=== PATIENT | male | born 1945 | race Caucasian/White ===

== ENCOUNTER → 2017-02-17 | Outpatient (CLI) | payer OTHER ==
[~2017-02-17] MED LIST: AMR2 PO; ASPEC81 PO; GLC500 PO; LISI-725 PO; OXYC-57 PO; SIMV80TA2 PO
[2017-02-17 14:31] LABS: ALT/SGPT 27 U/L (12-78); AST/SGOT 23 U/L (15-37); BLOOD UREA NITROGEN 20 mg/dl (7-18); BUN/CREATININE RATIO 11.6 (10-20); CALCIUM 8.2 mg/dl (8.5-10.1); CARBON DIOXIDE 21 mmol/L (21-32); CHLORIDE 107 mmol/L (98-107); CREATININE 1.72 mg/dl (0.60-1.40); GLUCOSE 96 mg/dl (70-99); HDL CHOLESTEROL 30 mg/dl; POTASSIUM 3.6 mmol/L (3.5-5.1); SODIUM 137 mmol/L (136-145); URIC ACID 6.7 mg/dl (2.6-7.2)
[2017-02-17 14:42] LABS: ALB/GLOB RATIO 0.9 (0.9-2); ALKALINE PHOSPHATASE 109 U/L (45-117); CHOLESTEROL 104 mg/dl (0-200); CHOLESTEROL/HDL RATIO 3.5; LDL CHOLESTEROL CALCULATED 46 mg/dl; TRIGLYCERIDES 141 mg/dl (0-150); VERY LOW DENSITY LIPOPROT CALC 28 mg/dl
[2017-02-18 07:46] LABS: ESTIMATED AVERAGE GLUCOSE 177 mg/dl; HA1C FLAG Normal (Normal)
== END | disposition home or self-care (01) ==
LOC: C.LAB 12:02
PROVIDERS: ATTEND Internal Medicine Pulmonary Disease
DX: M10.00 Idiopathic gout, unspecified site (principal)

== ENCOUNTER → 2017-04-19 | Outpatient (CLI) | payer OTHER ==
--- NOTE | 2017-04-19 11:41 | DIAGNOSTIC IMAGING REPORT ---
(RENAL)RETROPERITON COMP HISTORY: Renal insufficiency N18.3 Chronic kidney disease, stage III (moderate)[id number] COMPARISON: CT dated 2010 FINDINGS: Right kidney: Moderate cortical scarring. Maximum dimension 10.5 cm. Several small cyst measuring 2.1 cm. No evidence for hydronephrosis. Left kidney: Maximum dimension 13.3 cm. 5.1 cm complex partially cystic lesion upper pole left kidney. This appears to be somewhat increased in size compared to a prior cystic and or low density process on the CT study. See noted. Moderate cortical scarring. Bladder: No bladder wall thickening. The bilateral ureteral jets were identified. IMPRESSION: 1. Potential complex 5 cm partially cystic lesion upper pole left kidney. 2. Given the patient's renal function, MRI of the kidneys suggested as follow-up to exclude neoplastic process. 3. Mild cortical scarring of both kidneys with several small cysts. 4. No evidence for hydronephrosis. The above report was generated using voice recognition software. It may contain grammatical, syntax or spelling errors. Electronically signed by: Saleem Mayo M.D. 04/19/2017 11:40 AM Dictated Date/Time: 04/19/2017 11:32 AM
== END | disposition home or self-care (01) ==
LOC: C.ULTRBC 10:50
PROVIDERS: ATTEND Internal Medicine Nephrology
DX: N18.3 Chronic kidney disease, stage 3 (moderate) (principal)

== ENCOUNTER → 2017-05-02 | Outpatient (CLI) | payer OTHER ==
[2017-05-02 18:44] LABS: BASO % 0.7 %; BASO ABS # 0.06 K/uL (0-0.2); EOS % 3.4 %; EOS ABS # 0.29 K/uL (0-0.5); HEMATOCRIT 45.9 % (42-52); HEMOGLOBIN 15.5 g/dL (14.0-18.0); IG# 0.01 K/uL (0.00-0.02); LYMPH % 29.6 %; LYMPH ABS # 2.49 K/uL (1.2-3.4); MEAN CELL VOLUME 92.2 fL (80-100); MEAN CORPUSCULAR HEMOGLOBIN 31.1 pg (25-34); MEAN CORPUSCULAR HGB CONC 33.8 g/dl (32-36); MEAN PLATELET VOLUME 9.7 fL (7.4-10.4); MONO % 5.9 %; NEUT % 60.3 %; NEUT ABS # 5.07 K/uL (1.4-6.5); PLATELET COUNT 206 K/uL (130-400); RED CELL DISTRIBUTION WIDTH CV 13.4 % (11.5-14.5); RED CELL DISTRIBUTION WIDTH SD 44.7 fL (36.4-46.3); WHITE BLOOD COUNT 8.42 K/uL (4.8-10.8)
[2017-05-02 19:05] LABS: ALBUMIN 3.2 gm/dl (3.4-5.0); BLOOD UREA NITROGEN 19 mg/dl (7-18); CALCIUM 9.1 mg/dl (8.5-10.1); CARBON DIOXIDE 26 mmol/L (21-32); CREATININE 1.56 mg/dl (0.60-1.40); GLUCOSE 136 mg/dl (70-99); POTASSIUM 4.2 mmol/L (3.5-5.1); SODIUM 139 mmol/L (136-145)
[2017-05-02 19:06] LABS: PHOSPHORUS 2.2 mg/dl (2.5-4.9)
== END | disposition home or self-care (01) ==
LOC: C.LAB 17:39
PROVIDERS: ATTEND Internal Medicine Nephrology
DX: N18.3 Chronic kidney disease, stage 3 (moderate) (principal); E11.22 Type 2 diabetes mellitus with diabetic chronic kidney disease

== ENCOUNTER → 2017-05-09 | Outpatient (CLI) | payer OTHER ==
[~2017-05-09] MED LIST changes: +GADAVIST IV PRN
--- NOTE | 2017-05-09 16:04 | DIAGNOSTIC IMAGING REPORT ---
ABDOMEN COMBO CLINICAL HISTORY: 71 years-old Male presenting with RENAL CYST, complex left upper pole renal cyst, history of appendectomy. TECHNIQUE: Multisequence, multiplanar MR imaging of the abdomen was performed before and after the administration of intravenous contrast. IV contrast: 11.5 mL of Gadavist. COMPARISON: Renal ultrasound from 04/19/[address] from 10/27/2010. FINDINGS: Localizer images: Unremarkable. Lung bases: Lungs and pleural spaces clear. Normal heart size. No pericardial or pleural effusion. Liver: Normal morphology. Normal hepatic fat fraction (less than 5%). No focal lesion. Patent hepatic vasculature. Biliary: No intrahepatic or extrahepatic biliary ductal dilatation. Normal gallbladder. Pancreas: Moderate parenchymal atrophy. Spleen: Normal. Adrenal glands: Normal. Kidneys and ureters: Complex multilocular 4.4 x 3.9 x 3.6 cm cystic lesion at the upper pole of the left kidney. This is multilobular with numerous septations measuring up to 3 mm in thickness. Septations demonstrate enhancement. Central solid nodularity also noted at the superior aspect. No invasion of the perinephric fat. The mass extends to the renal sinus fat at the upper pole. No vascular invasion. Few subcentimeter well-defined nonenhancing T2 hyperintense simple cysts also noted in both kidneys. No hydronephrosis. Single right renal artery. 2 left renal arteries. Single conventional renal veins. Bowel: Normal. No bowel obstruction. Peritoneal cavity: No free fluid or intraperitoneal gas. Lymph nodes: No enlarged lymph nodes in the abdomen. Vasculature: Aorta and IVC patent and normal in caliber. Abdominal wall: Normal. Musculoskeletal: Normal. IMPRESSION: 1. Complex indeterminate cystic mass measuring 4.4 cm and the left kidney (Bosniak 3). Urologic surgical consultation recommended recommended given the concern for neoplasm. No lymphadenopathy or regional invasion. The report will be called/faxed according to standard departmental protocol. Electronically signed by: Dylan Conklin M.D. 05/09/2017 4:03 PM Dictated Date/Time: 05/09/2017 3:51 PM
== END | disposition home or self-care (01) ==
LOC: C.MRI 14:25
PROVIDERS: ATTEND Internal Medicine Nephrology
DX: N28.1 Cyst of kidney, acquired (principal)

== ENCOUNTER → 2017-05-10 | Outpatient (CLI) | payer OTHER ==
[~2017-05-10] MED LIST changes: -GADAVIST IV PRN
[2017-05-10 12:48] LABS: BLOOD UREA NITROGEN 21 mg/dl (7-18); CREATININE 1.55 mg/dl (0.60-1.40)
== END | disposition home or self-care (01) ==
LOC: C.LAB1850 11:24
PROVIDERS: ATTEND Internal Medicine Nephrology
DX: N18.3 Chronic kidney disease, stage 3 (moderate) (principal)

== ENCOUNTER → 2017-07-18 | Outpatient (CLI) | payer OTHER ==
[2017-07-18 14:38] LABS: BASO % 0.5 %; BASO ABS # 0.04 K/uL (0-0.2); EOS ABS # 0.25 K/uL (0-0.5); HEMATOCRIT 49.5 % (42-52); HEMOGLOBIN 16.5 g/dL (14.0-18.0); IG# 0.02 K/uL (0.00-0.02); LYMPH % 28.4 %; LYMPH ABS # 2.36 K/uL (1.2-3.4); MEAN CELL VOLUME 93.6 fL (80-100); MEAN CORPUSCULAR HEMOGLOBIN 31.2 pg (25-34); MEAN CORPUSCULAR HGB CONC 33.3 g/dl (32-36); MEAN PLATELET VOLUME 9.8 fL (7.4-10.4); MONO % 5.9 %; MONO ABS # 0.49 K/uL (0.11-0.59); NEUT ABS # 5.15 K/uL (1.4-6.5); PLATELET COUNT 184 K/uL (130-400); RED CELL DISTRIBUTION WIDTH CV 13.5 % (11.5-14.5); RED CELL DISTRIBUTION WIDTH SD 45.9 fL (36.4-46.3); WHITE BLOOD COUNT 8.31 K/uL (4.8-10.8)
[2017-07-18 15:34] LABS: ALBUMIN 3.5 gm/dl (3.4-5.0); ALKALINE PHOSPHATASE 105 U/L (45-117); ALT/SGPT 25 U/L (12-78); AST/SGOT 19 U/L (15-37); BLOOD UREA NITROGEN 26 mg/dl (7-18); CALCIUM 9.4 mg/dl (8.5-10.1); CARBON DIOXIDE 27 mmol/L (21-32); CREATININE 1.67 mg/dl (0.60-1.40); GLUCOSE 83 mg/dl (70-99); POTASSIUM 4.5 mmol/L (3.5-5.1); SODIUM 141 mmol/L (136-145); TOTAL PROTEIN 7.4 gm/dl (6.4-8.2)
[2017-07-18 15:36] LABS: CHOLESTEROL 135 mg/dl (0-200); LDL CHOLESTEROL CALCULATED 70 mg/dl
[2017-07-19 06:33] LABS: HEMOGLOBIN A1C 7.1 % (4.5-5.6)
== END | disposition home or self-care (01) ==
LOC: C.LAB1850 13:48
PROVIDERS: ATTEND Internal Medicine Pulmonary Disease
DX: K11.20 Sialoadenitis, unspecified (principal); N18.3 Chronic kidney disease, stage 3 (moderate)

== ENCOUNTER → 2017-08-04 | Outpatient (CLI) | payer OTHER ==
[2017-08-04 14:40] LABS: BASO % 0.6 %; BASO ABS # 0.04 K/uL (0-0.2); EOS % 3.9 %; EOS ABS # 0.28 K/uL (0-0.5); IG# 0.02 K/uL (0.00-0.02); LYMPH % 30.1 %; LYMPH ABS # 2.17 K/uL (1.2-3.4); MEAN CELL VOLUME 91.8 fL (80-100); MEAN CORPUSCULAR HEMOGLOBIN 31.3 pg (25-34); MONO ABS # 0.43 K/uL (0.11-0.59); NEUT % 59.1 %; NEUT ABS # 4.28 K/uL (1.4-6.5); PLATELET COUNT 192 K/uL (130-400); RED CELL DISTRIBUTION WIDTH CV 13.5 % (11.5-14.5); RED CELL DISTRIBUTION WIDTH SD 45.3 fL (36.4-46.3); WHITE BLOOD COUNT 7.22 K/uL (4.8-10.8)
[2017-08-04 15:05] LABS: ALBUMIN 3.4 gm/dl (3.4-5.0); BLOOD UREA NITROGEN 24 mg/dl (7-18); CALCIUM 8.8 mg/dl (8.5-10.1); CARBON DIOXIDE 24 mmol/L (21-32); CREATININE 1.59 mg/dl (0.60-1.40); GLUCOSE 97 mg/dl (70-99); POTASSIUM 4.3 mmol/L (3.5-5.1); SODIUM 140 mmol/L (136-145)
== END | disposition home or self-care (01) ==
LOC: C.LAB1850 13:43
PROVIDERS: ATTEND Internal Medicine Nephrology
DX: N18.3 Chronic kidney disease, stage 3 (moderate) (principal)

== ENCOUNTER → 2017-11-06 | Outpatient (CLI) | payer OTHER ==
[~2017-11-06] MED LIST changes: -AMR2 PO; -ASPEC81 PO; +ATOR-24 PO; +CHOL1000 PO; +CLC100 PO; -GLC500 PO; +GLIM4TAB2 PO; +LEVO100T7 PO; -LISI-725 PO; +METF-384 PO; -OXYC-57 PO; +OXYC7.5T62 PO; -SIMV80TA2 PO
[2017-11-06 13:15] LABS: BASO % 0.5 %; BASO ABS # 0.04 K/uL (0-0.2); EOS ABS # 0.31 K/uL (0-0.5); HEMATOCRIT 44.8 % (42-52); IG# 0.03 K/uL (0.00-0.02); LYMPH % 26.2 %; LYMPH ABS # 2.03 K/uL (1.2-3.4); MEAN CELL VOLUME 92.4 fL (80-100); MEAN CORPUSCULAR HEMOGLOBIN 30.9 pg (25-34); MEAN CORPUSCULAR HGB CONC 33.5 g/dl (32-36); MEAN PLATELET VOLUME 10.2 fL (7.4-10.4); MONO % 6.3 %; MONO ABS # 0.49 K/uL (0.11-0.59); NEUT % 62.6 %; NEUT ABS # 4.86 K/uL (1.4-6.5); PLATELET COUNT 237 K/uL (130-400); RED CELL DISTRIBUTION WIDTH CV 12.9 % (11.5-14.5); RED CELL DISTRIBUTION WIDTH SD 43.6 fL (36.4-46.3); WHITE BLOOD COUNT 7.76 K/uL (4.8-10.8)
[2017-11-06 13:44] LABS: HEMOGLOBIN A1C 6.7 % (4.5-5.6)
[2017-11-06 13:48] LABS: ALBUMIN 3.2 gm/dl (3.4-5.0); BLOOD UREA NITROGEN 26 mg/dl (7-18); CALCIUM 8.8 mg/dl (8.5-10.1); CARBON DIOXIDE 24 mmol/L (21-32); GLUCOSE 100 mg/dl (70-99); PHOSPHORUS 2.7 mg/dl (2.5-4.9); POTASSIUM 4.2 mmol/L (3.5-5.1); SODIUM 139 mmol/L (136-145)
== END | disposition home or self-care (01) ==
LOC: C.LAB1850 12:14
PROVIDERS: ATTEND Internal Medicine Nephrology
DX: N18.3 Chronic kidney disease, stage 3 (moderate) (principal)

== ENCOUNTER 2020-12-06 03:16 | Inpatient (IN) ==
[2020-12-06] MEDS ORDERED: SODIUM CHLORIDE 0.9% 1000ML 1,000 ML IV ONE (04:05)
--- NOTE | 2020-12-06 04:09 | Emergency Department Note ---
Impression & Plan COVID-19, Acute dehydration, Hypoxia, BETTE (acute kidney injury) ED Provider Note Name: GARRY BANUELOS Age: 75 Sex: M Arrives Via: Walk-In Informant: Patient ED Provider: Samson Coronado MD Chief Complaint: Covid Impression: As Above Medical Decision Makin yr old male arrives with acute worsening weakness and cough noting his O2 sats have been in the 80s at home. Exposed 7 days ago and symptoms 4 days ago for COVID which he tested positive for. Afebrile but very dehydrated and mildly dyspneic. CXR with covid findings. Sats gradually trending in to the 80s and thus started IV steroids and placed in NC O2. Given IV fluids and feeling much improvement. No leg swelling nor calf pain and no history dvt/pe. He has mildly elevated Dimer which is within his age range and is consistent with covid. I do not feel this represents PE at this time and given BETTE would not risk contrast bolus. BETTE new compared to previous labs and consistent with dehydration by exam. Initially ekg with lateral ST depressions likely respiratory related as trop is currently normal. Hospitalist will evaluate further. Triage/Nursing Notes reviewed by Me Additional history obtained from chart Differentials:Reactive airway disease, pneumonia, pneumothorax, COPD, CHF, infections, cardiac ischemia, pulmonary embolism, musculoskeletal, gastrointestinal, as well as other pathologies. Vital Signs: reviewed and remarkable for hypoxia, tachypnea Interventions: saline lock, nss bolus, decadron 10mg IV Labs:Reviewed and remarkable for elevated cr Imaging:X ray results are stated below per my interpretation: Chest: 1 view: Viral pattern EKG:Per My Interpretation: Indication Shortness of breath: NSR 89 bpm, qtc 396. New lateral ST depressions. No Ectopy. No Ischemia. Compared to EKG 09/06/17 HR has increased and new lateral ST depressions. Cardiac/Tele Monitoring: Cardiac Monitoring: An Order was placed for continuous cardiac monitoring. The monitor shows a rate of 80 with a normal sinus rhythm. Consults:Dr Lay Hospitalist Plan: Disposition:Hospitalization. Condition: Good History of Present Illness:75 yr old male arrives for evaluation of shortness of breath. Patient with covid exposure 1 week ago then developed sore throat 4 days ago. Worsening cough and had covid test done which was positive. NOtes the last few days very tired, fatigued, with cough and lack of appetite. He has lost 6 lbs in the last few days due to not eating. The last 12 hours feeling short of breath and oxygen was in the 80s at home thus he came to ED. Notes feeling better currently. No current chest pain, syncope, nausea, vomiting, diarrhea, abdominal pain, back pain, leg swelling, calf pain, rashes, fevers, nor other symptoms. He was fully vaccinated vs covid several months ago. No falls, trauma injury. Exertion makes worse, rest makes better. No medications prior to arrival. ROS: See above HPI for pertinent positives & negatives. A total of 10 systems reviewed and were otherwise negative. Past Medical History:See Below Past Surgical History:See Below Family History:See Below Social History:See Below Home Medications:See Below Allergies:NKDA Vitals:Blood Pressure: 112/66, Pulse 95, RR 22, T 36.8C, O2 95% on RA Physical Exam: GENERAL: Patient is tired and dehydrated appearing and in minimal distress. EYES: No scleral icterus, unremarkable pupils. ENT: Mucous membranes dry, no nasal congestion. NECK: No masses appreciated, nomeningismus, trachea is midline. RESPIRATORY: Crackles all lung garcia without dyspnea. Clear to auscultation and equal bilaterally. No wheeze. CARDIOVASCULAR: Regular rate and rhythm.Mild tachypnea, No murmurs, rubs, gallops appreciated. GASTROINTESTINAL: Abdomen soft, non-tender, no peritonitis.Bowel sounds positive.No masses appreciated. BACK: No midline tenderness, no CVA tenderness EXTREMITIES: Normal motion all extremities, no cyanosis, no edema. NEUROLOGIC: Alert and oriented, no acute motor or sensory deficits, no focal weakness, cranial nerves grossly intact. SKIN: No rash, no jaundice, no diaphoresis. PSYCH: Appropriate GCS: 15 ED Course: Times/Reassessments: much improved with NC and NSS bolus Samson Coronado MD Past Med/Surg History Medical History (Updated 12/06/20 @ 06:43 by Elissa Lay DO) BETTE (acute kidney injury) Calcium oxalate stones Complex renal cyst Left renal mass Pneumonia Uric acid nephrolithiasis Surgical History H/O colonoscopy H/O partial nephrectomy S/P appendectomy S/P tonsillectomy and adenoidectomy Family History Father Lung cancer Family/Other Arthritis Social History Smoking Status: Never smoker Hx Alcohol Use: Yes Preferred Language: Greek marital status: Current Living Situation: Spouse current occupational status: employed Feels Safe at Home: Yes Allergies Allergies Allergy/AdvReac Type Severity Reaction Status Date / Time No Known Drug Allergies Allergy Verified 09/15/20 13:58 Home Meds Previous Rx's Medication Instructions Recorded aspirin 81 mg tablet,delayed 81 mg PO DAILY #30 tab 10/31/18 release (Aspir-) levothyroxine 100 mcg capsule 100 mcg PO DAILY #90 cap 02/26/20 tadalafil 20 mg tablet 20 mg PO DAILY PRN #10 tab 03/10/20 lisinopril 10 mg tablet 10 mg PO DAILY #90 tab 03/17/20 atorvastatin 40 mg tablet 40 mg PO DAILY #90 tab 05/11/20 glimepiride 4 mg tablet 2 mg PO QAM #90 tab 05/11/20 metformin 500 mg tablet 500 mg PO DAILY #90 tab 05/11/20 allopurinol 300 mg tablet 300 mg PO DAILY #90 tab 10/26/20 azithromycin 250 mg tablet See Rx Instructions PO .COMPLEX #6 12/03/20 tab Results & Data (ED) Vital Signs Vital Signs - 24 hr 12/06/20 03:22 12/06/20 04:04 12/06/20 05:19 Temperature 36.8 C Temperature Source Temporal Artery Scan Pulse Rate 95 H 81 Pulse Rate [Brachial] 87 Pulse Rate from SpO2 Sensor 80 Respiratory Rate 22 20 Respiratory Effort / Characteristics Non-Labored Spontaneous SOB on Exertion Non-Labored Respiratory Depth Normal Normal Respiratory Pattern Regular Blood Pressure 112/66 113/74 Blood Pressure [Right Arm] 113/74 Blood Pressure Mean 81 87 Blood Pressure Mean [Right Arm] 87 Blood Pressure Position [Right Arm] Lying Pulse Oximetry 95 91 88 L Oxygen Delivery Method Room Air Room Air Room Air Oxygen Flow Rate Sepsis Recent Fever Within 48 Hours No Sepsis New/Unexplained Change in Mental Status No Sepsis Action Taken by Nursing No Action Required 12/06/20 05:20 12/06/20 05:30 12/06/20 06:00 Temperature Temperature Source Pulse Rate 78 79 Pulse Rate [Brachial] Pulse Rate from SpO2 Sensor 76 79 88 Respiratory Rate 38 H 40 H Respiratory Effort / Characteristics Respiratory Depth Respiratory Pattern Blood Pressure 125/63 113/37 L 144/87 H Blood Pressure [Right Arm] Blood Pressure Mean 83 62 106 Blood Pressure Mean [Right Arm] Blood Pressure Position [Right Arm] Pulse Oximetry 94 94 95 Oxygen Delivery Method Nasal Cannula Nasal Cannula Oxygen Flow Rate 2 2 Sepsis Recent Fever Within 48 Hours Sepsis New/Unexplained Change in Mental Status Sepsis Action Taken by Nursing 12/06/20 06:30 Temperature Temperature Source Pulse Rate 79 Pulse Rate [Brachial] Pulse Rate from SpO2 Sensor 79 Respiratory Rate 28 H Respiratory Effort / Characteristics Respiratory Depth Respiratory Pattern Blood Pressure 130/64 Blood Pressure [Right Arm] Blood Pressure Mean 86 Blood Pressure Mean [Right Arm] Blood Pressure Position [Right Arm] Pulse Oximetry 95 Oxygen Delivery Method Nasal Cannula Oxygen Flow Rate 2 Sepsis Recent Fever Within 48 Hours Sepsis New/Unexplained Change in Mental Status Sepsis Action Taken by Nursing Laboratory Data Result diagrams: 12/06/20 04:43 12/06/20 04:43 Lab Results 12/06/20 12/06/20 12/06/20 Range/Units 04:05 04:05 04:43 WBC 13.75 H (4.8-10.8) K/uL RBC 5.02 (4.7-6.1) M/uL Hgb 16.3 (14.0-18.0) g/dL Hct 49.5 (42-52) % MCV 98.6 (80-100) fL MCH 32.5 (25-34) pg MCHC 32.9 (32-36) g/dL RDW Std Deviation 47.5 H (36.4-46.3) fL RDW Coeff of Donna 13.2 (11.5-14.5) % Plt Count 221 (130-400) K/uL MPV 9.9 (7.4-10.4) fL Immature Gran % (Auto) 0.1 % Neut % (Auto) 82.5 % Lymph % (Auto) 8.1 % Winn % (Auto) 6.5 % Eos % (Auto) 2.7 % Baso % (Auto) 0.1 % Neut # (Auto) 11.33 H (1.4-6.5) K/uL Lymph # (Auto) 1.12 L (1.2-3.4) K/uL Winn # (Auto) 0.89 H (0.11-0.59) K/uL Eos # (Auto) 0.37 (0-0.5) K/uL Baso # (Auto) 0.02 (0-0.2) K/uL Immature Gran # (Auto) 0.02 (0.00-0.02) K/uL D-Dimer (0-500) ug/L FEU Sodium (136-145) mmol/L Potassium (3.5-5.1) mmol/L Chloride (98-107) mmol/L Carbon Dioxide (21-32) mmol/L Anion Gap (3-11) BUN (7-18) mg/dl Creatinine (0.6-1.4) mg/dl Est Cr Clr Drug Dosing ml/min Est GFR ( Amer) ml/min Est GFR (Non-Af Amer) ml/min BUN/Creatinine Ratio (10-20) Glucose (70-99) mg/dl Calcium (8.5-10.1) mg/dl Magnesium (1.8-2.4) mg/dl Total Bilirubin (0.2-1) mg/dl Direct Bilirubin (0-0.2) mg/dl AST (15-37) U/L ALT (12-78) U/L Alkaline Phosphatase (45-117) U/L Troponin I (0-0.045) ng/ml Total Protein (6.4-8.2) gm/dl Albumin (3.4-5.0) gm/dl Procalcitonin (0-0.5) ng/ml Urine Color Urine Appearance (Clear) Urine pH (4.5-7.5) Ur Specific [place] (1.000-1.030) Urine Protein (Negative) Urine Glucose (UA) (Negative) Urine Ketones (Negative) Urine Blood (Negative) Urine Nitrite (Negative) Urine Bilirubin (Negative) Urine Urobilinogen (Negative) Ur Leukocyte Esterase (Negative) Urine WBC (Auto) (0-5) /hpf Urine RBC (Auto) (0-4) /hpf U Hyaline Cast (Auto) (0-5) /lpf U Epithel Cells (Auto) (0-5) /lpf Urine Bacteria (Auto) (Negative) Ur Renal Epithelial Cell Granular Casts (0) /lpf Urine Yeast COVID-19 Eval Order Covid19 at [facility] SARS-CoV-2 (PCR) POSITIVE A* (Negative) 12/06/20 12/06/20 12/06/20 Range/Units 04:43 04:43 04:43 WBC (4.8-10.8) K/uL RBC (4.7-6.1) M/uL Hgb (14.0-18.0) g/dL Hct (42-52) % MCV (80-100) fL MCH (25-34) pg MCHC (32-36) g/dL RDW Std Deviation (36.4-46.3) fL RDW Coeff of Donna (11.5-14.5) % Plt Count (130-400) K/uL MPV (7.4-10.4) fL Immature Gran % (Auto) % Neut % (Auto) % Lymph % (Auto) % Winn % (Auto) % Eos % (Auto) % Baso % (Auto) % Neut # (Auto) (1.4-6.5) K/uL Lymph # (Auto) (1.2-3.4) K/uL Winn # (Auto) (0.11-0.59) K/uL Eos # (Auto) (0-0.5) K/uL Baso # (Auto) (0-0.2) K/uL Immature Gran # (Auto) (0.00-0.02) K/uL D-Dimer 730 H* (0-500) ug/L FEU Sodium 137 (136-145) mmol/L Potassium 4.0 (3.5-5.1) mmol/L Chloride 104 (98-107) mmol/L Carbon Dioxide 24 (21-32) mmol/L Anion Gap 9.0 (3-11) BUN 23 H (7-18) mg/dl Creatinine 2.54 H (0.6-1.4) mg/dl Est Cr Clr Drug Dosing 29.5 ml/min Est GFR ( Amer) 27.5 ml/min Est GFR (Non-Af Amer) 23.7 ml/min BUN/Creatinine Ratio 8.9 L (10-20) Glucose 145 H (70-99) mg/dl Calcium 9.4 (8.5-10.1) mg/dl Magnesium 1.9 (1.8-2.4) mg/dl Total Bilirubin 2.7 H (0.2-1) mg/dl Direct Bilirubin 0.8 H (0-0.2) mg/dl AST 19 (15-37) U/L ALT 14 (12-78) U/L Alkaline Phosphatase 99 (45-117) U/L Troponin I < 0.015 (0-0.045) ng/ml Total Protein 7.7 (6.4-8.2) gm/dl Albumin 3.3 L (3.4-5.0) gm/dl Procalcitonin 1.36 H (0-0.5) ng/ml Urine Color Urine Appearance (Clear) Urine pH (4.5-7.5) Ur Specific [place] (1.000-1.030) Urine Protein (Negative) Urine Glucose (UA) (Negative) Urine Ketones (Negative) Urine Blood (Negative) Urine Nitrite (Negative) Urine Bilirubin (Negative) Urine Urobilinogen (Negative) Ur Leukocyte Esterase (Negative) Urine WBC (Auto) (0-5) /hpf Urine RBC (Auto) (0-4) /hpf U Hyaline Cast (Auto) (0-5) /lpf U Epithel Cells (Auto) (0-5) /lpf Urine Bacteria (Auto) (Negative) Ur Renal Epithelial Cell Granular Casts (0) /lpf Urine Yeast COVID-19 Eval Order SARS-CoV-2 (PCR) (Negative) 12/06/20 Range/Units 05:40 WBC (4.8-10.8) K/uL RBC (4.7-6.1) M/uL Hgb (14.0-18.0) g/dL Hct (42-52) % MCV (80-100) fL MCH (25-34) pg MCHC (32-36) g/dL RDW Std Deviation (36.4-46.3) fL RDW Coeff of Donna (11.5-14.5) % Plt Count (130-400) K/uL MPV (7.4-10.4) fL Immature Gran % (Auto) % Neut % (Auto) % Lymph % (Auto) % Winn % (Auto) % Eos % (Auto) % Baso % (Auto) % Neut # (Auto) (1.4-6.5) K/uL Lymph # (Auto) (1.2-3.4) K/uL Winn # (Auto) (0.11-0.59) K/uL Eos # (Auto) (0-0.5) K/uL Baso # (Auto) (0-0.2) K/uL Immature Gran # (Auto) (0.00-0.02) K/uL D-Dimer (0-500) ug/L FEU Sodium (136-145) mmol/L Potassium (3.5-5.1) mmol/L Chloride (98-107) mmol/L Carbon Dioxide (21-32) mmol/L Anion Gap (3-11) BUN (7-18) mg/dl Creatinine (0.6-1.4) mg/dl Est Cr Clr Drug Dosing ml/min Est GFR ( Amer) ml/min Est GFR (Non-Af Amer) ml/min BUN/Creatinine Ratio (10-20) Glucose (70-99) mg/dl Calcium (8.5-10.1) mg/dl Magnesium (1.8-2.4) mg/dl Total Bilirubin (0.2-1) mg/dl Direct Bilirubin (0-0.2) mg/dl AST (15-37) U/L ALT (12-78) U/L Alkaline Phosphatase (45-117) U/L Troponin I (0-0.045) ng/ml Total Protein (6.4-8.2) gm/dl Albumin (3.4-5.0) gm/dl Procalcitonin (0-0.5) ng/ml Urine Color [place] Urine Appearance Cloudy A (Clear) Urine pH 5.0 (4.5-7.5) Ur Specific [place] 1.025 (1.000-1.030) Urine Protein 2+ H (Negative) Urine Glucose (UA) Negative (Negative) Urine Ketones Trace H (Negative) Urine Blood Trace H (Negative) Urine Nitrite Positive A (Negative) Urine Bilirubin 2+ H (Negative) Urine Urobilinogen Negative (Negative) Ur Leukocyte Esterase Trace H (Negative) Urine WBC (Auto) 10-30 H (0-5) /hpf Urine RBC (Auto) 0-4 (0-4) /hpf U Hyaline Cast (Auto) 5-10 H (0-5) /lpf U Epithel Cells (Auto) >30 H (0-5) /lpf Urine Bacteria (Auto) Negative (Negative) Ur Renal Epithelial Cell Not Reportable Granular Casts 1-5 H (0) /lpf Urine Yeast Not Reportable COVID-19 Eval Order SARS-CoV-2 (PCR) (Negative) Administered Medications Azithromycin 500 mg/ Dextrose 255 mls @ 127.5 mls/hr IV NOW STA Stop: 12/06/20 08:34 Last Admin: 12/06/20 06:51 Dose: 127.5 mls/hr Documented by: [id number] Discontinued Medications Dexamethasone Sodium Phosphate (DexamethasonePf 10 Mg/Ml Vial) 10 mg IV NOW ONE Stop: 12/06/20 05:24 Last Admin: 12/06/20 05:32 Dose: 10 mg Documented by: [id number] Sodium Chloride (Nss 1000ml) 1,000 mls @ 999 mls/hr IV .Q1H1M ONE Stop: 12/06/20 05:05 Last Infusion: 12/06/20 05:53 Dose: 0 mls/hr Documented by: [id number] Admin: 12/06/20 04:44 Dose: 999 mls/hr Documented by: [id number] Discharge Plan Visit Data Chief Complaint: Cough Stated Complaint: COVID +, COUGH, CHEST CONGESTION, SOB ED Provider: Samson Coronado Discharge Problem: COVID-19, Acute dehydration, Hypoxia, BETTE (acute kidney injury) Forms Stand Alone Forms: [facility] Prescriptions Prescriptions: No Action aspirin [Aspir-81] 81 mg tablet,delayed release (DR/EC) 81 mg PO DAILY Qty: 30 RF: 2 levothyroxine 100 mcg capsule 100 mcg PO DAILY Qty: 90 RF: 3 lisinopril 10 mg tablet 10 mg PO DAILY Qty: 90 RF: 3 allopurinol 300 mg tablet 300 mg PO DAILY Qty: 90 RF: 3 tadalafil 20 mg tablet 20 mg PO DAILY PRN (Reason: sexual activity) Qty: 10 RF: 3 azithromycin 250 mg tablet See Rx Instructions PO .COMPLEX Qty: 6 RF: 0 metformin 500 mg tablet 500 mg PO DAILY Qty: 90 RF: 3 atorvastatin 40 mg tablet 40 mg PO DAILY Qty: 90 RF: 3 glimepiride 4 mg tablet 2 mg PO QAM Qty: 90 RF: 3 Referrals Referrals: Geovanny Avina MD [Primary Care Provider] -
[2020-12-06 05:04] LABS: Basophils # (auto) 0.02 K/uL (0-0.2); Basophils % (auto) 0.1 %; Eosinophils # (auto) 0.37 K/uL (0-0.5); Eosinophils % (auto) 2.7 %; Hematocrit (blood only) 49.5 % (42-52); Hemoglobin 16.3 g/dL (14.0-18.0); Immature Granulocytes # (auto) 0.02 K/uL (0.00-0.02); Immature Granulocytes % (auto) 0.1 %; Lymphocytes # (auto) 1.12 K/uL (1.2-3.4); Lymphocytes % (auto) 8.1 %; Mean Corpuscular Hemoglobin 32.5 pg (25-34); Mean Corpuscular Hgb Conc 32.9 g/dL (32-36); Mean Corpuscular Volume 98.6 fL (80-100); Mean Platelet Volume 9.9 fL (7.4-10.4); Monocytes # (auto) 0.89 K/uL (0.11-0.59); Monocytes % (auto) 6.5 %; Neutrophils # (auto) 11.33 K/uL (1.4-6.5); Neutrophils % (auto) 82.5 %; Platelet Count 221 K/uL (130-400); RDW Coefficient of Variation 13.2 % (11.5-14.5); RDW Standard Deviation 47.5 fL (36.4-46.3); Red Blood Count 5.02 M/uL (4.7-6.1); White Blood Count 13.75 K/uL (4.8-10.8)
[2020-12-06 05:21] LABS: Alanine Aminotransferase 14 U/L (12-78); Albumin Level 3.3 gm/dl (3.4-5.0); Aspartate Aminotransferase 19 U/L (15-37); BUN Creatinine Ratio 8.9 (10-20); Bilirubin Direct 0.8 mg/dl (0-0.2); Blood Urea Nitrogen 23 mg/dl (7-18); Calcium 9.4 mg/dl (8.5-10.1); Carbon Dioxide 24 mmol/L (21-32); Chloride 104 mmol/L (98-107); Creatinine Clr Calc Pharmacy 29.5 ml/min; Est GFR (African American) 27.5 ml/min; Est GFR (Non-African American) 23.7 ml/min; Glucose 145 mg/dl (70-99); Magnesium 1.9 mg/dl (1.8-2.4); Sodium 137 mmol/L (136-145)
[2020-12-06] MEDS ORDERED: dexAMETHasone**PF** 10 MG/ML VIAL IV ONE (05:23)
[2020-12-06 05:26] LABS: Alkaline Phosphatase 99 U/L (45-117); Bilirubin,Total 2.7 mg/dl (0.2-1); Total Protein 7.7 gm/dl (6.4-8.2); Troponin I < 0.015 ng/ml (0-0.045)
[2020-12-06 05:27] LABS: D Dimer 730 ug/L FEU (0-500)
[2020-12-06 05:55] LABS: Appearance Urine Cloudy (Clear); Bacteria Urine Automated Negative (Negative); Blood Urine Trace (Negative); Color Urine Orange; Epithelial Cell Urine Auto >30 /lpf (0-5); Glucose Urine UA Negative (Negative); Ketones Urine Trace (Negative); Leukocyte Esterase Urine Trace (Negative); Nitrite Urine Positive (Negative); Protein Urine 2+ (Negative); RBC Urine Automated 0-4 /hpf (0-4); Specific Gravity Urine 1.025 (1.000-1.030); Urobilinogen Urine Negative (Negative)
[2020-12-06 06:16] LABS: Bilirubin Urine 2+ (Negative)
[2020-12-06] MEDS ORDERED: AZITHROMYCIN 500 MG in DEXTROSE 5% 250 ML IV STA (06:35)
--- NOTE | 2020-12-06 06:47 | History & Physical Report ---
Date of Service December 06, 2020 Assessment & Plan (1) COVID-19: Plan: 75yo male with history of DM, HTN, CKD-III presenting with Covid-19, hypoxia. Patient is fully vaccinated against Covid having receive both doses of Pfizer vaccine in May. He was exposed to Covid-19 presumably at a wedding 1 week ago. He began experiencing symptoms of sore throat, cough, malaise 4 days ago. He has been monitoring his oxygen saturation at home and reports that today it w as in the 80's which prompted him to come to the ER. SpO2 of 88% on room air on arrival. Patient is coughing and clearing his throat. He is currently saturating well on 2L NC at 95%. Labs significant for elevated WBC count, lymphopenia, elevated Ddimer of 730, elevated Procalcitonin at 1.36 -Admit to medical -Maintain isolation precautions -Check CRP, Ferritin and LDH -Dexamethasone 6mg IV daily - patient received first dose in the ER -He is unable to receive Remdesivir due to GFR of 23.7 -Supplemental O2 as needed to maintain saturation >92 -Proning as tolerated -Tessalon, Tylenol, Albuterol PRN -Heparin 75oou TID (2) CKD (chronic kidney disease), stage III: Plan: Patient with history of CKD II presenting with BETTE - Cr of 2.51. Possibly secondarty to pre-renal azotemia, patient reports poor oral intake -Hold nephrotoxic agents - Lisinopril -Renal dosing where needed -IVF with LR at 100mL/hr x 1L - cautious use of fluids in Covid with hypoxia -Monitor BUN, Cr, Electrolytes and UOP (3) Diabetes mellitus: Plan: Blood sugar = 145 currently -Hold oral agents, Glimepiride and Metformin -Lantus 7u BID, Insulin sliding scale -Goal blood sugar 100- 140 (4) Hypothyroidism: Plan: Chronic -Continue Synthroid 100mcg po daily (5) Dyslipidemia: Plan: Chronic -Continue Atorvastatin 40 mg po daily (6) Hyperuricemia: Plan: Chronic -Continue Allopurinol daily - will decrease dose to 200mg po daily for renal function (7) Hypertension: Plan: Blood pressure stable -Hold Lisinopril in setting of BETTE on CKD -Montior Plan: F/E/N - LR at 100mL/hr x 1 liter, monitor electrolytes, check PO4 x 1 and replete if necessary, CC diet as tolerated Ppx - Heparin 75oo TID Code - Full Dispo - Admit to medical, Covid-unit History of Present Illness Chief Complaint: Covid-19, hypoxia Primary Care Provider: Geovanny Avina MD Reid Jaeger is a pleasant 75yo male with history of DM, HTN, CKD presenting with Covid-19 pneumonia, hypoxia. Patient received both doses of his Pfizer vaccine. He was exposed to Covid-19 appx 1 week ago at a wedding. He developed a sore throat, cough, fatigue, malaise, decreased appetite and SOB appx 4 days ago. The shortness of breath has been progressive. Patient had a Covid-19 test performed at [facility] which was POSITIVE. He started Azithromycin yesterday. Patient feels tightness in his chest and feeling to cou gh something up. No additional complaints at this time. He denies CP/palpitations/abdominal pain/nausea/vomiting/diarrhea or constipation. ER Course: NSS, Dexamethasone Allergies Allergy/AdvReac Type Severity Reaction Status Date / Time No Known Drug Allergies Allergy Verified 09/15/20 13:58 Home Medications Medication Instructions Recorded Confirmed Type aspirin 81 mg tablet,delayed 81 mg PO DAILY #30 tab 10/31/18 12/06/20 Rx release (Aspir-) levothyroxine 100 mcg capsule 100 mcg PO DAILY #90 cap 02/26/20 12/06/20 Rx tadalafil 20 mg tablet 20 mg PO DAILY PRN #10 tab 03/10/20 12/06/20 Rx lisinopril 10 mg tablet 10 mg PO DAILY #90 tab 03/17/20 12/06/20 Rx atorvastatin 40 mg tablet 40 mg PO DAILY #90 tab 05/11/20 12/06/20 Rx glimepiride 4 mg tablet 2 mg PO QAM #90 tab 05/11/20 12/06/20 Rx metformin 500 mg tablet 500 mg PO DAILY #90 tab 05/11/20 12/06/20 Rx allopurinol 300 mg tablet 300 mg PO DAILY #90 tab 10/26/20 12/06/20 Rx azithromycin 250 mg tablet See Rx Instructions PO .COMPLEX #6 12/03/20 12/06/20 Rx tab Past Med/Surg History Medical History (Updated 09/12/21 @ 06:43 by Elissa Lay DO) BETTE (acute kidney injury) Calcium oxalate stones Complex renal cyst Left renal mass Pneumonia Uric acid nephrolithiasis Surgical History H/O colonoscopy H/O partial nephrectomy S/P appendectomy S/P tonsillectomy and adenoidectomy Family History Father Lung cancer Family/Other Arthritis Social History Smoking Status: Never smoker Hx Alcohol Use: Yes Preferred Language: Cambodian marital status: Current Living Situation: Spouse current occupational status: employed Feels Safe at Home: Yes Review of Systems Review of Systems: All systems reviewed & are unremarkable except as noted in HPI & below Physical Exam Physical Exam: General: patient resting comfortably, NAD, non-toxic in appearance, AA&O x 4 Skin: warm, dry, intact, no rashes or lesions HEENT: NC/AT, PERRL, EOMI, anicteric sclera, conjunctiva without injection, external ear normal to inspection and nontender, nares patent, moist mucus membr anes, dentition intact, no oropharyngeal lesions, neck supple, trachea midline, no LAD, no thyromegaly, no JVD Heart: +S1/S2, regular, no m/r/g Lungs: equal air entry bilaterally, no rales/rhonchi/wheezes Abd: +BS, soft, NT/ND, no masses/organomegaly/ascites Ext: warm, 2+ pulses in UE/LE bilaterally, no clubbing/cyanosis or edema Neuro: nonfocal, patient AA&O x 4, speech intact, no facial droop, moving all extremities on command with equal strength 5/5 Results & Data Results & Data ([facility]) Vital Signs (Past 12 Hours) Vital Signs Temp Pulse Pulse Resp BP BP Pulse Ox 12/06/20 06:30 79 28 H 130/64 95 12/06/20 06:00 144/87 H 95 12/06/20 05:30 79 40 H 113/37 L 94 12/06/20 05:20 78 38 H 125/63 94 12/06/20 05:19 88 L 12/06/20 04:04 81 87 20 113/74 113/74 91 12/06/20 03:22 36.8 C 95 H 22 112/66 95 Laboratory Results Laboratory Results WBC 13.75 K/uL (4.8-10.8) H 12/06/20 04:43 RBC 5.02 M/uL (4.7-6.1) 12/06/20 04:43 Hgb 16.3 g/dL (14.0-18.0) 12/06/20 04:43 Hct 49.5 % (42-52) 12/06/20 04:43 MCV 98.6 fL (80-100) 12/06/20 04:43 MCH 32.5 pg (25-34) 12/06/20 04:43 MCHC 32.9 g/dL (32-36) 12/06/20 04:43 RDW Std Deviation 47.5 fL (36.4-46.3) H 12/06/20 04:43 RDW Coeff of Donna 13.2 % (11.5-14.5) 12/06/20 04:43 Plt Count 221 K/uL (130-400) 12/06/20 04:43 MPV 9.9 fL (7.4-10.4) 12/06/20 04:43 Immature Gran % (Auto) 0.1 % 12/06/20 04:43 Neut % (Auto) 82.5 % 12/06/20 04:43 Lymph % (Auto) 8.1 % 12/06/20 04:43 [place] % (Auto) 6.5 % 12/06/20 04:43 Eos % (Auto) 2.7 % 12/06/20 04:43 Baso % (Auto) 0.1 % 12/06/20 04:43 Neut # (Auto) 11.33 K/uL (1.4-6.5) H 12/06/20 04:43 Lymph # (Auto) 1.12 K/uL (1.2-3.4) L 12/06/20 04:43 [place] # (Auto) 0.89 K/uL (0.11-0.59) H 12/06/20 04:43 Eos # (Auto) 0.37 K/uL (0-0.5) 12/06/20 04:43 Baso # (Auto) 0.02 K/uL (0-0.2) 12/06/20 04:43 Immature Gran # (Auto) 0.02 K/uL (0.00-0.02) 12/06/20 04:43 D-Dimer 730 ug/L FEU (0-500) H* 12/06/20 04:43 Sodium 137 mmol/L (136-145) 12/06/20 04:43 Potassium 4.0 mmol/L (3.5-5.1) 12/06/20 04:43 Chloride 104 mmol/L (98-107) 12/06/20 04:43 Carbon Dioxide 24 mmol/L (21-32) 12/06/20 04:43 Anion Gap 9.0 (3-11) 12/06/20 04:43 BUN 23 mg/dl (7-18) H 12/06/20 04:43 Creatinine 2.54 mg/dl (0.6-1.4) H 12/06/20 04:43 Est Cr Clr Drug Dosing 29.5 ml/min 12/06/20 04:43 Est GFR ( Amer) 27.5 ml/min 12/06/20 04:43 Est GFR (Non-Af Amer) 23.7 ml/min 12/06/20 04:43 BUN/Creatinine Ratio 8.9 (10-20) L 12/06/20 04:43 Glucose 145 mg/dl (70-99) H 12/06/20 04:43 Calcium 9.4 mg/dl (8.5-10.1) 12/06/20 04:43 Magnesium 1.9 mg/dl (1.8-2.4) 12/06/20 04:43 Total Bilirubin 2.7 mg/dl (0.2-1) H 12/06/20 04:43 Direct Bilirubin 0.8 mg/dl (0-0.2) H 12/06/20 04:43 AST 19 U/L (15-37) 12/06/20 04:43 ALT 14 U/L (12-78) 12/06/20 04:43 Alkaline Phosphatase 99 U/L (45-117) 12/06/20 04:43 Troponin I < 0.015 ng/ml (0-0.045) 12/06/20 04:43 Total Protein 7.7 gm/dl (6.4-8.2) 12/06/20 04:43 Albumin 3.3 gm/dl (3.4-5.0) L 12/06/20 04:43 Procalcitonin 1.36 ng/ml (0-0.5) H 12/06/20 04:43 Urine Color [place] 12/06/20 05:40 Urine Appearance Cloudy (Clear) A 12/06/20 05:40 Urine pH 5.0 (4.5-7.5) 12/06/20 05:40 Ur Specific [place] 1.025 (1.000-1.030) 12/06/20 05:40 Urine Protein 2+ (Negative) H 12/06/20 05:40 Urine Glucose (UA) Negative (Negative) 12/06/20 05:40 Urine Ketones Trace (Negative) H 12/06/20 05:40 Urine Blood Trace (Negative) H 12/06/20 05:40 Urine Nitrite Positive (Negative) A 12/06/20 05:40 Urine Bilirubin 2+ (Negative) H 12/06/20 05:40 Urine Urobilinogen Negative (Negative) 12/06/20 05:40 Ur Leukocyte Esterase Trace (Negative) H 12/06/20 05:40 Urine WBC (Auto) 10-30 /hpf (0-5) H 12/06/20 05:40 Urine RBC (Auto) 0-4 /hpf (0-4) 12/06/20 05:40 U Hyaline Cast (Auto) 5-10 /lpf (0-5) H 12/06/20 05:40 U Epithel Cells (Auto) >30 /lpf (0-5) H 12/06/20 05:40 Urine Bacteria (Auto) Negative (Negative) 12/06/20 05:40 Ur Renal Epithelial Cell Not Reportable 12/06/20 05:40 Granular Casts 1-5 /lpf (0) H 12/06/20 05:40 Urine Yeast Not Reportable 12/06/20 05:40 COVID-19 Eval Order Covid19 at [facility] 12/06/20 04:05 SARS-CoV-2 (PCR) POSITIVE (Negative) A* 12/06/20 04:05 Code Status & VTE Plan VTE Prophylaxis Plan VTE Prophylaxis will be ordered: Yes PG Care Time/CCT Total # of Minutes Spent Total Time Spent with Patient: Total time spent is greater than 50% in coordination of care (as documented) at patient's floor/unit and/or counseling patient: Coding Level of Care Code 39785 Initial Inpt Care Lvl 3 Diagnoses Hypothyroidism E03.9 Dyslipidemia E78.5 Hyperuricemia E79.0 CKD (chronic kidney disease), stage III N18.3 Diabetes mellitus E11.9 Hypertension I10 COVID-19 U07.1
--- NOTE | 2020-12-06 09:06 | XRay Report ---
XR chest 1V portable HISTORY: Cough. Shortness of breath. Covid positive. COMPARISON: Chest 05/06/2019. FINDINGS: No pneumothorax. No pleural effusions. The heart is normal in size. There are faint patchy bibasilar densities, left greater than right. There are lung zones are clear. IMPRESSION: Faint patchy bibasilar densities likely representing a viral pneumonia. ACT 112: Negative or not required by law. Electronically signed by: Ajay John M.D. 12/06/2020 9:05 AM
--- NOTE | 2020-12-06 10:01 | Electrocardiogram Report ---
Test Reason : Blood Pressure : / mmHG Vent. Rate : 089 BPM Atrial Rate : 089 BPM P-R Int : 162 ms QRS Dur : 080 ms QT Int : 326 ms P-R-T Axes : 055 016 010 degrees QTc Int : 396 ms Normal sinus rhythm Nonspecific ST abnormality Abnormal ECG When compared with ECG of 06-SEP-2017 15:54, Vent. rate has increased BY [address] depression is slightly worse Confirmed by Dudley Wilde ([id number]) on 12/06/2020 10:01:22 AM Referred By: REFERRED SELF Confirmed By:Dudley Wilde
[2020-12-06] MEDS ORDERED: cefTRIAXone SODIUM 2,000 MG/70 ML BAG IV STA (10:49)
[2020-12-06] MEDS ORDERED: ACETAMINOPHEN 325 MG TAB PO PRN (11:24)
[2020-12-06] MEDS ORDERED: GLUCAGON FOR INJ 1 MG VIAL SQ PRN (11:24)
[2020-12-06] MEDS ORDERED: DEXTROSE 50% 50 ML SYRINGE IV PRN (11:24)
[2020-12-06] MEDS ORDERED: GLUCOSE 10 TABS/TUBE PO PRN (11:24)
[2020-12-06] MEDS ORDERED: GLUCOSE 40% GEL 15 GM TUBE PO PRN (11:24)
[2020-12-06] MEDS ORDERED: LACTATED RINGER'S 1,000 ML IV SCH (11:24)
[2020-12-06] MEDS ORDERED: ONDANSETRON INJ 2 MG/ML 2 ML VIAL IV PRN (11:24)
[2020-12-06 12:01] LABS: C Reactive Protein 18.2 mg/dl (0-0.29); Ferritin 503.3 ng/ml (8-388); Phosphorus 2.6 mg/dl (2.5-4.9)
[2020-12-06] MEDS: INSULIN ASPART 100 UNITS/ML 3 ML PEN SC SCH ×4 (13:30→21:37)
[2020-12-06] MEDS: allopurinoL 100 MG TAB PO SCH (13:33)
[2020-12-06] MEDS: ASPIRIN 81 MG ECTAB PO SCH (13:33)
[2020-12-06] MEDS: ATORVASTATIN 40 MG TAB PO SCH (13:34)
[2020-12-06] MEDS: ALBUTEROL HFA 8 GM INHALER INH SCH ×4 (13:48→23:32)
[2020-12-06] MEDS: LEVOTHYROXINE SODIUM 100 MCG TABLET PO SCH (13:53)
[2020-12-06] MEDS: HEPARIN SOD 5,000 UNIT/0.5 ML VIAL SQ SCH ×2 (13:55→21:39)
[2020-12-06] MEDS: INSULIN GLARGINE SOLOSTAR 100 UNITS/ML 3 ML PEN SC SCH ×2 (15:00→21:28)
[2020-12-06] MEDS ORDERED: PNEUMOCOCCAL Polysaccharide Vaccine 25mcg/0.5mL vial/Syr IM ONE (16:00)
[2020-12-06 19:03] LABS: BUN Creatinine Ratio 14.3 (10-20); Calcium 9.2 mg/dl (8.5-10.1); Est GFR (African American) 28.1 ml/min; Est GFR (Non-African American) 24.2 ml/min
[2020-12-06 19:14] LABS: Beta-Hydroxybutyrate 2.53 mg/dl (0.2-2.81)
[2020-12-06] MEDS ORDERED: INSULIN HUMAN REGULAR PER UNIT 10 UNITS in SYRINGE 9.9 ML IV ONE (21:30)
--- NOTE | 2020-12-06 22:37 | Communication Note ---
Date of Service: December 06, 2020 Saw patient this afternoon in his room on [address]. He was sitting at the side of the bed eating his meal. He had nonproductive cough. Reports he attended a family reunion last Monday, followed by a wedding attended by ~200 guests this past Monday. The wedding was indoors; no masking occurred. He and his are both vaccinated. He has had COVID symptoms for only 4-5 days. He has no prior lung disease. tested + for COVID as well. We discussed proning during my visit. VSS, afebrile requiring 2 L NC gen - sickly but nontoxic, pleasant, a/o x 3 mouth - MM slightly dry neck - no JVD heart - RRR, s1 s2, no murmur lungs - bibasilar rales, airation poor, no wheeze, no increased work of breathing abd - soft NT ext - no edema labs, imaging all reviewed Cr 2.5 casts noted on u/a shortly after the visit I repeated his BMP with the hopes his Cr would be improved so that we could initiate remdesivir. unfortunately Cr remains 2.5 with CrCl upper 20s. defer on remdesivir for now. A/P: COVID-19 pneumonia with resulting acute hypoxic resp failure. Elevated procal. Acute kidney injury - prerenal based on casts, etc. Baseline CKD stage 3b. Uncontrolled T2DM. Cont dexamethasone. Proning, flutter, incentive - discussed. If morning creatinine / CrCl are improved initiate remdesivir. Due to elevated procal added zithromax/rocephin for possible bacterial superinfection in setting of COVID. U/a somewhat suggestive of UTI - rocephin will cover. Inflammatory markers all very high - at risk of worsening disease. It is already concerning that he is requiring O2 at only 4-5 days into the illness. updated by phone this evening. Bradford Padilla MD
[2020-12-07] MEDS: ALBUTEROL HFA 8 GM INHALER INH SCH ×2 (03:43→07:48)
[2020-12-07] MEDS: LEVOTHYROXINE SODIUM 100 MCG TABLET PO SCH (06:18)
[2020-12-07] MEDS: dexAMETHasone 6 MG in SYRINGE 0 ML IV SCH (06:21)
[2020-12-07] MEDS: HEPARIN SOD 5,000 UNIT/0.5 ML VIAL SQ SCH ×3 (06:21→20:52)
[2020-12-07] MEDS: ATORVASTATIN 40 MG TAB PO SCH (08:18)
[2020-12-07] MEDS: allopurinoL 100 MG TAB PO SCH (08:18)
[2020-12-07] MEDS: ASPIRIN 81 MG ECTAB PO SCH (08:18)
[2020-12-07] MEDS: AZITHROMYCIN 250 MG in DEXTROSE 5% 250 ML IV SCH (08:18)
[2020-12-07] MEDS: INSULIN ASPART 100 UNITS/ML 3 ML PEN SC SCH ×4 (08:49→20:51)
[2020-12-07] MEDS ORDERED: INSULIN GLARGINE SOLOSTAR 100 UNITS/ML 3 ML PEN SC SCH (09:00)
[2020-12-07 10:14] LABS: Estimated Average Glucose 157 mg/dl; Hemoglobin A1C 7.1 % (4.5-5.6)
[2020-12-07 10:38] LABS: Albumin Level 2.9 gm/dl (3.4-5.0); BUN Creatinine Ratio 20.2 (10-20); Bilirubin Direct 0.2 mg/dl (0-0.2); Bilirubin,Total 0.8 mg/dl (0.2-1); C Reactive Protein 17.9 mg/dl (0-0.29); Creatinine Clr Calc Pharmacy 31.5 ml/min; Est GFR (African American) 29.8 ml/min; Est GFR (Non-African American) 25.7 ml/min; Potassium 3.9 mmol/L (3.5-5.1); Total Protein 7.5 gm/dl (6.4-8.2)
[2020-12-07 11:01] LABS: Beta-Hydroxybutyrate 1.85 mg/dl (0.2-2.81)
[2020-12-07] MEDS ORDERED: BENZONATATE 100 MG CAPSULE PO PRN (13:09)
[2020-12-07] MEDS ORDERED: SODIUM CHLORIDE 0.9% 500 ML IV SCH (13:15)
[2020-12-07] MEDS ORDERED: ALBUT/IPRATROP 3MG/0.5MG NEB 3 ML VIAL NEB PRN (14:06)
[2020-12-07] MEDS ORDERED: REMDESIVIR 200 MG in SODIUM CHLORIDE 0.9% 210 ML IV ONE (14:30)
[2020-12-07] MEDS ORDERED: ALBUT/IPRATROP 3MG/0.5MG NEB 3 ML VIAL NEB SCH (15:00)
--- NOTE | 2020-12-07 17:10 | Hospitalist Progress Note ---
Date of Service December 07, 2020 Assessment & Plan (1) COVID-19: Plan: 75yo male with history of DM, HTN, CKD-III presenting with Covid-19, hypoxia. Patient is fully vaccinated against Covid having receive both doses of Pfizer vaccine in May. He was exposed to Covid-19 presumably at a wedding 1 week ago. He began experiencing symptoms of sore throat, cough, malaise 4 days [employer]. He has been monitoring his oxygen saturation at home and reported pulse ox in th e 80s which prompted him to come to the emergency department. SpO2 of 88% on room air on arrival. Labs significant for elevated WBC count, lymphopenia, elevated Ddimer of 730, elevated Procalcitonin at 1.36. In addition, CRP 18.2/ESR 81 * Continue supplemental oxygen (to maintain goal pulse ox greater/equal to 88%). Currently pulse ox stable on 4 L of supplemental oxygen * Initially, no remdesivir given due to his creatinine clearance of 23. With subtle improvement, creatinine clearance is better at 31. Will initiate remdesivir and monitor renal function closely * Continue IV Decadron * Add mucolytic agents, antitussives as needed, and continued as needed neb treatments * Proning encouraged as patient can tolerate * Continue incentive spirometry and Acapella flutter valve * Encouraged out of bed to chair * Continue empiric antibiotic therapy (Rocephin/azithromycin) given elevated procalcitonin and possibility of secondary bacterial infection * Given elevated D-dimer (which may be elevated simply from Covid), and hypoxemia requiring supplemental oxygenwill obtain a CTA to rule out PE. Not ideal given his renal dysfunction; however, I feel it is important to rule out at this point given associated coagulopathies from Covid * Add zinc/vitamin C for immune support (2) CKD (chronic kidney disease), stage III: Plan: Patient with history of CKD II presenting with BETTE - Cr 2.51 to 2.31 today. Possibly secondarty to pre-renal azotemia, patient reports poor oral intake -Continue to hold nephrotoxic agents - Lisinopril -Renal dosing where needed -Patient did receive 1 L of LR. Subtle improvement in creatinine. Will provide additional 1 L overnight watching closely for S/S volume overload (3) Diabetes mellitus: Plan: With hyperglycemia (300s) * Glimepiride and Metformin currently on hold * Based on weigh, patient should be receiving 26 units of basal insulin twice a day. since he is insulin jd, was started on 15 units. he remains very hyperglycemicwe will increase Lantus to 20 units insulin sliding scale * Add NPH in a.m. to help counteract effects from Decadron * Continue sliding scale with correction dosing (4) Hypothyroidism: Plan: Chronic -Continue Synthroid 100mcg po daily (5) Dyslipidemia: Plan: Chronic -Continue Atorvastatin 40 mg po daily (6) Hyperuricemia: Plan: Chronic -Continue Allopurinol daily - will decrease dose to 200mg po daily for renal function (7) Hypertension: Plan: Blood pressure stable -Hold Lisinopril in setting of BETTE on CKD -Montior Plan: * Plan of care to be discussed with Dr. Vasques. Further orders as warranted. * There is concerned that symptomatology may get worse around days 10 through 12; however, patient main remained stable seeing as he is fully vaccinated. Admission and Anticipated Discharge Date Admission Date: December 06, 2020 Subjective Patient seen on daily rounds today. He is a 75-year-old white male with a past medical history of NIDDM, HTN, CKD, and hypothyroidism. Hospitalized 12/06 with Covid associated pneumonia. Patient is fully vaccinated Symptom onset approximately 5 to 6 days ago Found to be hypoxic (mid 80s) in the ED while on room air. Today is requiring 4 L to keep his pulse ox in the low to mid 90s. White count was 13.75 upon presentation with a mildly elevated procalcitonin. He has since been started empirically on antibiotic therapy for possible secondary infection (azithromycin/Rocephin). Creatinine clearance was 23 yesterday so he was not started on remdesivir. C reatinine was 2.5. Is 2.3 today. Baseline with review of old records is around 1.4. He reports his sore throat has been so severe that he has not been eating or drinking much. Has had some mild loose stools but no nausea or vomiting. Blood sugars remain elevated in the 300s. He is on IV Decadron. At present, he denies dyspnea with the use of oxygen. Still is coughing. Cough worse with deep inhalation. Denies fevers, chills, hemoptysis, orthopnea, PND, abdominal pain, nausea, vomiting. Denies loss of taste or smell. Review of Systems Review of Systems: All systems reviewed and are unremarkable except as noted in HPI and below Denies fevers, chills, headache, nasal congestion, sore throat, cough, chest pain, shortness of breath, abdominal pain, nausea, vomiting, dysuria, hematuria, frequency, skin lesions or rashes. Physical Exam Physical Exam: General: Resting comfortably in his hospital bed. Does not appear ill or toxic. NAD. HEENT: Buccal mucosa dry and tacky Neck: No JVD. Negative hepatojugular reflex Cardiac: RRR with 2/6 MARY ANN Lungs: Speaking full sentences on supplemental oxygen. Diminished breath sounds predominantly in the bases. No wheezes, rales or rhonchi. Does have positive bibasilar egophony Abdomen: Normoactive X4. Soft and nontender in all quadrants. Extremities: No peripheral clubbing cyanosis or edema Neuro: A&O X4 cranial nerves II through XII are grossly intact no focal neuro deficits Skin: No obvious skin lesions or rashes Results & Data Results & Data ([facility]) Vital Signs (Past 12 Hours) Vital Signs Temp Pulse Resp BP Pulse Ox 12/07/20 08:00 36.8 C 80 18 135/80 93 12/07/20 07:51 72 18 94 Laboratory Results 12/06/20 04:43 12/07/20 09:41 PG Care Time/CCT Total # of Minutes Spent Total Time Spent with Patient: Total time spent is greater than 50% in coordination of care (as documented) at patient's floor/unit and/or counseling patient: C[place] [address] Subseq Hosp Care Lvl 3 Patient Type Established History Detailed Exam Detailed Medical Decision Making High Complexity Diagnoses COVID-19 U07.1 CKD (chronic kidney disease), stage III N18.3 Diabetes mellitus E11.9 Hypothyroidism E03.9 Dyslipidemia E78.5 Hyperuricemia E79.0 Hypertension I10
[2020-12-07] MEDS: SODIUM CHLORIDE 0.9% 10ML FLUSH IV SCH (17:41)
[2020-12-07] MEDS: guaiFENesin 600 MG TABCR PO SCH (20:50)
--- NOTE | 2020-12-07 21:03 | Nuclear Medicine Report ---
NUCLEAR MEDICINE VENTILATION/PERFUSION SCAN CLINICAL HISTORY: Elevated d-dimer. Patient is poorly positive. Rule out PE. COMPARISON: None TECHNIQUE: The ventilation portion of the study was not performed due to Covid restriction. imaging of the chest was carried out in the anterior, posterior, left lateral, right lateral, LPO, RPO, [place] a nd PRABHAKAR projections. For the perfusion portion of exam, 4.4 mCi of technetium 99m MAA was injected IV . Immediately following injection, imaging of the chest was carried out in multiple projections. FINDINGS: No peripheral photopenic/perfusion defect is seen within bilateral lung to suggest pulmonary embolus. Area of slightly decreased in the radiotracer activity is seen within 13 and 14 segments without per ipheral extension IMPRESSION: Low probability for pulmonary embolus. Suboptimal study due to lack of ventilation imag ing. ACT 112: Negative or not required by law. Electronically signed by: Ailyn Arambula DO 12/07/2020 9:02 PM
[2020-12-07] MEDS: INSULIN GLARGINE SOLOSTAR 100 UNITS/ML 3 ML PEN SC SCH (21:10)
[2020-12-08] MEDS: HEPARIN SOD 5,000 UNIT/0.5 ML VIAL SQ SCH ×3 (05:57→22:08)
[2020-12-08] MEDS: dexAMETHasone 6 MG in SYRINGE 0 ML IV SCH (05:57)
[2020-12-08] MEDS: LEVOTHYROXINE SODIUM 100 MCG TABLET PO SCH (06:03)
[2020-12-08 08:56] LABS: Basophils # (auto) 0.01 K/uL (0-0.2); Basophils % (auto) 0.1 %; Eosinophils # (auto) 0.08 K/uL (0-0.5); Eosinophils % (auto) 0.4 %; Hemoglobin 14.8 g/dL (14.0-18.0); Immature Granulocytes # (auto) 0.06 K/uL (0.00-0.02); Immature Granulocytes % (auto) 0.3 %; Lymphocytes # (auto) 0.45 K/uL (1.2-3.4); Lymphocytes % (auto) 2.5 %; Mean Corpuscular Hemoglobin 32.4 pg (25-34); Mean Corpuscular Hgb Conc 33.6 g/dL (32-36); Mean Corpuscular Volume 96.3 fL (80-100); Mean Platelet Volume 10.1 fL (7.4-10.4); Monocytes % (auto) 3.8 %; Neutrophils # (auto) 17.03 K/uL (1.4-6.5); Neutrophils % (auto) 92.9 %; Platelet Count 231 K/uL (130-400); RDW Coefficient of Variation 13.2 % (11.5-14.5); RDW Standard Deviation 46.8 fL (36.4-46.3); Red Blood Count 4.57 M/uL (4.7-6.1); White Blood Count 18.33 K/uL (4.8-10.8)
[2020-12-08] MEDS ORDERED: INSULIN HUMAN NPH SC SCH (09:00)
[2020-12-08] MEDS: ASCORBIC ACID 500 MG TAB PO SCH (09:18)
[2020-12-08] MEDS: allopurinoL 100 MG TAB PO SCH (09:18)
[2020-12-08] MEDS: ASPIRIN 81 MG ECTAB PO SCH (09:19)
[2020-12-08] MEDS: ATORVASTATIN 40 MG TAB PO SCH (09:19)
[2020-12-08] MEDS: guaiFENesin 600 MG TABCR PO SCH ×2 (09:19→22:08)
[2020-12-08] MEDS: ZINC SULFATE 220 MG CAPSULE PO SCH (09:20)
[2020-12-08] MEDS: AZITHROMYCIN 250 MG in DEXTROSE 5% 250 ML IV SCH (09:25)
[2020-12-08 09:26] LABS: Albumin Globulin Ratio 0.6 (0.9-2); Albumin Level 2.6 gm/dl (3.4-5.0); BUN Creatinine Ratio 23.6 (10-20); Bilirubin,Total 0.3 mg/dl (0.2-1); Calcium 9.7 mg/dl (8.5-10.1); Creatinine Clr Calc Pharmacy 33.6 ml/min; Est GFR (African American) 32.2 ml/min; Est GFR (Non-African American) 27.8 ml/min; Globulin 4.5 gm/dl (2.5-4.0); Magnesium 2.3 mg/dl (1.8-2.4); Potassium 4.5 mmol/L (3.5-5.1); Total Protein 7.1 gm/dl (6.4-8.2)
[2020-12-08] MEDS: INSULIN GLARGINE SOLOSTAR 100 UNITS/ML 3 ML PEN SC SCH ×2 (09:44→21:55)
[2020-12-08] MEDS ORDERED: PNEUMOCOCCAL POLYSACCHARIDES 25 MCG/0.5 ML VIAL/SYR IM ONE (10:30)
[2020-12-08] MEDS: INSULIN ASPART 100 UNITS/ML 3 ML PEN SC SCH ×4 (10:41→21:55)
[2020-12-08] MEDS: REMDESIVIR 100 MG in SODIUM CHLORIDE 0.9% 230 ML IV SCH (11:44)
[2020-12-08] MEDS: SODIUM CHLORIDE 0.9% 10ML FLUSH IV SCH (13:55)
--- NOTE | 2020-12-08 16:01 | Hospitalist Progress Note ---
Date of Service December 08, 2020 Assessment & Plan (1) COVID-19: Plan: 75yo male with history of DM, HTN, CKD-III presenting with Covid-19, hypoxia. Patient is fully vaccinated against Covid having receive both doses of Pfizer vaccine in May. He was exposed to Covid-19 presumably at a wedding 1 week ago. He began experiencing symptoms of sore throat, cough, malaise 4 days [employer]ING [employer]ING [employer]. He has been monitoring his oxygen saturation at home and reported pulse ox in th e 80s which prompted him to come to the emergency department. SpO2 of 88% on room air on arrival. Labs significant for elevated WBC count, lymphopenia, elevated Ddimer of 730, elevated Procalcitonin at 1.36. In addition, CRP 18.2/ESR 81 * Continue supplemental oxygen (to maintain goal pulse ox greater/equal to 88%). Encourage nursing staff to down titrate as he does not currently need 5 L. * Patient is requiring increased oxygen when sleeping. May consider BiPAP. Patient does not have sleep apnea; however, his habitus suggests otherwise. Proning encouraged * Did have A/CKD which prohibited remdesivir upfront; however, with gentle hydrationhis renal function has improved and today ribeiro day #2 of remdesivir * Continue IV Decadron * Continue mucolytic agents, antitussives as needed, and continued as needed neb treatments * Proning encouraged as patient can tolerate * Continue incentive spirometry and Acapella flutter valve * Encouraged out of bed to chair * Continue empiric antibiotic therapy (Rocephin/azithromycin) given elevated procalcitonin and possibility of secondary bacterial infection * Did have a positive D-dimer in the ED. That with his hypoxemia and CovidI felt obligated to do imaging in order to rule out PE. Unfortunately, his renal function was altered and radiology did not feel comfortable with him proceeding with CTA despite risk of contrast nephropathy being low. A VQ scan was performed that showed low probability for PE. If patient becomes tachycardic, hemodynamically unstable, or has increased oxygen needs/demandswill proceed with CTA; however, not highly suspicious of PE at this time * Continue zinc/vitamin C for immune support (2) CKD (chronic kidney disease), stage III: Plan: Patient with history of CKD II presenting with BETTE Possibly secondarty to pre- renal azotemia, patient reports poor oral intake -Creatinine clearance initially 23. Improving and 43 today -Did receive 2 L of IV fluids total. Hold off on any other added hydration given risk of volume overload with active Covid -Continue to hold nephrotoxic agents - Lisinopril -Renal dosing where needed (3) Diabetes mellitus: Plan: Blood sugars overall improved. Low 100s in the evenings. Was 211 this morning * Glimepiride and Metformin currently on hold * Based on weigh, patient should be receiving 26 units of basal insulin twice a day. since he is insulin jd, was started on 15 units. Will not adjust this * Increased dose of NPH to counteract Decadron (blood sugars in the a.m. seem to be higher) * Continue sliding scale with correction dosing (4) Hypothyroidism: Plan: Chronic -Continue Synthroid 100mcg po daily (5) Dyslipidemia: Plan: Chronic -Continue Atorvastatin 40 mg po daily (6) Hyperuricemia: Plan: Chronic -Continue Allopurinol daily - will decrease dose to 200mg po daily for renal function (7) Hypertension: Plan: Blood pressure stable -Hold Lisinopril in setting of BETTE on CKD -Montior Plan: * Plan of care to be discussed with Dr. Vasques. Further orders as warranted. * There is concerned that symptomatology may get worse around days 10 through 12; however, patient remains stable. I am hopeful that he will remain as such since he is fully vaccinated. Time will tell. Admission and Anticipated Discharge Date Admission Date: December 06, 2020 Subjective Patient seen on daily rounds today. Overall, no significant change in symptomatology. Feeling well while on supplemental oxygen. Is not getting winded or dyspneic with exertion such as toileting or eating. Did require up titration in his supplemental oxygen when sleeping last night (to 5 L). Pulse ox while on 5 L this morning is 98 to 100%. While I was in the room, I slowly down titrated his supplemental oxygen and had him down to 3 L when I left. Pulse ox was still 95-97% on 3 L. Patient is still having an intermittent cough. Denies fevers, chills, chest pain, abdominal pain, nausea or vomiting. VQ scan done yesterday as opposed to CTA given underlying history of CKD with superimposed BETTE. I wanted to proceed with a CTA knowing risk of contrast nephropathy was very low and could give patient Mucomyst and IV fluids; however, radiology department very reluctant. VQ scan done showing low probability of PE. Patient's renal function is stable. White blood cell count elevated at 18.33 today; however, patient on steroids. Blood sugars improved with up titration in his Lantus and addition of NPH to counteract Decadron. Review of Systems Review of Systems: All systems reviewed and are unremarkable except as noted in HPI and below Denies fevers, chills, headache, nasal congestion, sore throat, cough, chest pain, shortness of breath, abdominal pain, nausea, vomiting, dysuria, hematuria, frequency, skin lesions or rashes. Physical Exam Physical Exam: General: Resting comfortably in his hospital bed. Patient does not appear ill or toxic NAD. Neck: No JVD. Negative hepatojugular reflex Cardiac: RRR with 2/6 to 3/6 MARY ANN Lungs: Speaking full sentences on supplemental oxygen. No accessory muscle use. Breath sounds are diminished throughout without wheezes, rales or rhonchi. Still with positive egophony at the right base Abdomen: Normoactive X4. Soft and nontender in all quadrants. Extremities: No peripheral clubbing cyanosis or edema Neuro: A&O X4 cranial nerves II through XII are grossly intact no focal neuro deficits Skin: No obvious skin lesions or rashes Results & Data Results & Data ([facility]) Vital Signs (Past 12 Hours) Vital Signs Temp Pulse Resp BP Pulse Ox 12/08/20 08:15 36.3 C L 67 16 108/54 L 98 Laboratory Results 12/08/20 08:38 12/08/20 08:38 PG Care Time/CCT Total # of Minutes Spent Total Time Spent with Patient: Total time spent is greater than 50% in coordination of care (as documented) at patient's floor/unit and/or counseling patient: [place] [address] Subseq Hosp Care Lvl 2 Patient Type Established History Expanded Problem Focused Exam Expanded Problem Focused Medical Decision Making Moderate Complexity Diagnoses COVID-19 U07.1 CKD (chronic kidney disease), stage III N18.3 Diabetes mellitus E11.9 Hypothyroidism E03.9 Dyslipidemia E78.5 Hyperuricemia E79.0 Hypertension I10
[2020-12-09] MEDS: HEPARIN SOD 5,000 UNIT/0.5 ML VIAL SQ SCH ×3 (05:28→21:59)
[2020-12-09] MEDS: LEVOTHYROXINE SODIUM 100 MCG TABLET PO SCH (05:28)
[2020-12-09] MEDS: dexAMETHasone 6 MG in SYRINGE 0 ML IV SCH (05:28)
[2020-12-09 07:46] LABS: Eosinophils # (auto) 0.02 K/uL (0-0.5); Eosinophils % (auto) 0.2 %; Hematocrit (blood only) 42.8 % (42-52); Hemoglobin 14.3 g/dL (14.0-18.0); Immature Granulocytes # (auto) 0.03 K/uL (0.00-0.02); Immature Granulocytes % (auto) 0.2 %; Lymphocytes # (auto) 0.93 K/uL (1.2-3.4); Lymphocytes % (auto) 7.6 %; Mean Corpuscular Hemoglobin 31.8 pg (25-34); Mean Corpuscular Hgb Conc 33.4 g/dL (32-36); Mean Corpuscular Volume 95.3 fL (80-100); Mean Platelet Volume 10.2 fL (7.4-10.4); Monocytes # (auto) 0.12 K/uL (0.11-0.59); Neutrophils # (auto) 11.15 K/uL (1.4-6.5); Platelet Count 205 K/uL (130-400); RDW Coefficient of Variation 13.2 % (11.5-14.5); RDW Standard Deviation 45.9 fL (36.4-46.3); Red Blood Count 4.49 M/uL (4.7-6.1); White Blood Count 12.25 K/uL (4.8-10.8)
[2020-12-09 08:20] LABS: Albumin Level 2.5 gm/dl (3.4-5.0); C Reactive Protein 12.3 mg/dl (0-0.29); Calcium 9.1 mg/dl (8.5-10.1); Creatinine Clr Calc Pharmacy 38.3 ml/min; Est GFR (African American) 37.7 ml/min; Est GFR (Non-African American) 32.5 ml/min; Magnesium 2.6 mg/dl (1.8-2.4); Potassium 4.3 mmol/L (3.5-5.1)
[2020-12-09 08:23] LABS: Albumin Globulin Ratio 0.6 (0.9-2); Bilirubin,Total 0.3 mg/dl (0.2-1); Globulin 3.9 gm/dl (2.5-4.0); Total Protein 6.4 gm/dl (6.4-8.2)
[2020-12-09] MEDS: AZITHROMYCIN 250 MG in DEXTROSE 5% 250 ML IV SCH (08:55)
[2020-12-09] MEDS: ASPIRIN 81 MG ECTAB PO SCH (08:56)
[2020-12-09] MEDS: allopurinoL 100 MG TAB PO SCH (08:56)
[2020-12-09] MEDS: ATORVASTATIN 40 MG TAB PO SCH (08:56)
[2020-12-09] MEDS: guaiFENesin 600 MG TABCR PO SCH ×2 (08:56→22:05)
[2020-12-09] MEDS: ZINC SULFATE 220 MG CAPSULE PO SCH (08:56)
[2020-12-09] MEDS: ASCORBIC ACID 500 MG TAB PO SCH (08:57)
[2020-12-09] MEDS ORDERED: INSULIN HUMAN NPH SC SCH (09:00)
[2020-12-09] MEDS: INSULIN ASPART 100 UNITS/ML 3 ML PEN SC SCH ×4 (09:27→21:58)
[2020-12-09] MEDS: INSULIN GLARGINE SOLOSTAR 100 UNITS/ML 3 ML PEN SC SCH ×2 (09:28→21:58)
[2020-12-09] MEDS: REMDESIVIR 100 MG in SODIUM CHLORIDE 0.9% 230 ML IV SCH (11:28)
[2020-12-09] MEDS ORDERED: FUROSEMIDE 20 MG in SYRINGE 0 ML IV ONE (12:30)
[2020-12-09] MEDS: SODIUM CHLORIDE 0.9% 10ML FLUSH IV SCH (13:03)
--- NOTE | 2020-12-09 17:56 | Hospitalist Progress Note ---
Date of Service December 09, 2020 Assessment & Plan (1) COVID-19: Plan: 75yo male with history of DM, HTN, CKD-III presenting with Covid-19, hypoxia. Patient is fully vaccinated against Covid having receive both doses of Pfizer vaccine in May. He was exposed to Covid-19 presumably at a wedding 1 week ago. 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 He has been monitoring his oxygen saturation at home and reported pulse ox in th e 80s which prompted him to come to the emergency department. SpO2 of 88% on room air on arrival. Labs significant for elevated WBC count, lymphopenia, elevated Ddimer of 730, elevated Procalcitonin at 1.36. In addition, CRP 18.2/ESR 81 * Continue supplemental oxygen (to maintain goal pulse ox greater/equal to 88%). Encourage nursing staff to down titrate as he does not currently need 5 L. * Patient is requiring increased oxygen when sleeping. Add BiPAP when sleeping. Prone positioning encouraged * Did have A/CKD which prohibited remdesivir upfront; however, with gentle hydrationhis renal function has improved and today ribeiro day #3 of remdesivir * 1 dose of IV Lasix today and attempt to keep patient dry * Continue IV Decadron * Continue mucolytic agents, antitussives as needed, and continued as needed neb treatments * Proning encouraged as patient can tolerate * Continue incentive spirometry and Acapella flutter valve * Encouraged out of bed to chair * Continue empiric antibiotic therapy (Rocephin/azithromycin) given elevated procalcitonin and possibility of secondary bacterial infection (day 3-4/7 days) * Did have a positive D-dimer in the ED. That with his hypoxemia and CovidI felt obligated to do imaging in order to rule out PE. Unfortunately, his renal function was altered and radiology did not feel comfortable with him proceeding with CTA despite risk of contrast nephropathy being low. A VQ scan was performed that showed low probability for PE. If patient becomes t achycardic, hemodynamically unstable, or has increased oxygen needs/demandswill proceed with CTA; however, not highly suspicious of PE at this time * Continue zinc/vitamin C for immune support * Patient remained stable (2) CKD (chronic kidney disease), stage III: Plan: Patient with history of CKD II presenting with BETTE Possibly secondarty to pre- renal azotemia, patient reports poor oral intake -Creatinine clearance initially 23. Renal function continues to improve. Will watch closely with Lasix being provided -Did receive 2 L of IV fluids total. Hold off on any other added hydration given risk of volume overload with active Covid -Continue to hold nephrotoxic agents - Lisinopril -Renal dosing where needed (3) Leukocytosis: Plan: * likely steroid induced (4) Diabetes mellitus: Plan: Blood sugars overall improved. Low 100s in the evenings. Was 211 this morning * Glimepiride and Metformin currently on hold * Based on weigh, patient should be receiving 26 units of basal insulin twice a day. since he is insulin jd, was started on 15 units. Will increase to 22 units for tighter glycemic control * continue NPH to counteract Decadron (blood sugars in the a.m. seem to be hig her) * Continue sliding scale with correction dosing (5) Hypothyroidism: Plan: Chronic -Continue Synthroid 100mcg po daily (6) Dyslipidemia: Plan: Chronic -Continue Atorvastatin 40 mg po daily (7) Hyperuricemia: Plan: Chronic -Continue Allopurinol daily - will decrease dose to 200mg po daily for renal function (8) Hypertension: Plan: Blood pressure stable -Resume lisinopril as renal function improved Plan: * Plan of care to be discussed with Dr. Vasques. Further orders as warranted. * There is concerned that symptomatology may get worse around days 10 through 12; however, patient remains stable. I am hopeful that he will remain as such since he is fully vaccinated. Time will tell. Admission and Anticipated Discharge Date Admission Date: December 06, 2020 Subjective Patient seen on daily rounds today. Overall, voices no significant complaints or concerns. No real change in symptomatology. Breathing comfortably on supplemental oxygen. Was able to be down titrated to 3 L yesterday. Did require up titration to 5 L when sleeping. Again, there is question of underlying GISELLA (undiagnosed). Patient admits to excessive snoring. When seen earlier this morning, he was still on 5 L but this has since been down titrated back down to 3 L. Pulse ox in the mid 90s. ESR/CRP downtrending Still having coughing spells that caused him to "lose his breath" but otherwise, toileting and eating without exertional symptomatology. Denies fevers, chills, chest pain, orthopnea, PND, abdominal pain, GI/ symptomatology. Review of Systems Review of Systems: All systems reviewed and are unremarkable except as noted in HPI and below Complains of dry cough. Otherwise, denies fevers, chills, headache, nasal congestion, sore throat, chest pain, shortness of breath, abdominal pain, nausea, vomiting, dysuria, hematuria, frequency, skin lesions or rashes. Physical Exam Physical Exam: General: Resting comfortably in his hospital bed. Does not appear ill or toxic. NAD. Neck: No JVD. Negative hepatojugular reflex Cardiac: RRR without M/G/R Lungs: Speaking full sentences on supplemental oxygen. No conversational dyspnea. No accessory muscle use. Does have increased air exchange throughout with faint bibasilar crackles. Abdomen: Normoactive X4. Soft and nontender in all quadrants. Extremities: Trace pitting edema of the bilateral lower extremities Neuro: A&O X4 cranial nerves II through XII are grossly intact no focal neuro deficits Skin: No obvious skin lesions or rashes Results & Data Results & Data ([facility]) Vital Signs (Past 12 Hours) Vital Signs Temp Pulse Resp BP Pulse Ox 12/09/20 16:58 36.4 C L 57 L 18 151/74 H 94 12/09/20 11:37 94 12/09/20 08:16 36.4 C L 58 L 18 111/64 92 Laboratory Results 12/09/20 07:09 12/09/20 07:09 Total bilirubin: 0.3 AST: 32 ALT: 34 CRP: 18.2--> 17.9--> 12.3 ESR: 81--> 73 Blood sugars: 186. 201. 168. 194. 174 color television console monitor showing no evidence of bradycardia PG Care Time/CCT Total # of Minutes Spent Total Time Spent with Patient: Total time spent is greater than 50% in coordination of care (as documented) at patient's floor/unit and/or counseling patient: C[place] [address] Subseq Hosp Care Lvl 3 Patient Type Established History Detailed Exam Detailed Medical Decision Making Moderate Complexity Diagnoses COVID-19 U07.1 CKD (chronic kidney disease), stage III N18.3 Diabetes mellitus E11.9 Hypothyroidism E03.9 Dyslipidemia E78.5 Hyperuricemia E79.0 Hypertension I10 Leukocytosis D72.829
[2020-12-10] MEDS: HEPARIN SOD 5,000 UNIT/0.5 ML VIAL SQ SCH ×3 (05:19→21:54)
[2020-12-10] MEDS: dexAMETHasone 6 MG in SYRINGE 0 ML IV SCH (05:21)
[2020-12-10] MEDS: LEVOTHYROXINE SODIUM 100 MCG TABLET PO SCH (05:23)
[2020-12-10 08:15] LABS: Basophils # (auto) 0.01 K/uL (0-0.2); Basophils % (auto) 0.1 %; Eosinophils # (auto) 0.02 K/uL (0-0.5); Eosinophils % (auto) 0.2 %; Hematocrit (blood only) 42.3 % (42-52); Hemoglobin 14.4 g/dL (14.0-18.0); Immature Granulocytes # (auto) 0.04 K/uL (0.00-0.02); Immature Granulocytes % (auto) 0.3 %; Lymphocytes # (auto) 0.66 K/uL (1.2-3.4); Lymphocytes % (auto) 5.6 %; Mean Corpuscular Hemoglobin 31.9 pg (25-34); Mean Corpuscular Volume 93.6 fL (80-100); Mean Platelet Volume 10.5 fL (7.4-10.4); Monocytes # (auto) 0.47 K/uL (0.11-0.59); Neutrophils # (auto) 10.57 K/uL (1.4-6.5); Neutrophils % (auto) 89.8 %; Platelet Count 218 K/uL (130-400); RDW Coefficient of Variation 13.3 % (11.5-14.5); RDW Standard Deviation 45.5 fL (36.4-46.3); Red Blood Count 4.52 M/uL (4.7-6.1); White Blood Count 11.77 K/uL (4.8-10.8)
[2020-12-10] MEDS: ASPIRIN 81 MG ECTAB PO SCH (08:47)
[2020-12-10] MEDS: guaiFENesin 600 MG TABCR PO SCH ×2 (08:47→22:11)
[2020-12-10] MEDS: lisinopril 10 MG TAB PO SCH (08:47)
[2020-12-10] MEDS: ASCORBIC ACID 500 MG TAB PO SCH (08:47)
[2020-12-10] MEDS: ZINC SULFATE 220 MG CAPSULE PO SCH (08:47)
[2020-12-10] MEDS: allopurinoL 100 MG TAB PO SCH (08:47)
[2020-12-10] MEDS: ATORVASTATIN 40 MG TAB PO SCH (08:47)
[2020-12-10] MEDS: AZITHROMYCIN 250 MG in DEXTROSE 5% 250 ML IV SCH (08:48)
[2020-12-10 08:55] LABS: Albumin Globulin Ratio 0.6 (0.9-2); Albumin Level 2.3 gm/dl (3.4-5.0); BUN Creatinine Ratio 36.7 (10-20); Bilirubin,Total 0.3 mg/dl (0.2-1); Calcium 9.2 mg/dl (8.5-10.1); Creatinine Clr Calc Pharmacy 41.9 ml/min; Est GFR (Non-African American) 36.3 ml/min; Globulin 4.1 gm/dl (2.5-4.0); Magnesium 2.2 mg/dl (1.8-2.4); Potassium 4.2 mmol/L (3.5-5.1); Total Protein 6.4 gm/dl (6.4-8.2)
[2020-12-10] MEDS: INSULIN GLARGINE SOLOSTAR 100 UNITS/ML 3 ML PEN SC SCH ×2 (10:20→22:10)
[2020-12-10] MEDS: INSULIN ASPART 100 UNITS/ML 3 ML PEN SC SCH ×4 (10:20→22:10)
[2020-12-10] MEDS: INSULIN HUMAN NPH SC SCH (10:21)
[2020-12-10] MEDS: REMDESIVIR 100 MG in SODIUM CHLORIDE 0.9% 230 ML IV SCH (12:45)
[2020-12-10] MEDS ORDERED: FUROSEMIDE 10 MG in SYRINGE 0 ML IV ONE (13:16)
[2020-12-10] MEDS ORDERED: FUROSEMIDE 20 MG in SYRINGE 0 ML IV ONE (13:30)
[2020-12-10] MEDS: SODIUM CHLORIDE 0.9% 10ML FLUSH IV SCH (14:13)
--- NOTE | 2020-12-10 17:02 | Hospitalist Progress Note ---
Date of Service December 10, 2020 Assessment & Plan (1) COVID-19: Plan: 75yo male with history of DM, HTN, CKD-III presenting with Covid-19, hypoxia. Patient is fully vaccinated against Covid having receive both doses of Pfizer vaccine in May. He was exposed to Covid-19 presumably at a wedding 1 week ago. 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 He has been monitoring his oxygen saturation at home and reported pulse ox in th e 80s which prompted him to come to the emergency department. SpO2 of 88% on room air on arrival. * Continue supplemental oxygen (to maintain goal pulse ox greater/equal to 88%). Continue to titrate oxygen to keep pulse ox greater/equal 88%. * Patient is requiring increased oxygen when sleeping. Presumed undiagnosed GISELLA. Intolerant to BiPAP mask. Transition back to O2 * Did have A/CKD which prohibited remdesivir upfront; however, with gentle hydrationhis renal function has improved and today ribeiro day #4/5 of remdesivir * Additional dose of IV Lasix today * Continue IV Decadron * Continue mucolytic agents, antitussives as needed, and continued as needed neb treatments * Proning encouraged as patient can tolerate * Continue incentive spirometry and Acapella flutter valve * Encouraged out of bed to chair * Continue empiric antibiotic therapy (Rocephin/azithromycin) given elevated procalcitonin and possibility of secondary bacterial infection (day 4-5/7 days) * Did have a positive D-dimer in the ED. That with his hypoxemia and CovidI felt obligated to do imaging in order to rule out PE. Unfortunately, his renal function was altered and radiology did not feel comfortable with him pro ceeding with CTA despite risk of contrast nephropathy being low. A VQ scan was performed that showed low probability for PE. If patient becomes tachycardic, hemodynamically unstable, or has increased oxygen needs/demandswill proceed with CTA; however, not highly suspicious of PE at this time * Continue zinc/vitamin C for immune support * Patient remains stable * esr/crp are improving ESR: 81 -->73 CRP: 18.2 --> 17.9 --> 12.3 (2) CKD (chronic kidney disease), stage III: Plan: Patient with history of CKD II presenting with BETTE Possibly secondarty to pre- renal azotemia, patient reports poor oral intake - did receive 2L IVF upfront (renal function improved) - he was given a lasix trial yesterday and his renal function continues to improve - will given additional lasix today and watch renal function closely (3) Leukocytosis: Plan: * likely steroid induced (and downtrending) (4) Diabetes mellitus: Plan: Blood sugars overall improved and acceptable: 99 - 135 - 196 - 201 - 168 - 176 - 168 * Glimepiride and Metformin currently on hold * continue lantus/ NPH in am counteract Decadron/ and sliding scale with correction dosing (5) Hypothyroidism: Plan: Chronic -Continue Synthroid 100mcg po daily (6) Dyslipidemia: Plan: Chronic -Continue Atorvastatin 40 mg po daily (7) Hyperuricemia: Plan: Chronic -Continue Allopurinol daily - will decrease dose to 200mg po daily for renal function (8) Hypertension: Plan: Blood pressure stable -Resume lisinopril as renal function improved Plan: * Plan of care to be discussed with Dr. Vasques. Further orders as warranted. * There is concerned that symptomatology may get worse around days 10 through 12; however, patient remains stable. I am hopeful that he will remain as such since he is fully vaccinated. Time will tell. Today makes day #~9 Admission and Anticipated Discharge Date Admission Date: December 06, 2020 Subjective Patient seen on daily rounds today. Remains stable. Attempted BiPAP last night for clinical presumption of sleep apnea. Patient intolerant to the facemask. Was transitioned back to oxygen early this morning. Has been requiring around 5 L since. Pulse ox has been between 88 and 94%. Seems to drop into the high 80s after toileting but he rebounds. Despite this, he denies any shortness of breath. He vocalizes no other significant complaints or concerns. Denies fevers, chills, chest pain, shortness of breath, abdominal pain, nausea or vomiting. Did receive Lasix 20 mg IV yesterday. Tolerated this well. Creatinine patricia nues to improve. Review of Systems Review of Systems: All systems reviewed and are unremarkable except as noted in HPI and below Denies fevers, chills, headache, nasal congestion, sore throat, cough, chest p ain, shortness of breath, palpitations, orthopnea, PND, abdominal pain, nausea, vomiting, diarrhea, constipation, dysuria, hematuria, frequency, back pain, joint pain or swelling, easy bruising or blooding, skin lesions or rashes. Physical Exam Physical Exam: General: Resting comfortably in his hospital bed. Very talkative without conversational dyspnea. NAD. HEENT: Head is AT/NC buccal mucosa is moist and pink Neck: No JVD. Negative hepatojugular reflex Cardiac: RRR without M/G/R Lungs: Speaking full sentences on supplemental oxygen. No conversational dyspnea. No labored breathing. No accessory muscle use. Actually with improved air exchange . no wheezes, rales or rhonchi. Still with faint positive egophony in the right base Abdomen: Normoactive X4. Soft and nontender in all quadrants. Extremities: No peripheral clubbing cyanosis or edema Neuro: A&O X4 cranial nerves II through XII are grossly intact no focal neuro deficits Skin: No obvious skin lesions or rashes Psych: Appropriate affect pleasant and cooperative Results & Data Results & Data ([facility]) Vital Signs (Past 12 Hours) Vital Signs Temp Pulse Resp BP Pulse Ox 12/10/20 08:18 36.7 C 55 L 18 157/74 H 94 12/10/20 05:45 92 12/10/20 05:40 87 L 12/10/20 05:34 91 Laboratory Results 12/10/20 07:49 12/10/20 07:49 PG Care Time/CCT Total # of Minutes Spent Total Time Spent with Patient: Total time spent is greater than 50% in coordination of care (as documented) at patient's floor/unit and/or counseling patient: 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
[2020-12-11] MEDS: dexAMETHasone 6 MG in SYRINGE 0 ML IV SCH (06:29)
[2020-12-11] MEDS: LEVOTHYROXINE SODIUM 100 MCG TABLET PO SCH (06:29)
[2020-12-11] MEDS: HEPARIN SOD 5,000 UNIT/0.5 ML VIAL SQ SCH ×3 (06:45→21:45)
[2020-12-11 06:53] LABS: Basophils # (auto) 0.05 K/uL (0-0.2); Basophils % (auto) 0.3 %; Eosinophils # (auto) 0.03 K/uL (0-0.5); Eosinophils % (auto) 0.2 %; Hematocrit (blood only) 45.6 % (42-52); Hemoglobin 15.8 g/dL (14.0-18.0); Immature Granulocytes # (auto) 0.12 K/uL (0.00-0.02); Immature Granulocytes % (auto) 0.8 %; Lymphocytes # (auto) 0.79 K/uL (1.2-3.4); Lymphocytes % (auto) 5.4 %; Mean Corpuscular Hemoglobin 32.2 pg (25-34); Mean Corpuscular Hgb Conc 34.6 g/dL (32-36); Mean Corpuscular Volume 92.9 fL (80-100); Monocytes # (auto) 0.91 K/uL (0.11-0.59); Monocytes % (auto) 6.2 %; Neutrophils # (auto) 12.82 K/uL (1.4-6.5); Neutrophils % (auto) 87.1 %; Platelet Count 278 K/uL (130-400); RDW Coefficient of Variation 13.4 % (11.5-14.5); RDW Standard Deviation 45.4 fL (36.4-46.3); Red Blood Count 4.91 M/uL (4.7-6.1); White Blood Count 14.72 K/uL (4.8-10.8)
[2020-12-11 07:24] LABS: Albumin Level 2.5 gm/dl (3.4-5.0); BUN Creatinine Ratio 38.3 (10-20); C Reactive Protein 5.21 mg/dl (0-0.29); Calcium 9.7 mg/dl (8.5-10.1); Creatinine Clr Calc Pharmacy 43.6 ml/min; Est GFR (African American) 44.1 ml/min; Magnesium 2.4 mg/dl (1.8-2.4); Potassium 4.5 mmol/L (3.5-5.1)
[2020-12-11 07:27] LABS: Albumin Globulin Ratio 0.6 (0.9-2); Bilirubin,Total 0.4 mg/dl (0.2-1); Globulin 4.4 gm/dl (2.5-4.0); Total Protein 6.9 gm/dl (6.4-8.2)
[2020-12-11] MEDS: allopurinoL 100 MG TAB PO SCH (09:06)
[2020-12-11] MEDS: ASPIRIN 81 MG ECTAB PO SCH (09:06)
[2020-12-11] MEDS: ATORVASTATIN 40 MG TAB PO SCH (09:06)
[2020-12-11] MEDS: ASCORBIC ACID 500 MG TAB PO SCH (09:07)
[2020-12-11] MEDS: lisinopril 10 MG TAB PO SCH (09:07)
[2020-12-11] MEDS: ZINC SULFATE 220 MG CAPSULE PO SCH (09:07)
[2020-12-11] MEDS: guaiFENesin 600 MG TABCR PO SCH ×2 (09:07→21:45)
[2020-12-11] MEDS: INSULIN ASPART 100 UNITS/ML 3 ML PEN SC SCH ×4 (09:32→21:46)
[2020-12-11] MEDS: INSULIN GLARGINE SOLOSTAR 100 UNITS/ML 3 ML PEN SC SCH ×2 (09:32→21:48)
[2020-12-11] MEDS: INSULIN HUMAN NPH SC SCH (09:32)
[2020-12-11] MEDS: AZITHROMYCIN 250 MG in DEXTROSE 5% 250 ML IV SCH (09:40)
[2020-12-11] MEDS ORDERED: FUROSEMIDE 20 MG in SYRINGE 0 ML IV ONE (13:00)
[2020-12-11] MEDS: REMDESIVIR 100 MG in SODIUM CHLORIDE 0.9% 230 ML IV SCH (14:21)
[2020-12-11] MEDS: SODIUM CHLORIDE 0.9% 10ML FLUSH IV SCH (16:13)
--- NOTE | 2020-12-11 18:18 | Hospitalist Progress Note ---
Date of Service December 11, 2020 Assessment & Plan (1) COVID-19: Plan: 75yo male with history of DM, HTN, CKD-III presenting with Covid-19, hypoxia. Patient is fully vaccinated against Covid having receive both doses of Pfizer vaccine in May. He was exposed to Covid-19 presumably at a wedding 1 week ago. 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 He has been monitoring his oxygen saturation at home and reported pulse ox in th e 80s which prompted him to come to the emergency department. SpO2 of 88% on room air on arrival. * Patient is on day #11 of symptomatology * continue supplemental oxygen (to maintain goal pulse ox greater/equal to 88%). Continue to titrate oxygen to keep pulse ox greater/equal 88%. * Patient is requiring increased oxygen when sleeping. Presumed undiagnosed GISELLA. Trialed BiPAP but intolerant to mask * Did have A/CKD which prohibited remdesivir upfront; however, with gentle hydrationhis renal function has improved and today ribeiro day #5/5 of remdesivir * Additional dose of IV Lasix today (responding favorably to Lasix trials) * Continue IV Decadron * Continue mucolytic agents, antitussives as needed, and continued as needed neb treatments * Proning encouraged as patient can tolerate * Continue incentive spirometry and Acapella flutter valve * Encouraged out of bed to chair * Continue empiric antibiotic therapy (azithromycin) given elevated procalcitonin and possibility of secondary bacterial infection (day 5-6/7 days) * Did have a positive D-dimer in the ED. That with his hypoxemia and CovidI felt obligated to do imaging in order to rule out PE. Unfortunately, his renal function was altered and radiology did not feel comfortable with him proceeding with CTA despite risk of contrast nephropathy being low. A VQ scan was performed that showed low probability for PE. If patient becomes tachycardic, hemodynamically unstable, or has increased oxygen needs/demandswill proceed with CTA; however, not highly suspicious of PE at this time * Continue zinc/vitamin C for immune support * Patient remains stable * esr/crp are improving ESR: 81 -->73--> 62 CRP: 18.2 --> 17.9 --> 12.3 (2) CKD (chronic kidney disease), stage III: Plan: Patient with history of CKD II presenting with BETTE Possibly secondarty to pre- renal azotemia, patient reports poor oral intake - did receive 2L IVF upfront (renal function improved) -Tolerating Lasix trials. Renal function continues to improve - will given additional lasix today and watch renal function closely (3) Leukocytosis: Plan: * likely steroid induced (4) Diabetes mellitus: Plan: Blood sugars overall improved and acceptable: 99 - 135 - 196 - 201 - 168 - 176 - 168 * Glimepiride and Metformin currently on hold * continue lantus/ NPH in am counteract Decadron/ and sliding scale with correction dosing (5) Hypothyroidism: Plan: Chronic -Continue Synthroid 100mcg po daily (6) Dyslipidemia: Plan: Chronic -Continue Atorvastatin 40 mg po daily (7) Hyperuricemia: Plan: Chronic -Continue Allopurinol daily - will decrease dose to 200mg po daily for renal function (8) Hypertension: Plan: Blood pressure stable -Resume lisinopril as renal function improved Plan: * Plan of care to be discussed with Dr. Vasques. Further orders as warranted. * Patient seems to be rather stable. Approaching day #12 of symptomatology. * To complete remdesivir treatment today * Remains on 5 L of oxygen with continued Decadron and supportive care * , grandson, and rest of family are all now ill with Covid and he would have limited support currently Admission and Anticipated Discharge Date Admission Date: December 06, 2020 Subjective Patient seen on daily rounds today. Overall, no significant change in symptomatology (improved or worsening). Pulse ox remains stable (requiring 4 to 5 L to maintain a pulse ox in the low 90s). Does desaturate to high 80s after toileting but recovers quickly Has been responding to Lasix trials. Renal function continues to improve. Denies fevers, chills, chest pain, shortness of breath, orthopnea, PND, abdominal pain, nausea or vomiting. Review of Systems Review of Systems: All systems reviewed and are unremarkable except as noted i n HPI and below Denies fevers, chills, headache, nasal congestion, sore throat, cough, chest pain, shortness of breath, palpitations, orthopnea, PND, abdominal pain, nausea, vomiting, diarrhea, constipation, dysuria, hematuria, frequency, back pain, joint pain or swelling, easy bruising or blooding, skin lesions or rashes. Physical Exam Physical Exam: General: Resting comfortably in his hospital bed. Very talkative without conversational dyspnea. NAD. HEENT: Head is AT/NC buccal mucosa is moist and pink Neck: No JVD. Negative hepatojugular reflex Cardiac: RRR without M/G/R Lungs: Speaking full sentences on supplemental oxygen. No conversational dyspnea. No labored breathing. No accessory muscle use. Actually with improved air exchange . no wheezes, rales or rhonchi. Negative egophony today Abdomen: Normoactive X4. Soft and nontender in all quadrants. Extremities: No peripheral clubbing cyanosis or edema Neuro: A&O X4 cranial nerves II through XII are grossly intact no focal neuro deficits Skin: No obvious skin lesions or rashes Psych: Appropriate affect pleasant and cooperative Results & Data Results & Data ([facility]) Vital Signs (Past 12 Hours) Vital Signs Temp Pulse Resp BP BP Pulse Ox 12/11/20 17:11 36.4 C L 66 16 131/79 89 L 12/11/20 08:36 36.4 C L 58 L 16 137/77 92 Laboratory Results 12/11/20 06:43 12/11/20 06:43 PG Care Time/CCT Total # of Minutes Spent Total Time Spent with Patient: Total time spent is greater than 50% in coordination of care (as documented) at patient's floor/unit and/or counseling patient: C[place] [address] Subseq Hosp Care Lvl 3 Patient Type Established History Detailed Exam Detailed Medical Decision Making Moderate Complexity Diagnoses COVID-19 U07.1 CKD (chronic kidney disease), stage III N18.3 Leukocytosis D72.829 Diabetes mellitus E11.9 Hypothyroidism E03.9 Dyslipidemia E78.5 Hyperuricemia E79.0 Hypertension I10
[2020-12-12] MEDS: HEPARIN SOD 5,000 UNIT/0.5 ML VIAL SQ SCH (06:09)
[2020-12-12] MEDS: dexAMETHasone 6 MG in SYRINGE 0 ML IV SCH (06:10)
[2020-12-12] MEDS: LEVOTHYROXINE SODIUM 100 MCG TABLET PO SCH (06:10)
[2020-12-12 06:41] LABS: Hematocrit (blood only) 46.2 % (42-52); Hemoglobin 15.9 g/dL (14.0-18.0); Mean Corpuscular Hemoglobin 32.3 pg (25-34); Mean Corpuscular Hgb Conc 34.4 g/dL (32-36); Mean Corpuscular Volume 93.9 fL (80-100); Mean Platelet Volume 10.5 fL (7.4-10.4); Platelet Count 301 K/uL (130-400); RDW Coefficient of Variation 13.6 % (11.5-14.5); RDW Standard Deviation 46.2 fL (36.4-46.3); Red Blood Count 4.92 M/uL (4.7-6.1); White Blood Count 16.16 K/uL (4.8-10.8)
[2020-12-12 07:09] LABS: Basophils # (auto) 0.03 K/uL (0-0.2); Basophils % (auto) 0.2 %; Eosinophils # (auto) 0.05 K/uL (0-0.5); Eosinophils % (auto) 0.3 %; Immature Granulocytes # (auto) 0.24 K/uL (0.00-0.02); Immature Granulocytes % (auto) 1.5 %; Lymphocytes # (auto) 1.32 K/uL (1.2-3.4); Lymphocytes % (auto) 8.2 %; Monocytes # (auto) 1.02 K/uL (0.11-0.59); Monocytes % (auto) 6.3 %; Neutrophils % (auto) 83.5 %
[2020-12-12 07:15] LABS: Albumin Globulin Ratio 0.6 (0.9-2); Albumin Level 2.5 gm/dl (3.4-5.0); BUN Creatinine Ratio 37.2 (10-20); Bilirubin,Total 0.4 mg/dl (0.2-1); Calcium 9.2 mg/dl (8.5-10.1); Creatinine Clr Calc Pharmacy 44.1 ml/min; Est GFR (African American) 44.7 ml/min; Est GFR (Non-African American) 38.6 ml/min; Magnesium 2.2 mg/dl (1.8-2.4); Potassium 4.3 mmol/L (3.5-5.1); Total Protein 6.5 gm/dl (6.4-8.2)
[2020-12-12] MEDS ORDERED: ALBUT/IPRATROP 3MG/0.5MG NEB 3 ML VIAL NEB STA (09:06)
--- NOTE | 2020-12-12 09:59 | Hospitalist Progress Note ---
Date of Service December 12, 2020 Assessment & Plan (1) COVID-19: Plan: 75yo male with history of DM, HTN, CKD-III presenting with Covid-19, hypoxia. Patient is fully vaccinated against Covid having receive both doses of Pfizer vaccine in May. He was exposed to Covid-19 presumably at a wedding 1 week ago. 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 He has been monitoring his oxygen saturation at home and reported pulse ox in th e 80s which prompted him to come to the emergency department. SpO2 of 88% on room air on arrival. * Patient is on day #12 of symptomatology * continue supplemental oxygen (to maintain goal pulse ox greater/equal to 88%). tirate Oxymask (to high flow if needed) to maintain a pulse Ox >/=88% * Patient has been requiring increased oxygen when sleeping. Presumed undiagnosed GISELLA. Trialed BiPAP but intolerant to mask * Did have A/CKD which prohibited remdesivir upfront; however, with gentle hydrationhis renal function has improved he did complete a full course of remdesivir * Additional dose of IV Lasix today (responding favorably to Lasix trials) * Day #7 of decadron. With slight change in status and increased oxygen needs-- given an additional 6mg of decadron today and increase to 10mg starting tomorrow * Continue mucolytic agents, antitussives as needed, and continued as needed neb treatments * Proning encouraged as patient can tolerate * Continue incentive spirometry and Acapella flutter valve * Encouraged out of bed to chair * Continue empiric antibiotic therapy (azithromycin) given elevated procalcitonin and possibility of secondary bacterial infection (day 6-7/7 days) * Did have a positive D-dimer in the ED. That with his hypoxemia and CovidI felt obligated to do imaging in order to rule out PE. Unfortunately, his renal function was altered and radiology did not feel comfortable with him proceeding with CTA despite risk of contrast nephropathy being low. A VQ scan was performed that showed low probability for PE. For now, will change prophylactic heparin to treatment dose lovenox. Repeat CXR done showing no significant change. consider CTA to r/o underlying PE * Continue zinc/vitamin C for immune support * Patient remains stable * esr/crp are improving. Repeat ESR and CRP to trend ESR: 81 -->73--> 62--> 49 CRP: 18.2 --> 17.9 --> 12.3--> 3.11 (2) CKD (chronic kidney disease), stage III: Plan: Patient with history of CKD II presenting with BETET Possibly secondarty to pre- renal azotemia, patient reported poor oral intake upfron -did receive 2L IVF upfront (renal function improved) -good oral intake at present -Tolerating Lasix trials. Renal function continues to improve - will given additional lasix today and watch renal function closely (3) Leukocytosis: Plan: * likely steroid induced. Has been on empiric abx therapy for secondary bacterial infection. * repeat CXR done today showing no significant change or worsening in infiltrates (4) Diabetes mellitus: Plan: Blood sugars overall improved and acceptable: * Glimepiride and Metformin currently on hold * continue lantus/ NPH in am counteract Decadron/ and sliding scale with correction dosing * may need additional insulin coverage with increase in steroids (5) Hypothyroidism: Plan: Chronic -Continue Synthroid 100mcg po daily (6) Dyslipidemia: Plan: Chronic -Continue Atorvastatin 40 mg po daily (7) Hyperuricemia: Plan: Chronic -Continue Allopurinol daily - will decrease dose to 200mg po daily for renal function (8) Hypertension: Plan: Blood pressure stable -lisinopril held upfront with A/CKD but with improvement in renal function, lisinopril has been resumed Plan: * Plan of care discussed with and patient seen along side Dr. Vasques Further orders as warranted. Admission and Anticipated Discharge Date Admission Date: December 06, 2020 Subjective PAtient seen on daily rounds today. OVerall, he denies feeling overly SOB; however, upon entry into the room, his pulse ox was in the 70's (74-77%) on 5L supplemental O2. He had mild conversational dyspnea but overall did not look overly dyspnea, his breathing was nonlabored and he had no accessory muscle use. Using the Dinamap (as I wasn't certain if this was accurate)-- This was reading 84-88%. Admits that he just used the bathroom and finished shaving. Denies taking his O2 off to do this. Otherwise, "had a good night". Was on 5L and tolerated proning. I checked all of his Oxygen tubing connections and all was well. Turned his oxygen up to 10L and rang for the nurse to bring appropriate equipment to transition to high flow. In addition, RT notified to administer a neb treatments. With transition to oxymask (10L) and a duoneb treatment-- patient's oxygen responded (90-95%). With all of this, he didn't feel overly SOB. No tachycardia. Review of Systems Review of Systems: All systems reviewed and are unremarkable except as noted in HPI and below Denies fevers, chills, headache, nasal congestion, sore throat, cough, chest pain, shortness of breath, palpitations, orthopnea, PND, abdominal pain, nausea, vomiting, diarrhea, constipation, dysuria, hematuria, frequency, back pain, joint pain or swelling, easy bruising or blooding, skin lesions or rashes. Physical Exam Physical Exam: General: Resting comfortably in hospital bed. Speaking long and full sentences and in NAD. Breathing nonlabored (even with low sats into the 70- 80's). No accessory muscle use. HEENT: Head is AT/NC buccal mucosa is moist and pink Neck: No JVD. Negative hepatojugular reflex Cardiac: RRR but distant Lungs:speaking full sentences. no accessory muscle use. Initially with end expiratory wheezes at the bases but after neb treatment-- no W/R/R with increased air exchange. Abdomen: Normoactive X4. Soft and nontender in all quadrants. Extremities: No peripheral clubbing cyanosis or edema Neuro: A&O X4 cranial nerves II through XII are grossly intact no focal neuro deficits Skin: No obvious skin lesions or rashes Psych: Appropriate affect pleasant and cooperative Results & Data Results & Data ([facility]) Vital Signs (Past 12 Hours) Vital Signs Pulse Resp Pulse Ox 12/12/20 09:18 52 L 20 98 Laboratory Results 12/12/20 06:15 12/12/20 06:15 CRP: 3.11 ESR: 49 Diagnostic Findings CXR: IMPRESSION: Slight increase in bibasilar opacities and interstitial thickening. The findings favor an infectious process. PG Care Time/CCT Total # of Minutes Spent Total Time Spent with Patient: Total time spent is greater than 50% in coordination of care (as documented) at patient's floor/unit and/or counseling patient: [place] [address] Subseq Hosp Care Lvl 3 Patient Type Established History Comprehensive Exam Comprehensive Medical Decision Making High Complexity Diagnoses COVID-19 U07.1 CKD (chronic kidney disease), stage III N18.3 Leukocytosis D72.829 Diabetes mellitus E11.9 Hypothyroidism E03.9 Dyslipidemia E78.5 Hyperuricemia E79.0 Hypertension I10
[2020-12-12] MEDS ORDERED: dexAMETHasone 10 MG in SYRINGE 0 ML IV SCH (10:06)
[2020-12-12] MEDS ORDERED: ENOXAPARIN 100 MG/1ML SYR SQ SCH (10:06)
[2020-12-12] MEDS ORDERED: FUROSEMIDE 40 MG/4 ML VIAL IV ONE (10:06)
[2020-12-12] MEDS ORDERED: FUROSEMIDE 20 MG in SYRINGE 0 ML IV ONE (10:06)
--- NOTE | 2020-12-12 10:37 | XRay Report ---
XR chest 1V portable CLINICAL HISTORY: hypoxemia COMPARISON STUDY: Chest CT November 04, 2019. Chest radiograph December 06, 2020. FINDINGS: Lung volumes are normal. There is no pneumothorax or pleural effusion. Subtle bibasilar opa cities and interstitial thickening or greater within the left lung. These have slightly increased. Ca rdiomediastinal silhouette is stable. IMPRESSION: Slight increase in bibasilar opacities and interstitial thickening. The findings favor a n infectious process. ACT 112: Negative or not required by law. Electronically signed by: Shashank Morrison M.D. 12/12/2020 10:36 AM
[2020-12-12] MEDS: ZINC SULFATE 220 MG CAPSULE PO SCH (10:51)
[2020-12-12] MEDS: AZITHROMYCIN 250 MG TAB PO SCH (10:51)
[2020-12-12] MEDS: guaiFENesin 600 MG TABCR PO SCH ×2 (10:51→21:21)
[2020-12-12] MEDS: ASPIRIN 81 MG ECTAB PO SCH (10:51)
[2020-12-12] MEDS: ATORVASTATIN 40 MG TAB PO SCH (10:52)
[2020-12-12] MEDS: lisinopril 10 MG TAB PO SCH (10:52)
[2020-12-12] MEDS: allopurinoL 100 MG TAB PO SCH (10:52)
[2020-12-12] MEDS: ASCORBIC ACID 500 MG TAB PO SCH (10:53)
[2020-12-12] MEDS: INSULIN ASPART 100 UNITS/ML 3 ML PEN SC SCH ×4 (10:58→21:00)
[2020-12-12] MEDS: INSULIN GLARGINE SOLOSTAR 100 UNITS/ML 3 ML PEN SC SCH ×2 (11:00→22:50)
[2020-12-12] MEDS ORDERED: dexAMETHasone 6 MG in SYRINGE 0 ML IV SCH (12:00)
[2020-12-12] MEDS: ENOXAPARIN 100 MG/1ML SYR SQ SCH ×2 (12:47→21:24)
[2020-12-12] MEDS: INSULIN HUMAN NPH SC SCH (14:58)
[2020-12-12] MEDS ORDERED: LORazepam 0.5 MG TAB PO STA (15:08)
[2020-12-12 16:48] LABS: Allen Test Pos (Pos); Base Excess ABG -1.2 mEq/L (-9-1.8); HCO3 ABG 22 mmol/L (19-24); Oxygen Saturation ABG 98.4 % (90-95); PCO2 ABG 33 mmHg (35-46); PO2 ABG 116 mmHg (80-95); pH ABG 7.44 (7.35-7.45)
[2020-12-13] MEDS: LEVOTHYROXINE SODIUM 100 MCG TABLET PO SCH (06:14)
[2020-12-13] MEDS: ALBUTEROL HFA 8 GM INHALER INH PRN (07:24)
[2020-12-13 07:29] LABS: Basophils # (auto) 0.02 K/uL (0-0.2); Basophils % (auto) 0.1 %; Eosinophils # (auto) 0.01 K/uL (0-0.5); Eosinophils % (auto) 0.1 %; Hematocrit (blood only) 47.7 % (42-52); Hemoglobin 16.2 g/dL (14.0-18.0); Immature Granulocytes # (auto) 0.27 K/uL (0.00-0.02); Immature Granulocytes % (auto) 1.7 %; Lymphocytes # (auto) 0.77 K/uL (1.2-3.4); Lymphocytes % (auto) 4.8 %; Mean Corpuscular Hemoglobin 32.1 pg (25-34); Mean Corpuscular Volume 94.6 fL (80-100); Mean Platelet Volume 10.3 fL (7.4-10.4); Monocytes # (auto) 0.77 K/uL (0.11-0.59); Monocytes % (auto) 4.8 %; Neutrophils # (auto) 14.05 K/uL (1.4-6.5); Neutrophils % (auto) 88.5 %; Platelet Count 310 K/uL (130-400); RDW Coefficient of Variation 13.5 % (11.5-14.5); RDW Standard Deviation 46.9 fL (36.4-46.3); Red Blood Count 5.04 M/uL (4.7-6.1); White Blood Count 15.89 K/uL (4.8-10.8)
[2020-12-13 07:47] LABS: Albumin Level 2.2 gm/dl (3.4-5.0); BUN Creatinine Ratio 41.1 (10-20); Calcium 9.3 mg/dl (8.5-10.1); Creatinine Clr Calc Pharmacy 44.6 ml/min; Est GFR (African American) 45.4 ml/min; Est GFR (Non-African American) 39.1 ml/min; Magnesium 2.2 mg/dl (1.8-2.4); Potassium 4.3 mmol/L (3.5-5.1)
[2020-12-13] MEDS: dexAMETHasone 10 MG in SYRINGE 0 ML IV SCH (07:48)
[2020-12-13 07:49] LABS: Albumin Globulin Ratio 0.5 (0.9-2); Bilirubin,Total 0.6 mg/dl (0.2-1); Globulin 4.5 gm/dl (2.5-4.0); Total Protein 6.7 gm/dl (6.4-8.2)
[2020-12-13] MEDS: INSULIN GLARGINE SOLOSTAR 100 UNITS/ML 3 ML PEN SC SCH ×2 (07:49→20:35)
[2020-12-13] MEDS: INSULIN HUMAN NPH SC SCH (07:50)
[2020-12-13] MEDS: ENOXAPARIN 100 MG/1ML SYR SQ SCH (07:51)
[2020-12-13] MEDS: lisinopril 10 MG TAB PO SCH (07:53)
[2020-12-13] MEDS: allopurinoL 100 MG TAB PO SCH (07:53)
[2020-12-13] MEDS: AZITHROMYCIN 250 MG TAB PO SCH (07:53)
[2020-12-13] MEDS: ZINC SULFATE 220 MG CAPSULE PO SCH (07:54)
[2020-12-13] MEDS: ATORVASTATIN 40 MG TAB PO SCH (07:54)
[2020-12-13] MEDS: ASPIRIN 81 MG ECTAB PO SCH (07:55)
[2020-12-13] MEDS: ASCORBIC ACID 500 MG TAB PO SCH (07:55)
[2020-12-13] MEDS: guaiFENesin 600 MG TABCR PO SCH ×2 (07:56→20:25)
[2020-12-13] MEDS ORDERED: FUROSEMIDE 20 MG in SYRINGE 0 ML IV ONE (08:21)
[2020-12-13] MEDS ORDERED: FUROSEMIDE 40 MG/4 ML VIAL IV ONE (08:30)
[2020-12-13] MEDS: INSULIN ASPART 100 UNITS/ML 3 ML PEN SC SCH ×4 (08:42→20:34)
--- NOTE | 2020-12-13 08:42 | Hospitalist Progress Note ---
Date of Service December 13, 2020 Assessment & Plan (1) COVID-19: Plan: 75yo male with history of DM, HTN, CKD-III presenting with Covid-19, hypoxia 88% on RA in ED. 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 alkalosis (low suspicion for PE)-- however, now on therapeutic lovenox until stable enough for CTA. Suspect all Covid (7.44/33/116/22) subsequent event occurred after toileting (wetting himself and tried cleaning the floor)-- sats dropped needing Vapotherm 80%/35L--> refusing zeng catheter doing well and HFNC titrated to 30L and 45% currently good air exchange continue decadron, day #8 completed Remdesivir- 5 days completed full course of empiric abx therapy (rocephin/azithromycin) CRP and ESR downtrending CRP: 18.2 - 17.9 - 12.3 - 5.21 - 3.11 ESR: 81 - 73 - 62 - 49 not candidate for Tocilizumab (CRP downtrending and outside of window to give from symptoms onset) continue supportive care (2) CKD (chronic kidney disease), stage III: Plan: Patient with history of CKD II presenting with BETTE Possibly secondarty to pre- renal azotemia, patient reported poor oral intake upfron did receive 2L IVF upfront (NV/D upfront with poor oral intake) renal function improved and close to baseline (1.6). Tolerating lasix trial good oral intake at present will given additional lasix today and watch renal function closely BUN uptrending-- likely steroid but benefit given current respiratory status outweighs risk (3) Leukocytosis: Plan: likely steroid induced. completed full course of abx therapy repeat CXR done showing no significant change or worsening in infiltrates (4) Diabetes mellitus: Plan: Blood sugars overall improved and acceptable: Glimepiride and Metformin currently on hold continue lantus/ NPH in am counteract Decadron/ and sliding scale with correction dosing may need additional insulin coverage with increase in steroids (5) Hypothyroidism: Plan: Chronic -Continue Synthroid 100mcg po daily (6) Dyslipidemia: Plan: Chronic -Continue Atorvastatin 40 mg po daily (7) Hyperuricemia: Plan: Chronic -Continue Allopurinol daily - will decrease dose to 200mg po daily for renal function (8) Hypertension: Plan: Blood pressure stable - lisinopril initially held with A/CKD. - was then resumed with improved renal function - hold lisinopril given marginal hypotension (100's/50's) and uptrending BUN Plan: * Plan of care to be discussed with Dr. Vasques Further orders as warranted. * patient continues to NOT want /family notified or updated. Admission and Anticipated Discharge Date Admission Date: December 06, 2020 Supervising Physician Co-Signing Physician Notes patient seen and examined in separate visit doing better than yesterday, requiring less high flow, FiO2 down to 65% he has great lung compliance, can pull 2000-2500mL on incentive spirometer he is compliant with laying prone eating well, making a lot of urine - COVID 19 pneumonia with acute hypoxic respiratory failure continue dexamethasone, try to wean off high flow prone during the day and night Lasix to keep lungs dry Subjective Patient seen on daily rounds today. On 80% FIO@/35L when I left lastnight. slowly titrated throughout the night-- now on 30L and 45%. Pulse ox 89-91% Although telling us daily that he "feels better" reports today is "the first day that he ACTUALLY does" Asking to have hepatitis C screening Otherwise, no F/C, CP, SOB, abd pain, N/V, D/C. Tolerating proning. Nursing voices no c/c. Review of Systems Review of Systems: All systems reviewed and are unremarkable except as noted in HPI and below Denies fevers, chills, headache, nasal congestion, sore throat, cough, chest pain, shortness of breath, palpitations, orthopnea, PND, abdominal pain, nausea, vomiting, diarrhea, constipation, dysuria, hematuria, frequency, back pain, joint pain or swelling, easy bruising or blooding, skin lesions or rashes. Physical Exam Physical Exam: General: Resting comfortably in his hospital bed. NAD. HEENT: Head is AT/NC buccal mucosa is moist and pink Neck: No JVD. Negative hepatojugular reflex Cardiac: RRR but distant Lungs: Speaking full sentences on HFNC. No conversational dyspnea. No accessory muscle use. Breathing is nonlabored. Good air exchange throughout. No W/R/R. Negative egophony throughout. Abdomen: Normoactive X4. Soft and nontender in all quadrants. Extremities: No peripheral clubbing cyanosis or edema Neuro: A&O X4 cranial nerves II through XII are grossly intact no focal neuro deficits Skin: No obvious skin lesions or rashes Psych: Appropriate affect pleasant and cooperative Results & Data Results & Data ([facility]) Vital Signs (Past 12 Hours) Vital Signs Temp Pulse Pulse Resp BP Pulse Ox 12/13/20 07:24 63 24 89 L 12/13/20 07:07 36.7 C 63 18 105/61 91 12/13/20 04:51 36.5 C 57 L 20 136/77 90 12/13/20 03:15 59 L 24 98 12/12/20 23:15 71 22 90 12/12/20 23:10 36.8 C 80 22 111/59 L 90 12/12/20 23:09 36.9 C 75 25 H 137/75 92 Laboratory Results 12/13/20 07:14 12/13/20 07:14 PG Care Time/CCT Total # of Minutes Spent Total Time Spent with Patient: Total time spent is greater than 50% in coordination of care (as documented) at patient's floor/unit and/or counseling patient: Coding [place] [address] Subseq Hosp Care Lvl 3 Patient Type Established Medical Decision Making High Complexity Diagnoses COVID-19 U07.1 CKD (chronic kidney disease), stage III N18.3 Leukocytosis D72.829 Diabetes mellitus E11.9 Hypothyroidism E03.9 Dyslipidemia E78.5 Hyperuricemia E79.0 Hypertension I10
[2020-12-13] MEDS: ENOXAPARIN INJ 40 MG/0.4 ML SYR SQ SCH (20:24)
[2020-12-14] MEDS: LEVOTHYROXINE SODIUM 100 MCG TABLET PO SCH (05:30)
[2020-12-14 07:01] LABS: Basophils # (auto) 0.01 K/uL (0-0.2); Basophils % (auto) 0.1 %; Eosinophils # (auto) 0.01 K/uL (0-0.5); Eosinophils % (auto) 0.1 %; Hematocrit (blood only) 43.8 % (42-52); Hemoglobin 14.7 g/dL (14.0-18.0); Immature Granulocytes # (auto) 0.18 K/uL (0.00-0.02); Immature Granulocytes % (auto) 1.4 %; Lymphocytes # (auto) 0.64 K/uL (1.2-3.4); Lymphocytes % (auto) 4.8 %; Mean Corpuscular Hemoglobin 31.8 pg (25-34); Mean Corpuscular Hgb Conc 33.6 g/dL (32-36); Mean Corpuscular Volume 94.8 fL (80-100); Mean Platelet Volume 10.5 fL (7.4-10.4); Monocytes # (auto) 0.51 K/uL (0.11-0.59); Monocytes % (auto) 3.8 %; Neutrophils # (auto) 11.94 K/uL (1.4-6.5); Neutrophils % (auto) 89.8 %; Platelet Count 288 K/uL (130-400); RDW Coefficient of Variation 13.7 % (11.5-14.5); RDW Standard Deviation 47.6 fL (36.4-46.3); Red Blood Count 4.62 M/uL (4.7-6.1); White Blood Count 13.29 K/uL (4.8-10.8)
[2020-12-14 07:35] LABS: Albumin Level 2.2 gm/dl (3.4-5.0); Calcium 8.9 mg/dl (8.5-10.1); Creatinine Clr Calc Pharmacy 43.1 ml/min; Est GFR (African American) 43.5 ml/min; Est GFR (Non-African American) 37.5 ml/min; Potassium 4.3 mmol/L (3.5-5.1)
[2020-12-14 07:44] LABS: Albumin Globulin Ratio 0.6 (0.9-2); Bilirubin,Total 0.6 mg/dl (0.2-1); Globulin 3.6 gm/dl (2.5-4.0); Total Protein 5.8 gm/dl (6.4-8.2)
[2020-12-14] MEDS: CARBOHYDRATES FOR HYPOGLYCEMIA PO PRN (07:50)
[2020-12-14] MEDS: guaiFENesin 600 MG TABCR PO SCH ×2 (07:52→20:17)
[2020-12-14] MEDS: ENOXAPARIN INJ 40 MG/0.4 ML SYR SQ SCH ×2 (07:52→20:18)
[2020-12-14] MEDS: ASCORBIC ACID 500 MG TAB PO SCH (07:53)
[2020-12-14] MEDS: ASPIRIN 81 MG ECTAB PO SCH (07:54)
[2020-12-14] MEDS: allopurinoL 100 MG TAB PO SCH (07:54)
[2020-12-14] MEDS: ZINC SULFATE 220 MG CAPSULE PO SCH (07:54)
[2020-12-14] MEDS: ATORVASTATIN 40 MG TAB PO SCH (07:54)
[2020-12-14] MEDS: dexAMETHasone 10 MG in SYRINGE 0 ML IV SCH (07:55)
[2020-12-14] MEDS: INSULIN HUMAN NPH SC SCH (09:25)
[2020-12-14] MEDS: INSULIN ASPART 100 UNITS/ML 3 ML PEN SC SCH ×4 (09:26→21:20)
[2020-12-14] MEDS: INSULIN GLARGINE SOLOSTAR 100 UNITS/ML 3 ML PEN SC SCH ×2 (09:26→21:22)
[2020-12-14] MEDS ORDERED: FUROSEMIDE 20 MG in SYRINGE 0 ML IV ONE (09:46)
[2020-12-14] MEDS ORDERED: FUROSEMIDE 40 MG/4 ML VIAL IV ONE (10:00)
[2020-12-14] MEDS: OXYMETAZOLINE 0.05% 30 ML BTL PRN (10:43)
--- NOTE | 2020-12-14 12:43 | Hospitalist Progress Note ---
Date of Service December 14, 2020 Assessment & Plan (1) COVID-19: Plan: 75yo male with history of DM, HTN, CKD-III presenting with Covid-19, hypoxia 88% on RA in ED. 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 , grandson, kids also tested positive Initially requiring 3L O2 [place] hospital day #2-3, needing 5L but was stable 12/12 (days #12 of viral course)--> Acute hypoxemic respiratory failure (sats 70-80's)-- needed 10L oxymask for sats to recover Now improved and weaned down to 7-8 L oxygen mask on 12/14 completed 5 days Remdesivir on 12/12 given addition 6mg of decadron and subsequently increased to 10mg daily-now on day 8 has been receiving lasix trials all along and renal function tolerating this- give another Lasix 20 mg IV x1 today Repeat CXR showing no significant change from admission ABG done showing mild respir. alkalosis (low suspicion for PE) completed full course of empiric abx therapy (rocephin/azithromycin) CRP and ESR downtrending CRP: 18.2 - 17.9 - 12.3 - 5.21 - 3.11 ESR: 81 - 73 - 62 - 49 not candidate for Tocilizumab (CRP downtrending and outside of window to give from symptoms onset) continue supportive care -Continue flutter valve and incentive spirometry, proning or side sleeping as able to (2) CKD (chronic kidney disease), stage III: Plan: Patient with history of CKD II presenting with BETTE Possibly secondarty to pre- renal azotemia, patient reported poor oral intake upfron did receive 2L IVF upfront (NV/D upfront with poor oral intake) renal function improved and close to baseline (1.7). Continue Lasix daily to keep in net negative fluid balance good oral intake at present BUN uptrending-- likely steroid but benefit given current respiratory status outweighs risk Follow BMP Avoid nephrotoxins Renally dose medications (3) Leukocytosis: Plan: likely steroid induced. completed full course of abx therapy repeat CXR done showing no significant change or worsening in infiltrates Is afebrile Improved (4) Diabetes mellitus: Plan: Glimepiride and Metformin currently on hold Now with hypoglycemia this morning Decrease NPH to 15 units daily Decrease Lantus down to 15 units twice daily Adjusted NovoLog sliding scale to make range lowered to 100-150, and decreased correction factor and carb ratio to account for Premeal hyperglycemia (5) Hypothyroidism: Plan: Chronic, TSH normal earlier in 2020 -Continue Synthroid 100mcg po daily (6) Dyslipidemia: Plan: Chronic -Continue Atorvastatin 40 mg po daily (7) Hyperuricemia: Plan: Chronic -Continue Allopurinol daily - decreased dose to 200mg po daily for renal func tion (8) Hypertension: Plan: Blood pressure acceptable - lisinopril initially held with A/CKD. - was then resumed with improved renal function -Continue to hold lisinopril given marginal hypotension (100's/50's) and while diuresing Plan: DVT prophylaxis-Lovenox 40 mg SQ twice daily Disposition-continued stay on telemetry status, improving. Patient reports that he is okay now with his family receiving updates if needed for a change in status-no need to call them today Admission and Anticipated Discharge Date Admission Date: December 06, 2020 Subjective Feels like he is improving today, still some cough with sputum production. Denies chest pain or shortness of breath. He is weaned down to 8 L via wall high flow nasal cannula when I saw him but was able to be weaned to 7 L when placed on an oxygen mask. He has some nasal congestion. His appetite is improving. He is moving his bowels and denies diarrhea. Telemetry with normal sinus rhythm and PVCs with rates in the 50s to 80s Review of Systems Review of Systems: All systems reviewed & are unremarkable except as noted in HPI & below Physical Exam Constitutional: WD/WN, vitals as above Eyes: + anicteric sclerae Neck: trachea midline, no thyromegaly Respiratory: normal respiratory effort Auscultation: + crackles (Lower lung garcia bilaterally); no rhonchi and no wheezes Cardiovascular: RRR, no murmur, no edema Chest (Breasts): Chest: normal inspection of chest Gastrointestinal (Abdomen): normal bowel sounds, soft, nontender, no hepatosplenomegaly Musculoskeletal: Extremities: extremities normal to inspection; no cyanosis and no clubbing Skin: no rashes, warm and dry Neurologic: moves all extremities and awake; no focal motor deficits Psychiatric: A+Ox3, euthymic affect Lymphatic: no lymphedema Results & Data Results & Data ([facility]) Vital Signs (Past 12 Hours) Vital Signs Temp Pulse Pulse Resp BP BP Pulse Ox 12/14/20 11:17 36.9 C 69 22 153/79 H 92 12/14/20 07:59 102 H 20 92 12/14/20 07:31 36.7 C 61 25 H 127/53 L 91 12/14/20 04:25 36.6 C 60 18 114/55 L 93 12/14/20 02:51 62 18 95 Laboratory Results 12/14/20 12/14/20 12/14/20 Range/Units 16:32 11:44 08:11 WBC (4.8-10.8) K/uL RBC (4.7-6.1) M/uL Hgb (14.0-18.0) g/dL Hct (42-52) % MCV (80-100) fL MCH (25-34) pg MCHC (32-36) g/dL RDW Std Deviation (36.4-46.3) fL RDW Coeff of Donna (11.5-14.5) % Plt Count (130-400) K/uL MPV (7.4-10.4) fL Immature Gran % (Auto) % Neut % (Auto) % Lymph % (Auto) % [place] % (Auto) % Eos % (Auto) % Baso % (Auto) % Neut # (Auto) (1.4-6.5) K/uL Lymph # (Auto) (1.2-3.4) K/uL [place] # (Auto) (0.11-0.59) K/uL Eos # (Auto) (0-0.5) K/uL Baso # (Auto) (0-0.2) K/uL Immature Gran # (Auto) (0.00-0.02) K/uL Sodium (136-145) mmol/L Potassium (3.5-5.1) mmol/L Chloride (98-107) mmol/L Carbon Dioxide (21-32) mmol/L Anion Gap (3-11) BUN (7-18) mg/dl Creatinine (0.6-1.4) mg/dl Est Cr Clr Drug Dosing ml/min Est GFR ( Amer) ml/min Est GFR (Non-Af Amer) ml/min BUN/Creatinine Ratio (10-20) Glucose (70-99) mg/dl POC Glucose 179 H 161 H 76 (70-99) mg/dl Calcium (8.5-10.1) mg/dl Total Bilirubin (0.2-1) mg/dl AST (15-37) U/L ALT (12-78) U/L Alkaline Phosphatase (45-117) U/L Total Protein (6.4-8.2) gm/dl Albumin (3.4-5.0) gm/dl Globulin (2.5-4.0) gm/dl Albumin/Globulin Ratio (0.9-2) Hepatitis C Ab Screen (Neg) 12/14/20 12/14/20 12/14/20 Range/Units 07:47 07:29 07:28 WBC (4.8-10.8) K/uL RBC (4.7-6.1) M/uL Hgb (14.0-18.0) g/dL Hct (42-52) % MCV (80-100) fL MCH (25-34) pg MCHC (32-36) g/dL RDW Std Deviation (36.4-46.3) fL RDW Coeff of Donna (11.5-14.5) % Plt Count (130-400) K/uL MPV (7.4-10.4) fL Immature Gran % (Auto) % Neut % (Auto) % Lymph % (Auto) % [place] % (Auto) % Eos % (Auto) % Baso % (Auto) % Neut # (Auto) (1.4-6.5) K/uL Lymph # (Auto) (1.2-3.4) K/uL [place] # (Auto) (0.11-0.59) K/uL Eos # (Auto) (0-0.5) K/uL Baso # (Auto) (0-0.2) K/uL Immature Gran # (Auto) (0.00-0.02) K/uL Sodium (136-145) mmol/L Potassium (3.5-5.1) mmol/L Chloride (98-107) mmol/L Carbon Dioxide (21-32) mmol/L Anion Gap (3-11) BUN (7-18) mg/dl Creatinine (0.6-1.4) mg/dl Est Cr Clr Drug Dosing ml/min Est GFR ( Amer) ml/min Est GFR (Non-Af Amer) ml/min BUN/Creatinine Ratio (10-20) Glucose (70-99) mg/dl POC Glucose 62 L* 62 L* 61 L* (70-99) mg/dl Calcium (8.5-10.1) mg/dl Total Bilirubin (0.2-1) mg/dl AST (15-37) U/L ALT (12-78) U/L Alkaline Phosphatase (45-117) U/L Total Protein (6.4-8.2) gm/dl Albumin (3.4-5.0) gm/dl Globulin (2.5-4.0) gm/dl Albumin/Globulin Ratio (0.9-2) Hepatitis C Ab Screen (Neg) 12/14/20 12/14/20 12/14/20 Range/Units 06:06 06:06 06:06 WBC 13.29 H (4.8-10.8) K/uL RBC 4.62 L (4.7-6.1) M/uL Hgb 14.7 (14.0-18.0) g/dL Hct 43.8 (42-52) % MCV 94.8 (80-100) fL MCH 31.8 (25-34) pg MCHC 33.6 (32-36) g/dL RDW Std Deviation 47.6 H (36.4-46.3) fL RDW Coeff of Donna 13.7 (11.5-14.5) % Plt Count 288 (130-400) K/uL MPV 10.5 H (7.4-10.4) fL Immature Gran % (Auto) 1.4 % Neut % (Auto) 89.8 % Lymph % (Auto) 4.8 % [place] % (Auto) 3.8 % Eos % (Auto) 0.1 % Baso % (Auto) 0.1 % Neut # (Auto) 11.94 H (1.4-6.5) K/uL Lymph # (Auto) 0.64 L (1.2-3.4) K/uL [place] # (Auto) 0.51 (0.11-0.59) K/uL Eos # (Auto) 0.01 (0-0.5) K/uL Baso # (Auto) 0.01 (0-0.2) K/uL Immature Gran # (Auto) 0.18 H (0.00-0.02) K/uL Sodium 141 (136-145) mmol/L Potassium 4.3 (3.5-5.1) mmol/L Chloride 110 H (98-107) mmol/L Carbon Dioxide 22 (21-32) mmol/L Anion Gap 9.0 (3-11) BUN 75 H (7-18) mg/dl Creatinine 1.74 H (0.6-1.4) mg/dl Est Cr Clr Drug Dosing 43.1 ml/min Est GFR ( Amer) 43.5 ml/min Est GFR (Non-Af Amer) 37.5 ml/min BUN/Creatinine Ratio 43.0 H (10-20) Glucose 66 L (70-99) mg/dl POC Glucose (70-99) mg/dl Calcium 8.9 (8.5-10.1) mg/dl Total Bilirubin 0.6 (0.2-1) mg/dl AST 19 (15-37) U/L ALT 26 (12-78) U/L Alkaline Phosphatase 79 (45-117) U/L Total Protein 5.8 L (6.4-8.2) gm/dl Albumin 2.2 L (3.4-5.0) gm/dl Globulin 3.6 (2.5-4.0) gm/dl Albumin/Globulin Ratio 0.6 L (0.9-2) Hepatitis C Ab Screen Neg (Neg) 12/13/20 Range/Units 20:08 WBC (4.8-10.8) K/uL RBC (4.7-6.1) M/uL Hgb (14.0-18.0) g/dL Hct (42-52) % MCV (80-100) fL MCH (25-34) pg MCHC (32-36) g/dL RDW Std Deviation (36.4-46.3) fL RDW Coeff of Donna (11.5-14.5) % Plt Count (130-400) K/uL MPV (7.4-10.4) fL Immature Gran % (Auto) % Neut % (Auto) % Lymph % (Auto) % [place] % (Auto) % Eos % (Auto) % Baso % (Auto) % Neut # (Auto) (1.4-6.5) K/uL Lymph # (Auto) (1.2-3.4) K/uL [place] # (Auto) (0.11-0.59) K/uL Eos # (Auto) (0-0.5) K/uL Baso # (Auto) (0-0.2) K/uL Immature Gran # (Auto) (0.00-0.02) K/uL Sodium (136-145) mmol/L Potassium (3.5-5.1) mmol/L Chloride (98-107) mmol/L Carbon Dioxide (21-32) mmol/L Anion Gap (3-11) BUN (7-18) mg/dl Creatinine (0.6-1.4) mg/dl Est Cr Clr Drug Dosing ml/min Est GFR ( Amer) ml/min Est GFR (Non-Af Amer) ml/min BUN/Creatinine Ratio (10-20) Glucose (70-99) mg/dl POC Glucose 143 H (70-99) mg/dl Calcium (8.5-10.1) mg/dl Total Bilirubin (0.2-1) mg/dl AST (15-37) U/L ALT (12-78) U/L Alkaline Phosphatase (45-117) U/L Total Protein (6.4-8.2) gm/dl Albumin (3.4-5.0) gm/dl Globulin (2.5-4.0) gm/dl Albumin/Globulin Ratio (0.9-2) Hepatitis C Ab Screen (Neg) PG Care Time/CCT Total # of Minutes Spent Total Time Spent with Patient: Total time spent is greater than 50% in coordination of care (as documented) at patient's floor/unit and/or counseling patient: Coding Level of Care Code 54641 Subseq Hosp Care Lvl 3 Diagnoses COVID-19 U07.1 CKD (chronic kidney disease), stage III N18.3 Leukocytosis D72.829 Diabetes mellitus E11.9 Hypothyroidism E03.9 Dyslipidemia E78.5 Hyperuricemia E79.0 Hypertension I10
[2020-12-15] MEDS: LEVOTHYROXINE SODIUM 100 MCG TABLET PO SCH (06:04)
[2020-12-15 06:47] LABS: Calcium 8.7 mg/dl (8.5-10.1); Creatinine Clr Calc Pharmacy 44.1 ml/min; Est GFR (African American) 44.7 ml/min; Est GFR (Non-African American) 38.6 ml/min; Magnesium 2.5 mg/dl (1.8-2.4); Potassium 4.9 mmol/L (3.5-5.1)
[2020-12-15] MEDS: INSULIN ASPART 100 UNITS/ML 3 ML PEN SC SCH ×4 (08:00→21:05)
[2020-12-15] MEDS: CARBOHYDRATES FOR HYPOGLYCEMIA PO PRN (08:07)
[2020-12-15] MEDS: dexAMETHasone 10 MG in SYRINGE 0 ML IV SCH (08:12)
[2020-12-15] MEDS: ASCORBIC ACID 500 MG TAB PO SCH (08:13)
[2020-12-15] MEDS: ATORVASTATIN 40 MG TAB PO SCH (08:13)
[2020-12-15] MEDS: ZINC SULFATE 220 MG CAPSULE PO SCH (08:13)
[2020-12-15] MEDS: allopurinoL 100 MG TAB PO SCH (08:13)
[2020-12-15] MEDS: ASPIRIN 81 MG ECTAB PO SCH (08:13)
[2020-12-15] MEDS: ENOXAPARIN INJ 40 MG/0.4 ML SYR SQ SCH ×2 (08:14→20:16)
[2020-12-15] MEDS ORDERED: INSULIN HUMAN NPH SC SCH (09:15)
[2020-12-15] MEDS: INSULIN GLARGINE SOLOSTAR 100 UNITS/ML 3 ML PEN SC SCH ×3 (09:16→21:08)
[2020-12-15] MEDS: INSULIN HUMAN NPH SC SCH (09:17)
[2020-12-15] MEDS: guaiFENesin 600 MG TABCR PO SCH ×2 (09:34→20:16)
--- NOTE | 2020-12-15 16:09 | Hospitalist Progress Note ---
Date of Service December 15, 2020 Assessment & Plan (1) COVID-19: Plan: 75yo male with history of DM, HTN, CKD-III presenting with Covid-19, hypoxia 88% on RA in ED. 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 alkalosis (low suspicion for PE) completed full course of empiric abx therapy (rocephin/azithromycin) CRP and ESR downtrending CRP: 18.2 - 17.9 - 12.3 - 5.21 - 3.11 ESR: 81 - 73 - 62 - 49 not candidate for Tocilizumab (CRP downtrending and outside of window to give from symptoms onset) continue supportive care -Continue flutter valve and incentive spirometry, proning or side sleeping as able to (2) CKD (chronic kidney disease), stage III: Plan: Patient with history of CKD II presenting with BETTE Possibly secondary to pre- renal azotemia, patient reported poor oral intake upfront did receive 2L IVF upfront (NV/D upfront with poor oral intake) renal function improved and close to baseline (1.7). Continue Lasix daily to keep in net negative fluid balance good oral intake at present Follow BMP Avoid nephrotoxins Renally dose medications (3) Leukocytosis: Plan: likely steroid induced. completed full course of abx therapy repeat CXR done showing no significant change or worsening in infiltrates Is afebrile Improved (4) Diabetes mellitus: Plan: Glimepiride and Metformin currently on hold Now with hypoglycemia again today Decrease NPH to 8 units daily for today and then stop as dexamethasone last day is today Decrease Lantus down to 10 units twice daily Adjusted NovoLog sliding scale to decrease correction factor and carb ratio (5) Hypothyroidism: Plan: Chronic, TSH normal earlier in 2020 -Continue Synthroid 100mcg po daily (6) Dyslipidemia: Plan: Chronic -Continue Atorvastatin 40 mg po daily (7) Hyperuricemia: Plan: Chronic -Continue Allopurinol daily - decreased dose to 200mg po daily for renal function (8) Hypertension: Plan: Blood pressure acceptable - lisinopril initially held with A/CKD. - was then resumed with improved renal function -Continue to hold lisinopril given marginal hypotension (100's/50's) and while diuresing Plan: DVT prophylaxis-Lovenox 40 mg SQ twice daily, and pt definitely interested in taking Xarelto 10mg daily x 35 days after discharge Disposition-continued stay on telemetry status, improving. Admission and Anticipated Discharge Date Admission Date: December 06, 2020 Subjective Pt feeling a little better. is weaned down to 7L OxyMask, still with some productive cough. Appetite is good, is drinking and eating, no diarrhea. Had some hypoglycemia this AM and wants me to know he has not been eating the crusts on his sandwiches and wonders if his carbs are not being counted correctly. Tele with NSR, rates 50-70s Review of Systems Review of Systems: All systems reviewed & are unremarkable except as noted in HPI & below Physical Exam Constitutional: WD/WN, vitals as above Eyes: + anicteric sclerae Neck: trachea midline, no thyromegaly Respiratory: normal respiratory effort Auscultation: + crackles (Lower lung garcia bilaterally); no rhonchi and no wheezes Cardiovascular: RRR, no murmur, no edema Chest (Breasts): Chest: normal inspection of chest Gastrointestinal (Abdomen): normal bowel sounds, soft, nontender, no hepatosplenomegaly Musculoskeletal: Extremities: extremities normal to inspection; no cyanosis and no clubbing Skin: no rashes, warm and dry Neurologic: moves all extremities and awake; no focal motor deficits Psychiatric: A+Ox3, euthymic affect Lymphatic: no lymphedema Results & Data Results & Data ([facility]) Vital Signs (Past 12 Hours) Vital Signs Temp Pulse Pulse Resp BP Pulse Ox 12/15/20 16:00 36.9 C 67 19 131/61 90 12/15/20 11:48 36.6 C 66 20 108/76 96 12/15/20 11:45 36.6 C 20 112/73 12/15/20 08:00 61 12/15/20 07:19 36.9 C 54 L 18 114/55 L 98 Laboratory Results 12/14/20 06:06 12/15/20 05:57 PG Care Time/CCT Total # of Minutes Spent Total Time Spent with Patient: Total time spent is greater than 50% in coordination of care (as documented) at patient's floor/unit and/or counseling patient: Coding Level of Care Code 65834 Subseq Hosp Care Lvl 3 Diagnoses COVID-19 U07.1 CKD (chronic kidney disease), stage III N18.3 Leukocytosis D72.829 Diabetes mellitus E11.9 Hypothyroidism E03.9 Dyslipidemia E78.5 Hyperuricemia E79.0 Hypertension I10
[2020-12-16] MEDS: LEVOTHYROXINE SODIUM 100 MCG TABLET PO SCH (05:23)
[2020-12-16] MEDS: INSULIN ASPART 100 UNITS/ML 3 ML PEN SC SCH ×4 (08:00→21:06)
[2020-12-16] MEDS: INSULIN GLARGINE SOLOSTAR 100 UNITS/ML 3 ML PEN SC SCH (08:00)
[2020-12-16] MEDS: ZINC SULFATE 220 MG CAPSULE PO SCH (08:51)
[2020-12-16] MEDS: ENOXAPARIN INJ 40 MG/0.4 ML SYR SQ SCH ×2 (08:51→21:05)
[2020-12-16] MEDS: ASCORBIC ACID 500 MG TAB PO SCH (08:51)
[2020-12-16] MEDS: ATORVASTATIN 40 MG TAB PO SCH (08:51)
[2020-12-16] MEDS: allopurinoL 100 MG TAB PO SCH (08:51)
[2020-12-16] MEDS: ASPIRIN 81 MG ECTAB PO SCH (08:51)
[2020-12-16] MEDS: guaiFENesin 600 MG TABCR PO SCH ×2 (08:52→21:05)
[2020-12-16] MEDS ORDERED: FUROSEMIDE 20 MG in SYRINGE 0 ML IV ONE (16:53)
--- NOTE | 2020-12-16 16:53 | Hospitalist Progress Note ---
Date of Service December 16, 2020 Assessment & Plan (1) COVID-19: Plan: 75yo male with history of DM, HTN, CKD-III presenting with Covid-19, hypoxia 88% on RA in ED. 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 , grandson, kids also tested positive Initially requiring 3L O2 [place] hospital day #2-3, needing 5L but was stable 12/12 (days #12 of viral course)--> Acute hypoxemic respiratory failure (sats 70-80's)-- needed 10L oxymask for sats to recover Was continuing to improve, and was weaned down to 7 L oxygen mask on 12/15, however on 12/16 he was having epistaxis which then caused difficulty breathing through his nose and had to be placed back on oxygen mask at 10 L to recover Continue to wean down supplemental O2 as needed, keep oxygen mask in place, use nasal saline and Afrin as needed for epistaxis. Can use nasal cannula when eating -Completed 5 days Remdesivir on 12/12 -Completed 10 days of dexamethasone -Has been receiving lasix daily prn to keep negative fluid balance-we will give another 20 mg IV today -Repeat CXR showing no significant change from admission -Completed full course of empiric abx therapy (rocephin/azithromycin) CRP and ESR downtrending CRP: 18.2 - 17.9 - 12.3 - 5.21 - 3.11 ESR: 81 - 73 - 62 - 49 not candidate for Tocilizumab (CRP downtrending and outside of window to give from symptoms onset) -Continue supportive care -Continue flutter valve and incentive spirometry, proning or side sleeping as able to Long recovery, but I do expect that eventually he will improve Gave encouragement today (2) CKD (chronic kidney disease), stage III: Plan: Patient with history of CKD II presenting with BETTE Possibly secondary to pre- renal azotemia, patient reported poor oral intake upfront did receive 2L IVF upfront (NV/D upfront with poor oral intake) renal function improved and close to baseline (1.7). Continue Lasix daily to keep in net negative fluid balance-giving a dose today on 12/16 good oral intake at present Follow BMP Avoid nephrotoxins Renally dose medications (3) Leukocytosis: Plan: likely steroid induced. completed full course of abx therapy repeat CXR done showing no significant change or worsening in infiltrates Is afebrile Improved (4) Diabetes mellitus: Plan: Glimepiride and Metformin currently on hold Developed hypoglycemia for couple of days and insulin doses were decreased Dexamethasone course is now complete Will further reduce Lantus down to 12 units once daily Continue NovoLog sliding scale at current dosing regimen (5) Hypothyroidism: Plan: Chronic, TSH normal earlier in 2020 -Continue Synthroid 100mcg po daily (6) Dyslipidemia: Plan: Chronic -Continue Atorvastatin 40 mg po daily (7) Hyperuricemia: Plan: Chronic -Continue Allopurinol daily - decreased dose to 200mg po daily for renal function (8) Hypertension: Plan: Blood pressure acceptable - lisinopril initially held with A/CKD. - was then resumed with improved renal function -Continue to hold lisinopril given marginal hypotension (100's/50's) and while diuresing (9) Epistaxis: Plan: Secondary to nasal cannula supplemental oxygen drying out the nasal passages Advised saline nasal spray to be added on frequently throughout the day to moisturize the nose Afrin as needed for nosebleeds Advised oxygen mask rather than nasal cannula as he is having difficulty breathing through the nostrils since the epistaxis Plan: DVT prophylaxis-Lovenox 40 mg SQ twice daily, and pt definitely interested in taking Xarelto 10mg daily x 35 days after discharge Disposition-continued stay on telemetry status, expect at least 4-5 more days of hospitalization Admission and Anticipated Discharge Date Admission Date: December 06, 2020 Subjective Patient reports having a bloody nose from the right nostril this morning and since that time, has had trouble keeping his oxygen levels up with nasal cannula in place. He feels there is still clots blocking his nose. When I sat him up to listen to his lungs he desatted to 81% and I could not get him to come up to greater than 88% until we put him on a full facemask and turned him up to 10 L for several minutes. He did not feel short of breath at all with this. He is still having somewhat of a cough. Appetite is good and he feels well otherwise. Telemetry with normal sinus rhythm and PVCs with rates in the 70s. Review of Systems Review of Systems: All systems reviewed & are unremarkable except as noted in HPI & below Physical Exam Constitutional: WD/WN, vitals as above Eyes: + anicteric sclerae ENMT: Nose: + nasal mucous membrane abnormality (Scant dried blood inside the right nare) Neck: trachea midline, no thyromegaly Respiratory: normal respiratory effort Auscultation: + crackles (Lower lung garcia bilaterally); no rhonchi and no wheezes Cardiovascular: RRR, no murmur, no edema Chest (Breasts): Chest: normal inspection of chest Gastrointestinal (Abdomen): normal bowel sounds, soft, nontender, no hepatosplenomegaly Musculoskeletal: Extremities: extremities normal to inspection; no cyanosis and no clubbing Skin: no rashes, warm and dry Neurologic: moves all extremities and awake; no focal motor deficits Psychiatric: A+Ox3, euthymic affect Results & Data Results & Data ([facility]) Vital Signs (Past 12 Hours) Vital Signs Temp Pulse Pulse Resp BP Pulse Ox 12/16/20 16:51 94 12/16/20 15:30 36.8 C 77 22 136/59 L 93 12/16/20 15:26 66 12/16/20 11:19 36.9 C 73 17 123/69 94 12/16/20 08:00 61 12/16/20 07:18 36.7 C 62 20 133/61 94 PG Care Time/CCT Total # of Minutes Spent Total Time Spent with Patient: Total time spent is greater than 50% in coordination of care (as documented) at patient's floor/unit and/or counseling patient: Coding Level of Care Code 70812 Subseq Hosp Care Lvl 3 Diagnoses COVID-19 U07.1 CKD (chronic kidney disease), stage III N18.3 Leukocytosis D72.829 Diabetes mellitus E11.9 Hypothyroidism E03.9 Dyslipidemia E78.5 Hyperuricemia E79.0 Hypertension I10 Epistaxis R04.0
[2020-12-16] MEDS ORDERED: FUROSEMIDE 40 MG/4 ML VIAL IV ONE ×2 (17:15→20:30)
[2020-12-17] MEDS: LEVOTHYROXINE SODIUM 100 MCG TABLET PO SCH (06:04)
[2020-12-17 06:59] LABS: BUN Creatinine Ratio 41.1 (10-20); Calcium 8.3 mg/dl (8.5-10.1); Creatinine Clr Calc Pharmacy 47.8 ml/min; Est GFR (African American) 49.2 ml/min; Est GFR (Non-African American) 42.5 ml/min; Magnesium 2.2 mg/dl (1.8-2.4); Potassium 4.7 mmol/L (3.5-5.1)
[2020-12-17] MEDS: INSULIN ASPART 100 UNITS/ML 3 ML PEN SC SCH ×4 (08:00→20:28)
[2020-12-17] MEDS ORDERED: FUROSEMIDE 40 MG in SYRINGE 0 ML IV ONE (08:06)
[2020-12-17] MEDS ORDERED: ALBUT/IPRATROP 3MG/0.5MG NEB 3 ML VIAL NEB PRN (08:12)
[2020-12-17] MEDS ORDERED: FUROSEMIDE 40 MG/4 ML VIAL IV ONE (08:15)
--- NOTE | 2020-12-17 08:44 | XRay Report ---
XR chest 1V portable CLINICAL HISTORY: worsening hypoxia COMPARISON STUDY: Chest radiograph December 12, 2020. FINDINGS: Lung volumes are normal. There is no pneumothorax or definite pleural effusion. Mild cardio megaly is unchanged. No evidence for pulmonary edema. Moderate bilateral lower lung opacities have pr ogressed since exam December 12, 2020. IMPRESSION: Progression of moderate bilateral lower lung airspace opacities which favor an infectiou s process. Radiographic follow-up to ensure resolution is recommended. ACT 112: Negative or not required by law. Electronically signed by: Shashank Morrison M.D. 12/17/2020 8:43 AM
[2020-12-17] MEDS: ALBUT/IPRATROP 3MG/0.5MG NEB 3 ML VIAL NEB SCH ×4 (08:52→20:00)
[2020-12-17] MEDS ORDERED: INSULIN GLARGINE SOLOSTAR 100 UNITS/ML 3 ML PEN SC SCH (09:00)
[2020-12-17] MEDS: ASCORBIC ACID 500 MG TAB PO SCH (09:23)
[2020-12-17] MEDS: ENOXAPARIN INJ 40 MG/0.4 ML SYR SQ SCH ×2 (09:23→20:50)
[2020-12-17] MEDS: allopurinoL 100 MG TAB PO SCH (09:23)
[2020-12-17] MEDS: ATORVASTATIN 40 MG TAB PO SCH (09:23)
[2020-12-17] MEDS: ZINC SULFATE 220 MG CAPSULE PO SCH (09:23)
[2020-12-17] MEDS: guaiFENesin 600 MG TABCR PO SCH ×2 (09:23→20:50)
[2020-12-17] MEDS: ASPIRIN 81 MG ECTAB PO SCH (09:23)
[2020-12-17] MEDS: OXYMETAZOLINE 0.05% 30 ML BTL PRN (09:24)
[2020-12-17] MEDS: CARBOHYDRATES FOR HYPOGLYCEMIA PO PRN ×2 (16:21→16:45)
--- NOTE | 2020-12-17 22:23 | Hospitalist Progress Note ---
Date of Service December 17, 2020 Assessment & Plan (1) COVID-19: Plan: 75yo male with history of DM, HTN, CKD-III presenting with Covid-19, hypoxia 88% on RA in ED. Patient is fully vaccinated against Covid (Pfizer-May) exposed to Covid-19 at a wedding [address] [employer], Symptoms onset 12/02/11 Initially requiring 3L O2 [place] hospital day #2-3, needing 5L but was stable 12/12 (days #12 of viral course)--> Acute hypoxemic respiratory failure (sats 70-80's)-- needed 10L oxymask for sats to recover Was continuing to improve, and was weaned down to 7 L oxygen mask on 12/15, however on 12/16 he was having epistaxis which then caused difficulty breathing through his nose and had to be placed back on oxygen mask at 10 L to recover On 12/17 was requiring 15 L oxygen mask to keep pulse ox greater than 88% and was placed on high flow nasal cannula at 40 L and 85% FiO2-seems improved Chest x-ray on 12/17 with progressed bilateral infiltrates Continue to wean down supplemental O2 as needed, keep oxygen mask in place, use nasal saline and Afrin as needed for epistaxis. -Completed 5 days Remdesivir on 12/12 -Completed 10 days of dexamethasone -Has been receiving lasix daily prn to keep negative fluid balance-we will give another 40 mg IV today -Repeat CXR showing no significant change from admission -Completed full course of empiric abx therapy (rocephin/azithromycin) CRP and ESR downtrending CRP: 18.2 - 17.9 - 12.3 - 5.21 - 3.11 ESR: 81 - 73 - 62 - 49 not candidate for Tocilizumab (CRP downtrending and outside of window to give from symptoms onset) -Continue supportive care -Continue flutter valve and incentive spirometry, proning or side sleeping as able to Long recovery, but I do expect that eventually he will improve Gave encouragement today (2) CKD (chronic kidney disease), stage III: Plan: Patient with history of CKD II presenting with BETTE Possibly secondary to pre- renal azotemia, patient reported poor oral intake upfront did receive 2L IVF upfront (NV/D upfront with poor oral intake) renal function improved from baseline (1.7). Continue Lasix daily to keep in net negative fluid balance-given another dose today good oral intake at present Follow BMP Avoid nephrotoxins Renally dose medications (3) Leukocytosis: Plan: likely steroid induced. completed full course of abx therapy Is afebrile Improved (4) Diabetes mellitus: Plan: Glimepiride and Metformin currently on hold Developed hypoglycemia for couple of days and insulin doses were decreased Dexamethasone course is now complete With hypoglycemia again in the afternoon of 12/17 Will further reduce Lantus down to 8 units once daily Continue NovoLog sliding scale and increase correction factor up to 30 and change carb ratio to 1-15 (5) Hypothyroidism: Plan: Chronic, TSH normal earlier in 2020 -Continue Synthroid 100mcg po daily (6) Dyslipidemia: Plan: Chronic -Continue Atorvastatin 40 mg po daily (7) Hyperuricemia: Plan: Chronic -Continue Allopurinol daily - decreased dose to 200mg po daily for renal function (8) Hypertension: Plan: Blood pressure acceptable - lisinopril initially held with A/CKD. - was then resumed with improved renal function -Continue to hold lisinopril given marginal hypotension (100's/50's) and while diuresing (9) Epistaxis: Plan: Secondary to nasal cannula supplemental oxygen drying out the nasal passages Advised saline nasal spray to be added on frequently throughout the day to moisturize the nose Afrin as needed for nosebleeds Plan: DVT prophylaxis-Lovenox 40 mg SQ twice daily, and pt definitely interested in taking Xarelto 10mg daily x 35 days after discharge Disposition-continued stay on telemetry status, expect at least 4-5 more days of hospitalization Admission and Anticipated Discharge Date Admission Date: December 06, 2020 Subjective Patient was having trouble keeping pulse ox above 89% on 15 L oxygen mask this morning. He was switched to high flow nasal cannula and feels much improved ever since then. Is also been using the nasal saline. He feels this is the most rest he is got in a long time and feels improved. Telemetry with normal sinus rhythm and PVCs, rates in the 70s. He is making plenty of urine Review of Systems Review of Systems: All systems reviewed & are unremarkable except as noted in HPI & below No further epistaxis Physical Exam Constitutional: WD/WN, vitals as above Eyes: + anicteric sclerae Neck: trachea midline, no thyromegaly Respiratory: normal respiratory effort Auscultation: + crackles (Lower lung garcia bilaterally); no rhonchi and no wheezes Cardiovascular: RRR, no murmur, no edema Chest (Breasts): Chest: normal inspection of chest Gastrointestinal (Abdomen): normal bowel sounds, soft, nontender, no hepatosplenomegaly Musculoskeletal: Extremities: extremities normal to inspection; no cyanosis and no clubbing Skin: no rashes, warm and dry Neurologic: moves all extremities and awake; no focal motor deficits Psychiatric: A+Ox3, euthymic affect Lymphatic: no lymphedema Results & Data Results & Data ([facility]) Vital Signs (Past 12 Hours) Vital Signs Temp Pulse Pulse Resp BP BP Pulse Ox 12/17/20 20:00 22 88 L 12/17/20 19:40 36.0 C L 85 22 124/73 91 12/17/20 15:58 37.6 C 74 16 120/53 L 95 12/17/20 15:20 69 23 90 12/17/20 14:00 77 12/17/20 12:08 36.8 C 78 20 130/70 88 L 12/17/20 10:59 81 26 H 93 Laboratory Results 12/17/20 12/17/20 12/17/20 Range/Units 20:00 17:00 16:41 Sodium (136-145) mmol/L Potassium (3.5-5.1) mmol/L Chloride (98-107) mmol/L Carbon Dioxide (21-32) mmol/L Anion Gap (3-11) BUN (7-18) mg/dl Creatinine (0.6-1.4) mg/dl Est Cr Clr Drug Dosing ml/min Est GFR ( Amer) ml/min Est GFR (Non-Af Amer) ml/min BUN/Creatinine Ratio (10-20) Glucose (70-99) mg/dl POC Glucose 148 H 82 65 L* (70-99) mg/dl Calcium (8.5-10.1) mg/dl Magnesium (1.8-2.4) mg/dl 12/17/20 12/17/20 12/17/20 Range/Units 16:21 16:20 12:08 Sodium (136-145) mmol/L Potassium (3.5-5.1) mmol/L Chloride (98-107) mmol/L Carbon Dioxide (21-32) mmol/L Anion Gap (3-11) BUN (7-18) mg/dl Creatinine (0.6-1.4) mg/dl Est Cr Clr Drug Dosing ml/min Est GFR ( Amer) ml/min Est GFR (Non-Af Amer) ml/min BUN/Creatinine Ratio (10-20) Glucose (70-99) mg/dl POC Glucose 66 L* 63 L* 97 (70-99) mg/dl Calcium (8.5-10.1) mg/dl Magnesium (1.8-2.4) mg/dl 12/17/20 12/17/20 Range/Units 08:14 05:57 Sodium 139 (136-145) mmol/L Potassium 4.7 (3.5-5.1) mmol/L Chloride 109 H (98-107) mmol/L Carbon Dioxide 23 (21-32) mmol/L Anion Gap 7.0 (3-11) BUN 64 H (7-18) mg/dl Creatinine 1.57 H (0.6-1.4) mg/dl Est Cr Clr Drug Dosing 47.8 ml/min Est GFR ( Amer) 49.2 ml/min Est GFR (Non-Af Amer) 42.5 ml/min BUN/Creatinine Ratio 41.1 H (10-20) Glucose 91 (70-99) mg/dl POC Glucose 82 (70-99) mg/dl Calcium 8.3 L (8.5-10.1) mg/dl Magnesium 2.2 (1.8-2.4) mg/dl PG Care Time/CCT Total # of Minutes Spent Total Time Spent with Patient: Total time spent is greater than 50% in coordination of care (as documented) at patient's floor/unit and/or counseling patient: Coding Level of Care Code 66575 Subseq Hosp Care Lvl 3 Diagnoses COVID-19 U07.1 CKD (chronic kidney disease), stage III N18.3 Leukocytosis D72.829 Diabetes mellitus E11.9 Hypothyroidism E03.9 Dyslipidemia E78.5 Hyperuricemia E79.0 Hypertension I10 Epistaxis R04.0
[2020-12-18] MEDS: LEVOTHYROXINE SODIUM 100 MCG TABLET PO SCH (06:06)
[2020-12-18 07:27] LABS: Basophils # (auto) 0.01 K/uL (0-0.2); Basophils % (auto) 0.1 %; Eosinophils # (auto) 0.96 K/uL (0-0.5); Eosinophils % (auto) 6.5 %; Hematocrit (blood only) 42.7 % (42-52); Hemoglobin 14.5 g/dL (14.0-18.0); Immature Granulocytes # (auto) 0.08 K/uL (0.00-0.02); Immature Granulocytes % (auto) 0.5 %; Lymphocytes # (auto) 0.85 K/uL (1.2-3.4); Lymphocytes % (auto) 5.8 %; Mean Corpuscular Hemoglobin 31.9 pg (25-34); Mean Corpuscular Volume 93.8 fL (80-100); Mean Platelet Volume 10.6 fL (7.4-10.4); Monocytes # (auto) 0.21 K/uL (0.11-0.59); Monocytes % (auto) 1.4 %; Neutrophils # (auto) 12.55 K/uL (1.4-6.5); Neutrophils % (auto) 85.7 %; Platelet Count 202 K/uL (130-400); RDW Coefficient of Variation 13.7 % (11.5-14.5); RDW Standard Deviation 47.1 fL (36.4-46.3); Red Blood Count 4.55 M/uL (4.7-6.1); White Blood Count 14.66 K/uL (4.8-10.8)
[2020-12-18] MEDS: ALBUT/IPRATROP 3MG/0.5MG NEB 3 ML VIAL NEB SCH ×4 (07:31→19:40)
[2020-12-18 07:53] LABS: BUN Creatinine Ratio 33.7 (10-20); C Reactive Protein 14.9 mg/dl (0-0.29); Calcium 8.5 mg/dl (8.5-10.1); Creatinine Clr Calc Pharmacy 47.7 ml/min; Est GFR (African American) 49.6 ml/min; Est GFR (Non-African American) 42.8 ml/min; Magnesium 1.9 mg/dl (1.8-2.4); Potassium 4.3 mmol/L (3.5-5.1)
[2020-12-18] MEDS: INSULIN ASPART 100 UNITS/ML 3 ML PEN SC SCH ×4 (08:50→22:09)
[2020-12-18] MEDS: INSULIN GLARGINE SOLOSTAR 100 UNITS/ML 3 ML PEN SC SCH (08:50)
[2020-12-18] MEDS ORDERED: FUROSEMIDE 40 MG in SYRINGE 0 ML IV ONE (09:27)
[2020-12-18] MEDS ORDERED: FUROSEMIDE 40 MG/4 ML VIAL IV ONE (09:45)
[2020-12-18] MEDS: guaiFENesin 600 MG TABCR PO SCH ×3 (09:52→21:56)
[2020-12-18] MEDS: allopurinoL 100 MG TAB PO SCH ×2 (09:52→11:04)
[2020-12-18] MEDS: ASCORBIC ACID 500 MG TAB PO SCH ×2 (09:52→11:04)
[2020-12-18] MEDS: ATORVASTATIN 40 MG TAB PO SCH ×2 (09:52→11:03)
[2020-12-18] MEDS: ENOXAPARIN INJ 40 MG/0.4 ML SYR SQ SCH ×2 (09:53→21:57)
[2020-12-18] MEDS: ASPIRIN 81 MG ECTAB PO SCH ×2 (09:53→11:03)
[2020-12-18] MEDS: ZINC SULFATE 220 MG CAPSULE PO SCH ×2 (09:53→11:04)
[2020-12-18] MEDS: OXYMETAZOLINE 0.05% 30 ML BTL PRN (13:03)
--- NOTE | 2020-12-18 15:48 | Hospitalist Progress Note ---
Date of Service December 18, 2020 Assessment & Plan (1) COVID-19: Plan: 75yo male with history of DM, HTN, CKD-III presenting with Covid-19, hypoxia 88% on RA in ED. Patient is fully vaccinated against Covid (Pfizer-May) exposed to Covid-19 at a wedding 1 week [employer], Symptoms onset 12/02/11 not candidate for Tocilizumab (CRP downtrending and outside of window to give from symptoms onset) Initially requiring 3L O2 [place] hospital day #2-3, needing 5L but was stable 12/12 (days #12 of viral course)--> Acute hypoxemic respiratory failure (sats 70-80's)-- needed 10L oxymask for sats to recover Was continuing to improve, and was weaned down to 7 L oxygen mask on 12/15, however on 12/16 he was having epistaxis which then caused difficulty breathing through his nose and had to be placed back on oxygen mask at 10 L to recover On 12/17 was requiring 15 L oxygen mask to keep pulse ox greater than 88% and was placed on high flow nasal cannula at 40 L and 85% FiO2 On 12/18, requiring 50L and 85-90% FiO2, however as long as he lies on his side, his POx is 95-97%. Sats drop immediately with sitting up or any movement. Chest x-ray on 12/17 with progressed bilateral infiltrates -Completed 5 days Remdesivir on 12/12 -Completed 10 days of dexamethasone -Has been receiving lasix daily prn to keep negative fluid balance-we will give another 40 mg IV today -Completed full course of empiric abx therapy (rocephin/azithromycin) CRP and ESR were downtrending, but now CRP up to 14 Afebrile, no increase in sputum, do not suspect bacterial PNA Continue to wean down supplemental O2 as needed, use nasal saline and Afrin as needed for epistaxis. Encouraged use of IS and flutter valve again - proning or side sleeping as able to Long recovery, but I do expect that eventually he will improve Gave encouragement today (2) CKD (chronic kidney disease), stage III: Plan: Patient with history of CKD II presenting with BETTE Possibly secondary to pre- renal azotemia, patient reported poor oral intake upfront did receive 2L IVF upfront (NV/D upfront with poor oral intake) renal function improved from baseline (1.7). Continue Lasix daily to keep in net negative fluid balance-given another dose today good oral intake at present Follow BMP Avoid nephrotoxins Renally dose medications (3) Leukocytosis: Plan: likely steroid induced. completed full course of abx therapy Is afebrile Improved (4) Diabetes mellitus: Plan: Glimepiride and Metformin currently on hold Developed hypoglycemia for couple of days and insulin doses were decreased Dexamethasone course is now complete With hypoglycemia again in the afternoon of 12/17 have further reduced Lantus down to 8 units once daily and now improved Continue NovoLog sliding scale (5) Hypothyroidism: Plan: Chronic, TSH normal earlier in 2020 -Continue Synthroid 100mcg po daily (6) Dyslipidemia: Plan: Chronic -Continue Atorvastatin 40 mg po daily (7) Hyperuricemia: Plan: Chronic -Continue Allopurinol daily - decreased dose to 200mg po daily for renal function (8) Hypertension: Plan: Blood pressure acceptable - lisinopril initially held with A/CKD. - was then resumed with improved renal function -Continue to hold lisinopril given marginal hypotension (100's/50's) and while diuresing (9) Epistaxis: Plan: Secondary to nasal cannula supplemental oxygen drying out the nasal passages Advised saline nasal spray to be added on frequently throughout the day to moisturize the nose Afrin as needed for nosebleeds Plan: DVT prophylaxis-Lovenox 40 mg SQ twice daily, and pt definitely interested in taking Xarelto 10mg daily x 35 days after discharge Disposition-continued stay on telemetry status, expect at least 4-5 more days of hospitalization Admission and Anticipated Discharge Date Admission Date: December 06, 2020 Subjective Still having trouble keeping POx up, on 90% FiO2 today and 50L. Is making himself cough to get sputum up. Admits he hasn't been using his IS and flutter valve the last 2 days. Also c/o constipation x 3 days. Tele with [facility]R Review of Systems Review of Systems: All systems reviewed & are unremarkable except as noted in HPI & below Physical Exam Constitutional: WD/WN, vitals as above appears fatigued today Eyes: + anicteric sclerae Neck: trachea midline, no thyromegaly Respiratory: normal respiratory effort Auscultation: + crackles (Lower lung garcia bilaterally); no rhonchi and no wheezes Cardiovascular: RRR, no murmur, no edema Chest (Breasts): Chest: normal inspection of chest Gastrointestinal (Abdomen): normal bowel sounds, soft, nontender, no hepatosplenomegaly Musculoskeletal: Extremities: extremities normal to inspection; no cyanosis and no clubbing Skin: no rashes, warm and dry Neurologic: moves all extremities and awake; no focal motor deficits Psychiatric: A+Ox3, euthymic affect Lymphatic: no lymphedema Results & Data Results & Data ([facility]) Vital Signs (Past 12 Hours) Vital Signs Temp Pulse Pulse Pulse Resp BP Pulse Ox 12/18/20 12:02 36.5 C 83 26 H 130/66 81 L 12/18/20 11:14 81 20 91 12/18/20 08:11 36.9 C 69 20 129/71 93 12/18/20 08:00 75 12/18/20 07:32 65 18 92 12/18/20 07:31 65 18 91 12/18/20 05:02 37.4 C 70 20 114/64 12/18/20 04:25 76 24 93 Laboratory Results 12/18/20 12/18/20 12/18/20 Range/Units 11:24 08:10 06:52 WBC (4.8-10.8) K/uL RBC (4.7-6.1) M/uL Hgb (14.0-18.0) g/dL Hct (42-52) % MCV (80-100) fL MCH (25-34) pg MCHC (32-36) g/dL RDW Std Deviation (36.4-46.3) fL RDW Coeff of Donna (11.5-14.5) % Plt Count (130-400) K/uL MPV (7.4-10.4) fL Immature Gran % (Auto) % Neut % (Auto) % Lymph % (Auto) % [place] % (Auto) % Eos % (Auto) % Baso % (Auto) % Neut # (Auto) (1.4-6.5) K/uL Lymph # (Auto) (1.2-3.4) K/uL [place] # (Auto) (0.11-0.59) K/uL Eos # (Auto) (0-0.5) K/uL Baso # (Auto) (0-0.2) K/uL Immature Gran # (Auto) (0.00-0.02) K/uL Sodium 138 (136-145) mmol/L Potassium 4.3 (3.5-5.1) mmol/L Chloride 108 H (98-107) mmol/L Carbon Dioxide 23 (21-32) mmol/L Anion Gap 7.0 (3-11) BUN 53 H (7-18) mg/dl Creatinine 1.56 H (0.6-1.4) mg/dl Est Cr Clr Drug Dosing 47.7 ml/min Est GFR ( Amer) 49.6 ml/min Est GFR (Non-Af Amer) 42.8 ml/min BUN/Creatinine Ratio 33.7 H (10-20) Glucose 141 H (70-99) mg/dl POC Glucose 196 H 133 H (70-99) mg/dl Calcium 8.5 (8.5-10.1) mg/dl Magnesium 1.9 (1.8-2.4) mg/dl C-Reactive Protein 14.90 H (0-0.29) mg/dl 12/18/20 12/17/20 12/17/20 Range/Units 06:52 20:00 17:00 WBC 14.66 H (4.8-10.8) K/uL RBC 4.55 L (4.7-6.1) M/uL Hgb 14.5 (14.0-18.0) g/dL Hct 42.7 (42-52) % MCV 93.8 (80-100) fL MCH 31.9 (25-34) pg MCHC 34.0 (32-36) g/dL RDW Std Deviation 47.1 H (36.4-46.3) fL RDW Coeff of Donna 13.7 (11.5-14.5) % Plt Count 202 (130-400) K/uL MPV 10.6 H (7.4-10.4) fL Immature Gran % (Auto) 0.5 % Neut % (Auto) 85.7 % Lymph % (Auto) 5.8 % [place] % (Auto) 1.4 % Eos % (Auto) 6.5 % Baso % (Auto) 0.1 % Neut # (Auto) 12.55 H (1.4-6.5) K/uL Lymph # (Auto) 0.85 L (1.2-3.4) K/uL [place] # (Auto) 0.21 (0.11-0.59) K/uL Eos # (Auto) 0.96 H (0-0.5) K/uL Baso # (Auto) 0.01 (0-0.2) K/uL Immature Gran # (Auto) 0.08 H (0.00-0.02) K/uL Sodium (136-145) mmol/L Potassium (3.5-5.1) mmol/L Chloride (98-107) mmol/L Carbon Dioxide (21-32) mmol/L Anion Gap (3-11) BUN (7-18) mg/dl Creatinine (0.6-1.4) mg/dl Est Cr Clr Drug Dosing ml/min Est GFR ( Amer) ml/min Est GFR (Non-Af Amer) ml/min BUN/Creatinine Ratio (10-20) Glucose (70-99) mg/dl POC Glucose 148 H 82 (70-99) mg/dl Calcium (8.5-10.1) mg/dl Magnesium (1.8-2.4) mg/dl C-Reactive Protein (0-0.29) mg/dl 12/17/20 12/17/20 12/17/20 Range/Units 16:41 16:21 16:20 WBC (4.8-10.8) K/uL RBC (4.7-6.1) M/uL Hgb (14.0-18.0) g/dL Hct (42-52) % MCV (80-100) fL MCH (25-34) pg MCHC (32-36) g/dL RDW Std Deviation (36.4-46.3) fL RDW Coeff of Donna (11.5-14.5) % Plt Count (130-400) K/uL MPV (7.4-10.4) fL Immature Gran % (Auto) % Neut % (Auto) % Lymph % (Auto) % [place] % (Auto) % Eos % (Auto) % Baso % (Auto) % Neut # (Auto) (1.4-6.5) K/uL Lymph # (Auto) (1.2-3.4) K/uL [place] # (Auto) (0.11-0.59) K/uL Eos # (Auto) (0-0.5) K/uL Baso # (Auto) (0-0.2) K/uL Immature Gran # (Auto) (0.00-0.02) K/uL Sodium (136-145) mmol/L Potassium (3.5-5.1) mmol/L Chloride (98-107) mmol/L Carbon Dioxide (21-32) mmol/L Anion Gap (3-11) BUN (7-18) mg/dl Creatinine (0.6-1.4) mg/dl Est Cr Clr Drug Dosing ml/min Est GFR ( Amer) ml/min Est GFR (Non-Af Amer) ml/min BUN/Creatinine Ratio (10-20) Glucose (70-99) mg/dl POC Glucose 65 L* 66 L* 63 L* (70-99) mg/dl Calcium (8.5-10.1) mg/dl Magnesium (1.8-2.4) mg/dl C-Reactive Protein (0-0.29) mg/dl PG Care Time/CCT Total # of Minutes Spent Total Time Spent with Patient: Total time spent is greater than 50% in coordination of care (as documented) at patient's floor/unit and/or counseling patient: Coding Level of Care Code 34921 Subseq Hosp Care Lvl 3 Diagnoses COVID-19 U07.1 CKD (chronic kidney disease), stage III N18.3 Leukocytosis D72.829 Diabetes mellitus E11.9 Hypothyroidism E03.9 Dyslipidemia E78.5 Hyperuricemia E79.0 Hypertension I10 Epistaxis R04.0
[2020-12-18] MEDS: DOCUSATE SODIUM/SENNA 50/8.6MG TAB PO SCH (17:43)
[2020-12-19] MEDS: LEVOTHYROXINE SODIUM 100 MCG TABLET PO SCH (06:02)
[2020-12-19] MEDS: ALBUT/IPRATROP 3MG/0.5MG NEB 3 ML VIAL NEB SCH ×4 (07:50→19:59)
[2020-12-19] MEDS: allopurinoL 100 MG TAB PO SCH (09:26)
[2020-12-19] MEDS: ZINC SULFATE 220 MG CAPSULE PO SCH (09:26)
[2020-12-19] MEDS: ATORVASTATIN 40 MG TAB PO SCH (09:26)
[2020-12-19] MEDS: ASPIRIN 81 MG ECTAB PO SCH (09:26)
[2020-12-19] MEDS: ASCORBIC ACID 500 MG TAB PO SCH (09:26)
[2020-12-19] MEDS: guaiFENesin 600 MG TABCR PO SCH ×2 (09:26→21:28)
[2020-12-19] MEDS: SODIUM CHLORIDE 0.65% NA SOLN 45 ML (OCEAN) PRN (09:27)
[2020-12-19] MEDS: ENOXAPARIN INJ 40 MG/0.4 ML SYR SQ SCH ×2 (09:27→21:28)
[2020-12-19] MEDS: DOCUSATE SODIUM/SENNA 50/8.6MG TAB PO SCH (09:27)
[2020-12-19] MEDS: OXYMETAZOLINE 0.05% 30 ML BTL PRN (09:28)
[2020-12-19 09:53] LABS: Basophils # (auto) 0.01 K/uL (0-0.2); Basophils % (auto) 0.1 %; Eosinophils % (auto) 7.2 %; Hematocrit (blood only) 42.7 % (42-52); Hemoglobin 14.5 g/dL (14.0-18.0); Immature Granulocytes # (auto) 0.06 K/uL (0.00-0.02); Immature Granulocytes % (auto) 0.4 %; Lymphocytes # (auto) 0.91 K/uL (1.2-3.4); Lymphocytes % (auto) 6.5 %; Mean Corpuscular Hemoglobin 32.2 pg (25-34); Mean Corpuscular Volume 94.7 fL (80-100); Mean Platelet Volume 10.6 fL (7.4-10.4); Monocytes # (auto) 0.36 K/uL (0.11-0.59); Monocytes % (auto) 2.6 %; Neutrophils # (auto) 11.64 K/uL (1.4-6.5); Neutrophils % (auto) 83.2 %; Platelet Count 203 K/uL (130-400); RDW Coefficient of Variation 13.5 % (11.5-14.5); RDW Standard Deviation 46.9 fL (36.4-46.3); Red Blood Count 4.51 M/uL (4.7-6.1); White Blood Count 13.98 K/uL (4.8-10.8)
[2020-12-19 10:28] LABS: Albumin Level 1.8 gm/dl (3.4-5.0); BUN Creatinine Ratio 27.3 (10-20); Calcium 8.6 mg/dl (8.5-10.1); Creatinine Clr Calc Pharmacy 45.4 ml/min; Est GFR (African American) 46.7 ml/min; Est GFR (Non-African American) 40.3 ml/min; Magnesium 2.4 mg/dl (1.8-2.4); Potassium 4.9 mmol/L (3.5-5.1)
[2020-12-19 10:31] LABS: Albumin Globulin Ratio 0.4 (0.9-2); Bilirubin,Total 1.4 mg/dl (0.2-1); C Reactive Protein 16.3 mg/dl (0-0.29); Globulin 4.7 gm/dl (2.5-4.0); Total Protein 6.5 gm/dl (6.4-8.2)
[2020-12-19] MEDS: INSULIN ASPART 100 UNITS/ML 3 ML PEN SC SCH ×4 (10:31→21:20)
[2020-12-19] MEDS: INSULIN GLARGINE SOLOSTAR 100 UNITS/ML 3 ML PEN SC SCH (10:32)
[2020-12-19] MEDS ORDERED: PIPERACILL/TAZOBAC CONSULT ACTIVE PRN (11:05)
[2020-12-19] MEDS ORDERED: PIPERACILLIN/TAZOBACTAM 3.375 GM in DEXTROSE 5% 100 ML IV SCH (11:15)
[2020-12-19] MEDS ORDERED: FUROSEMIDE 40 MG in SYRINGE 0 ML IV ONE (11:30)
[2020-12-19] MEDS ORDERED: FUROSEMIDE 40 MG/4 ML VIAL IV ONE (11:37)
[2020-12-19] MEDS ORDERED: PIPERACILLIN/TAZOBACTAM 4.5 GM in DEXTROSE 5% 100 ML IV ONE (12:00)
--- NOTE | 2020-12-19 15:49 | Hospitalist Progress Note ---
Date of Service December 19, 2020 Assessment & Plan (1) COVID-19: Plan: 75yo male with history of DM, HTN, CKD-III presenting with Covid-19, hypoxia 88% on RA in ED. Patient is fully vaccinated against Covid (Pfizer-May) exposed to Covid-19 at a wedding 1 week [employer], Symptoms onset 12/02/11 not candidate for Tocilizumab (CRP downtrending and outside of window to give from symptoms onset) Initially requiring 3L O2 [place] hospital day #2-3, needing 5L but was stable 12/12 (days #12 of viral course)--> Acute hypoxemic respiratory failure (sats 70-80's)-- needed 10L oxymask for sats to recover Was continuing to improve, and was weaned down to 7 L oxygen mask on 12/15, however on 12/16 he was having epistaxis which then caused difficulty breathing through his nose and had to be placed back on oxygen mask at 10 L to recover On 12/17 was requiring 15 L oxygen mask to keep pulse ox greater than 88% and was placed on high flow nasal cannula at 40 L and 85% FiO2 On 12/18, requiring 50L and 85-90% FiO2, however as long as he lies on his side, his POx is 95-97%. Sats drop immediately with sitting up or any movement. On 12/19, still requiring 50 L but weaned down to 75% FiO2, with suspected secondary bacterial pneumonia given continued productive sputum, elevated p rocalcitonin of 2.8, CRP continues to go up to 16, persistent leukocytosis. Is afebrile. Chest x-ray on 12/17 with progressed bilateral infiltrates Completed 5 days Remdesivir on 12/12 Completed 10 days of dexamethasone Has been receiving lasix daily prn to keep negative fluid balance- will give another 40 mg IV today Completed full course of empiric abx therapy (rocephin/azithromycin) earlier in the course of hospitalization -Start IV Zosyn for coverage for gram-negative pneumonia -Check MRSA swab-if positive, will also add on vancomycin -Continue to wean down supplemental O2 as needed, use nasal saline and Afrin as needed for epistaxis. -Encouraged use of IS and flutter valve -Continue proning or side sleeping as able to Long recovery, but I do expect that eventually he will improve Gave encouragement today (2) CKD (chronic kidney disease), stage III: Plan: Patient with history of CKD II presenting with BETTE Possibly secondary to pre- renal azotemia, patient reported poor oral intake upfront did receive 2L IVF upfront (NV/D upfront with poor oral intake) renal function improved from baseline (1.7). Continue Lasix daily to keep in net negative fluid balance-given another dose today good oral intake at present Follow BMP Avoid nephrotoxins Renally dose medications (3) Leukocytosis: Plan: likely steroid induced, however persists and steroids have been discontinued for 4 days Likely with secondary bacterial pneumonia as above Follow CBC (4) Diabetes mellitus: Plan: Glimepiride and Metformin currently on hold Developed hypoglycemia for couple of days and insulin doses were decreased Dexamethasone course is now complete With hypoglycemia again in the afternoon of 12/17 have further reduced Lantus down to 8 units once daily and now improved, no further hypoglycemia Continue NovoLog sliding scale (5) Hypothyroidism: Plan: Chronic, TSH normal earlier in 2020 -Continue Synthroid 100mcg po daily (6) Dyslipidemia: Plan: Chronic -Continue Atorvastatin 40 mg po daily (7) Hyperuricemia: Plan: Chronic -Continue Allopurinol daily - decreased dose to 200mg po daily for renal function (8) Hypertension: Plan: Blood pressure acceptable - lisinopril initially held with A/CKD. - was then resumed with improved renal function -Continue to hold lisinopril given marginal hypotension while diuresing (9) Epistaxis: Plan: Secondary to nasal cannula supplemental oxygen drying out the nasal passages Advised saline nasal spray to be added on frequently throughout the day to moisturize the nose Afrin as needed for nosebleeds Resolved Plan: DVT prophylaxis-Lovenox 40 mg SQ twice daily, and pt definitely agreeable to taking Xarelto 10mg daily x 35 days after discharge for prolonged VTE prophylaxis Disposition-continued stay on telemetry status, expect at least 4-5 more days of hospitalization Admission and Anticipated Discharge Date Admission Date: December 06, 2020 Subjective Patient remains on high flow nasal cannula 50 L and 75% FiO2 which is a slight improvement from yesterday. He does relay some increase at times of productive sputum. He is afebrile but leukocytosis persists, CRP and procalcitonin are significantly elevated. Antibiotics to be started. He denies chest pain, no nausea or vomiting, no abdominal pain. He is happy that he had 2 bowel movements today. Telemetry with normal sinus rhythm and PVCs, PACs, rates of 70 Review of Systems Review of Systems: All systems reviewed & are unremarkable except as noted in HPI & below Physical Exam Constitutional: WD/WN, vitals as above Eyes: + anicteric sclerae Neck: trachea midline, no thyromegaly Respiratory: normal respiratory effort Auscultation: + crackles (Lower and middle lung garcia bilaterally); no rhonchi and no wheezes Cardiovascular: RRR, no murmur, no edema Chest (Breasts): Chest: normal inspection of chest Gastrointestinal (Abdomen): normal bowel sounds, soft, nontender, no hepatosplenomegaly Musculoskeletal: Extremities: extremities normal to inspection; no cyanosis and no clubbing Skin: no rashes, warm and dry Neurologic: moves all extremities and awake; no focal motor deficits Psychiatric: A+Ox3, euthymic affect Lymphatic: no lymphedema Results & Data Results & Data ([facility]) Vital Signs (Past 12 Hours) Vital Signs Temp Pulse Pulse Pulse Resp BP Pulse Ox 12/19/20 12:18 36.9 C 77 20 110/61 95 12/19/20 11:11 75 20 92 12/19/20 07:55 75 12/19/20 07:51 75 24 91 12/19/20 07:34 37.0 C 76 22 141/69 H 91 12/19/20 05:04 36.8 C 70 20 129/71 95 Laboratory Results 12/19/20 12/19/20 12/19/20 Range/Units 12:30 11:59 07:52 WBC (4.8-10.8) K/uL RBC (4.7-6.1) M/uL Hgb (14.0-18.0) g/dL Hct (42-52) % MCV (80-100) fL MCH (25-34) pg MCHC (32-36) g/dL RDW Std Deviation (36.4-46.3) fL RDW Coeff of Donna (11.5-14.5) % Plt Count (130-400) K/uL MPV (7.4-10.4) fL Immature Gran % (Auto) % Neut % (Auto) % Lymph % (Auto) % [place] % (Auto) % Eos % (Auto) % Baso % (Auto) % Neut # (Auto) (1.4-6.5) K/uL Lymph # (Auto) (1.2-3.4) K/uL [place] # (Auto) (0.11-0.59) K/uL Eos # (Auto) (0-0.5) K/uL Baso # (Auto) (0-0.2) K/uL Immature Gran # (Auto) (0.00-0.02) K/uL Sodium (136-145) mmol/L Potassium (3.5-5.1) mmol/L Chloride (98-107) mmol/L Carbon Dioxide (21-32) mmol/L Anion Gap (3-11) BUN (7-18) mg/dl Creatinine (0.6-1.4) mg/dl Est Cr Clr Drug Dosing ml/min Est GFR ( Amer) ml/min Est GFR (Non-Af Amer) ml/min BUN/Creatinine Ratio (10-20) Glucose (70-99) mg/dl POC Glucose 147 H 155 H (70-99) mg/dl Calcium (8.5-10.1) mg/dl Magnesium (1.8-2.4) mg/dl Total Bilirubin (0.2-1) mg/dl AST (15-37) U/L ALT (12-78) U/L Alkaline Phosphatase (45-117) U/L C-Reactive Protein (0-0.29) mg/dl Total Protein (6.4-8.2) gm/dl Albumin (3.4-5.0) gm/dl Globulin (2.5-4.0) gm/dl Albumin/Globulin Ratio (0.9-2) Procalcitonin (0-0.5) ng/ml Nasal Screen MRSA (PCR) Pending 12/19/20 12/19/20 12/19/20 Range/Units 07:45 07:45 07:45 WBC 13.98 H (4.8-10.8) K/uL RBC 4.51 L (4.7-6.1) M/uL Hgb 14.5 (14.0-18.0) g/dL Hct 42.7 (42-52) % MCV 94.7 (80-100) fL MCH 32.2 (25-34) pg MCHC 34.0 (32-36) g/dL RDW Std Deviation 46.9 H (36.4-46.3) fL RDW Coeff of Donna 13.5 (11.5-14.5) % Plt Count 203 (130-400) K/uL MPV 10.6 H (7.4-10.4) fL Immature Gran % (Auto) 0.4 % Neut % (Auto) 83.2 % Lymph % (Auto) 6.5 % Sequ[place] % (Auto) 2.6 % Eos % (Auto) 7.2 % Baso % (Auto) 0.1 % Neut # (Auto) 11.64 H (1.4-6.5) K/uL Lymph # (Auto) 0.91 L (1.2-3.4) K/uL Sequ[place]ah # (Auto) 0.36 (0.11-0.59) K/uL Eos # (Auto) 1.00 H (0-0.5) K/uL Baso # (Auto) 0.01 (0-0.2) K/uL Immature Gran # (Auto) 0.06 H (0.00-0.02) K/uL Sodium 136 (136-145) mmol/L Potassium 4.9 (3.5-5.1) mmol/L Chloride 106 (98-107) mmol/L Carbon Dioxide 28 (21-32) mmol/L Anion Gap 2.0 L (3-11) BUN 45 H (7-18) mg/dl Creatinine 1.64 H (0.6-1.4) mg/dl Est Cr Clr Drug Dosing 45.4 ml/min Est GFR ( Amer) 46.7 ml/min Est GFR (Non-Af Amer) 40.3 ml/min BUN/Creatinine Ratio 27.3 H (10-20) Glucose 155 H (70-99) mg/dl POC Glucose (70-99) mg/dl Calcium 8.6 (8.5-10.1) mg/dl Magnesium 2.4 (1.8-2.4) mg/dl Total Bilirubin 1.4 H (0.2-1) mg/dl AST 18 (15-37) U/L ALT 29 (12-78) U/L Alkaline Phosphatase 72 (45-117) U/L C-Reactive Protein 16.30 H (0-0.29) mg/dl Total Protein 6.5 (6.4-8.2) gm/dl Albumin 1.8 L (3.4-5.0) gm/dl Globulin 4.7 H (2.5-4.0) gm/dl Albumin/Globulin Ratio 0.4 L (0.9-2) Procalcitonin 2.81 H (0-0.5) ng/ml Nasal Screen MRSA (PCR) 12/18/20 12/18/20 Range/Units 21:53 16:46 WBC (4.8-10.8) K/uL RBC (4.7-6.1) M/uL Hgb (14.0-18.0) g/dL Hct (42-52) % MCV (80-100) fL MCH (25-34) pg MCHC (32-36) g/dL RDW Std Deviation (36.4-46.3) fL RDW Coeff of Donna (11.5-14.5) % Plt Count (130-400) K/uL MPV (7.4-10.4) fL Immature Gran % (Auto) % Neut % (Auto) % Lymph % (Auto) % [place] % (Auto) % Eos % (Auto) % Baso % (Auto) % Neut # (Auto) (1.4-6.5) K/uL Lymph # (Auto) (1.2-3.4) K/uL [place] # (Auto) (0.11-0.59) K/uL Eos # (Auto) (0-0.5) K/uL Baso # (Auto) (0-0.2) K/uL Immature Gran # (Auto) (0.00-0.02) K/uL Sodium (136-145) mmol/L Potassium (3.5-5.1) mmol/L Chloride (98-107) mmol/L Carbon Dioxide (21-32) mmol/L Anion Gap (3-11) BUN (7-18) mg/dl Creatinine (0.6-1.4) mg/dl Est Cr Clr Drug Dosing ml/min Est GFR ( Amer) ml/min Est GFR (Non-Af Amer) ml/min BUN/Creatinine Ratio (10-20) Glucose (70-99) mg/dl POC Glucose 220 H 180 H (70-99) mg/dl Calcium (8.5-10.1) mg/dl Magnesium (1.8-2.4) mg/dl Total Bilirubin (0.2-1) mg/dl AST (15-37) U/L ALT (12-78) U/L Alkaline Phosphatase (45-117) U/L C-Reactive Protein (0-0.29) mg/dl Total Protein (6.4-8.2) gm/dl Albumin (3.4-5.0) gm/dl Globulin (2.5-4.0) gm/dl Albumin/Globulin Ratio (0.9-2) Procalcitonin (0-0.5) ng/ml Nasal Screen MRSA (PCR) PG Care Time/CCT Total # of Minutes Spent Total Time Spent with Patient: Total time spent is greater than 50% in coordination of care (as documented) at patient's floor/unit and/or counseling patient: Coding Level of Care Code 10263 Subseq Hosp Care Lvl 3 Diagnoses COVID-19 U07.1 CKD (chronic kidney disease), stage III N18.3 Leukocytosis D72.829 Diabetes mellitus E11.9 Hypothyroidism E03.9 Dyslipidemia E78.5 Hyperuricemia E79.0 Hypertension I10 Epistaxis R04.0
[2020-12-19] MEDS: PIPERACILLIN/TAZOBACTAM 4.5 GM in DEXTROSE 5% 100 ML IV SCH ×2 (16:09→23:50)
[2020-12-19] MEDS ORDERED: COUGH DROP (SUGAR FREE) LOZ 24 LOZ/1 BOX BUCCAL ONE (21:31)
[2020-12-20] MEDS: LEVOTHYROXINE SODIUM 100 MCG TABLET PO SCH (05:41)
[2020-12-20 06:23] LABS: Basophils # (auto) 0.01 K/uL (0-0.2); Basophils % (auto) 0.1 %; Eosinophils # (auto) 0.79 K/uL (0-0.5); Eosinophils % (auto) 6.5 %; Hematocrit (blood only) 44.7 % (42-52); Hemoglobin 14.7 g/dL (14.0-18.0); Immature Granulocytes # (auto) 0.05 K/uL (0.00-0.02); Immature Granulocytes % (auto) 0.4 %; Lymphocytes # (auto) 1.19 K/uL (1.2-3.4); Lymphocytes % (auto) 9.7 %; Mean Corpuscular Hgb Conc 32.9 g/dL (32-36); Mean Corpuscular Volume 97.4 fL (80-100); Mean Platelet Volume 10.5 fL (7.4-10.4); Monocytes # (auto) 0.33 K/uL (0.11-0.59); Monocytes % (auto) 2.7 %; Neutrophils # (auto) 9.86 K/uL (1.4-6.5); Neutrophils % (auto) 80.6 %; Platelet Count 235 K/uL (130-400); RDW Coefficient of Variation 13.4 % (11.5-14.5); RDW Standard Deviation 47.7 fL (36.4-46.3); Red Blood Count 4.59 M/uL (4.7-6.1); White Blood Count 12.23 K/uL (4.8-10.8)
[2020-12-20 07:11] LABS: Albumin Globulin Ratio 0.4 (0.9-2); Albumin Level 1.8 gm/dl (3.4-5.0); BUN Creatinine Ratio 21.3 (10-20); C Reactive Protein 12.9 mg/dl (0-0.29); Calcium 8.4 mg/dl (8.5-10.1); Creatinine Clr Calc Pharmacy 38.6 ml/min; Est GFR (African American) 38.6 ml/min; Est GFR (Non-African American) 33.3 ml/min; Globulin 4.9 gm/dl (2.5-4.0); Magnesium 2.3 mg/dl (1.8-2.4); Potassium 4.1 mmol/L (3.5-5.1); Total Protein 6.7 gm/dl (6.4-8.2)
[2020-12-20] MEDS: ALBUT/IPRATROP 3MG/0.5MG NEB 3 ML VIAL NEB SCH ×4 (07:50→19:47)
[2020-12-20] MEDS: PIPERACILLIN/TAZOBACTAM 4.5 GM in DEXTROSE 5% 100 ML IV SCH ×2 (09:27→17:05)
[2020-12-20] MEDS: ATORVASTATIN 40 MG TAB PO SCH (09:28)
[2020-12-20] MEDS: guaiFENesin 600 MG TABCR PO SCH ×2 (09:28→20:20)
[2020-12-20] MEDS: ENOXAPARIN INJ 40 MG/0.4 ML SYR SQ SCH ×2 (09:28→20:20)
[2020-12-20] MEDS: allopurinoL 100 MG TAB PO SCH (09:28)
[2020-12-20] MEDS: ZINC SULFATE 220 MG CAPSULE PO SCH (09:28)
[2020-12-20] MEDS: ASPIRIN 81 MG ECTAB PO SCH (09:28)
[2020-12-20] MEDS: DOCUSATE SODIUM/SENNA 50/8.6MG TAB PO SCH (09:28)
[2020-12-20] MEDS: ASCORBIC ACID 500 MG TAB PO SCH (09:28)
[2020-12-20] MEDS: INSULIN ASPART 100 UNITS/ML 3 ML PEN SC SCH ×4 (09:48→21:04)
[2020-12-20] MEDS: INSULIN GLARGINE SOLOSTAR 100 UNITS/ML 3 ML PEN SC SCH (09:49)
--- NOTE | 2020-12-20 17:44 | Hospitalist Progress Note ---
Date of Service December 20, 2020 Assessment & Plan (1) COVID-19: Plan: 75yo male with history of DM, HTN, CKD-III presenting with Covid-19, hypoxia 88% on RA in ED. Patient is fully vaccinated against Covid (Pfizer-May) exposed to Covid-19 at a wedding 1 week [employer], Symptoms onset 12/02/11 Was not candidate for Tocilizumab (CRP downtrending and outside of window to give from symptoms onset) Completed 5 days Remdesivir on 12/12 Completed 10 days of dexamethasone Has been receiving lasix daily prn to keep negative fluid balance-will not give any today as renal function is worsening Completed full course of empiric abx therapy (rocephin/azithromycin) earlier in the course of hospitalization Initially requiring 3L O2 [place] hospital day #2-3, needing 5L but was stable 12/12 (days #12 of viral course)--> Acute hypoxemic respiratory failure (sats 70-80's)-- needed 10L oxymask for sats to recover Was continuing to improve, and was weaned down to 7 L oxygen mask on 12/15, however on 12/16 he was having epistaxis which then caused difficulty breathing through his nose and had to be placed back on oxygen mask at 10 L to recover On 12/17 was requiring 15 L oxygen mask to keep pulse ox greater than 88% and was placed on high flow nasal cannula at 40 L and 85% FiO2 Chest x-ray on 12/17 with progressed bilateral infiltrates On 12/18, requiring 50L and 85-90% FiO2, however as long as he lies on his side, his POx is 95-97%. Sats drop immediately with sitting up or any movement. On 12/19, still requiring 50 L but weaned down to 75% FiO2, with suspected secondary bacterial pneumonia given continued productive sputum, elevated procalcitonin of 2.8, CRP continues to go up to 16, persistent leukocytosis. Is afebrile. On 12/20-was weaned down to 6 L nasal cannula earlier in the day, but had severe desaturation to the mid 70s with getting to bedside commode-placed back on high flow nasal cannula but now weaning down again -Started IV Zosyn on 12/19 for coverage for gram-negative pneumonia -Procalcitonin and CRP starting to trend back downward - MRSA swab negative-no need for vancomycin -Continue to wean down supplemental O2 as needed, use nasal saline and Afrin as needed for epistaxis. -Encouraged use of IS and flutter valve -Continue proning or side sleeping as able to Long recovery, but I do expect that eventually he will improve Gave encouragement again today (2) CKD (chronic kidney disease), stage III: Plan: Patient with history of CKD II presenting with BETTE Possibly secondary to pre- renal azotemia, patient reported poor oral intake upfront did receive 2L IVF upfront (NV/D upfront with poor oral intake) renal function fairly stable but increased to 1.9-hold off on further Lasix Follow BMP Avoid nephrotoxins Renally dose medications (3) Leukocytosis: Plan: likely steroid induced, however persisted despite discontinuation of steroids for many days-possibly due to a bacterial secondary pneumonia Likely with secondary bacterial pneumonia as above Follow CBC-improving today Continue antibiotics (4) Diabetes mellitus: Plan: Glimepiride and Metformin currently on hold Developed hypoglycemia for couple of days and insulin doses were decreased Dexamethasone course is now complete With hypoglycemia again in the afternoon of 12/17 have further reduced Lantus down to 8 units once daily and now improved, no further hypoglycemia Continue NovoLog sliding scale (5) Hypothyroidism: Plan: Chronic, TSH normal earlier in 2020 -Continue Synthroid 100mcg po daily (6) Dyslipidemia: Plan: Chronic -Continue Atorvastatin 40 mg po daily (7) Hyperuricemia: Plan: Chronic -Continue Allopurinol daily - decreased dose to 200mg po daily for renal function (8) Hypertension: Plan: Blood pressure acceptable - lisinopril initially held with A/CKD. - was then resumed with improved renal function -Continue to hold lisinopril given marginal hypotension while diuresing (9) Epistaxis: Plan: Secondary to nasal cannula supplemental oxygen drying out the nasal passages Advised saline nasal spray to be added on frequently throughout the day to moisturize the nose Afrin as needed for nosebleeds Resolved (10) Oral candidiasis: Plan: Started nystatin swish and swallow on 12/20 x 10-day course Plan: DVT prophylaxis-Lovenox 40 mg SQ twice daily, and pt definitely agreeable to taking Xarelto 10mg daily x 35 days after discharge for prolonged VTE prophylaxis Disposition-continued stay on telemetry status, expect at least 4-5 more days of hospitalization Admission and Anticipated Discharge Date Admission Date: December 06, 2020 Subjective Patient was having a much better day earlier-was weaned down to 6 L nasal cannula. However, he got up to get on the bedside commode to move his bowels and dropped his sats into the mid 70s. He was placed back on high flow nasal cannula at 60 L and 100% FiO2 and it took quite a while as per nursing and respiratory therapy to get his pulse ox back up above 88%. When I saw him, he was anxious to try to wean back down to the nasal cannula again. He did report that he felt significant shortness of breath at that time but no longer does. He reports that he did not eat or drink much today because of the low oxygen levels if he even sits up to eat. He also is reporting a bit of a sore throat. I discussed his care with respiratory therapy and nursing. Telemetry with normal sinus rhythm, PACs, PVCs, rate 70s-80s Review of Systems Review of Systems: All systems reviewed & are unremarkable except as noted in HPI & below Physical Exam Constitutional: WD/WN, vitals as above Eyes: + anicteric sclerae ENMT: Mouth: + oral mucosal abnormality (With white exudate on tongue and buccal mucosa, mild erythema throat) Neck: trachea midline, no thyromegaly Respiratory: normal respiratory effort Auscultation: + crackles (Lower and middle lung garcia bilaterally); no rhonchi and no wheezes Cardiovascular: RRR, no murmur, no edema Chest (Breasts): Chest: normal inspection of chest Gastrointestinal (Abdomen): normal bowel sounds, soft, nontender, no hepa tosplenomegaly Musculoskeletal: Extremities: extremities normal to inspection; no cyanosis and no clubbing Skin: no rashes, warm and dry Neurologic: moves all extremities and awake; no focal motor deficits Psychiatric: A+Ox3, euthymic affect Lymphatic: no lymphedema Results & Data Results & Data ([facility]) Vital Signs (Past 12 Hours) Vital Signs Temp Pulse Pulse Pulse Resp BP Pulse Ox 12/20/20 16:19 80 26 H 98 12/20/20 15:08 36.6 C 82 22 109/63 96 12/20/20 13:59 84 22 92 12/20/20 13:55 92 H 22 92 12/20/20 12:27 86 16 98/65 L 95 12/20/20 11:19 77 20 92 12/20/20 09:20 36.8 C 81 78 16 111/62 92 12/20/20 07:51 80 22 93 12/20/20 07:50 77 93 12/20/20 07:00 79 Laboratory Results 12/20/20 12/20/20 12/20/20 Range/Units 16:38 11:18 07:18 WBC (4.8-10.8) K/uL RBC (4.7-6.1) M/uL Hgb (14.0-18.0) g/dL Hct (42-52) % MCV (80-100) fL MCH (25-34) pg MCHC (32-36) g/dL RDW Std Deviation (36.4-46.3) fL RDW Coeff of Donna (11.5-14.5) % Plt Count (130-400) K/uL MPV (7.4-10.4) fL Immature Gran % (Auto) % Neut % (Auto) % Lymph % (Auto) % [place] % (Auto) % Eos % (Auto) % Baso % (Auto) % Neut # (Auto) (1.4-6.5) K/uL Lymph # (Auto) (1.2-3.4) K/uL Mills # (Auto) (0.11-0.59) K/uL Eos # (Auto) (0-0.5) K/uL Baso # (Auto) (0-0.2) K/uL Immature Gran # (Auto) (0.00-0.02) K/uL Sodium (136-145) mmol/L Potassium (3.5-5.1) mmol/L Chloride (98-107) mmol/L Carbon Dioxide (21-32) mmol/L Anion Gap (3-11) BUN (7-18) mg/dl Creatinine (0.6-1.4) mg/dl Est Cr Clr Drug Dosing ml/min Est GFR ( Amer) ml/min Est GFR (Non-Af Amer) ml/min BUN/Creatinine Ratio (10-20) Glucose (70-99) mg/dl POC Glucose 153 H 172 H 175 H (70-99) mg/dl Calcium (8.5-10.1) mg/dl Magnesium (1.8-2.4) mg/dl Total Bilirubin (0.2-1) mg/dl AST (15-37) U/L ALT (12-78) U/L Alkaline Phosphatase (45-117) U/L C-Reactive Protein (0-0.29) mg/dl Total Protein (6.4-8.2) gm/dl Albumin (3.4-5.0) gm/dl Globulin (2.5-4.0) gm/dl Albumin/Globulin Ratio (0.9-2) Procalcitonin (0-0.5) ng/ml 12/20/20 12/20/20 12/20/20 Range/Units 05:47 05:47 05:47 WBC 12.23 H (4.8-10.8) K/uL RBC 4.59 L (4.7-6.1) M/uL Hgb 14.7 (14.0-18.0) g/dL Hct 44.7 (42-52) % MCV 97.4 (80-100) fL MCH 32.0 (25-34) pg MCHC 32.9 (32-36) g/dL RDW Std Deviation 47.7 H (36.4-46.3) fL RDW Coeff of Donna 13.4 (11.5-14.5) % Plt Count 235 (130-400) K/uL MPV 10.5 H (7.4-10.4) fL Immature Gran % (Auto) 0.4 % Neut % (Auto) 80.6 % Lymph % (Auto) 9.7 % Mills % (Auto) 2.7 % Eos % (Auto) 6.5 % Baso % (Auto) 0.1 % Neut # (Auto) 9.86 H (1.4-6.5) K/uL Lymph # (Auto) 1.19 L (1.2-3.4) K/uL Mills # (Auto) 0.33 (0.11-0.59) K/uL Eos # (Auto) 0.79 H (0-0.5) K/uL Baso # (Auto) 0.01 (0-0.2) K/uL Immature Gran # (Auto) 0.05 H (0.00-0.02) K/uL Sodium 136 (136-145) mmol/L Potassium 4.1 D (3.5-5.1) mmol/L Chloride 100 (98-107) mmol/L Carbon Dioxide 28 (21-32) mmol/L Anion Gap 8.0 (3-11) BUN 41 H (7-18) mg/dl Creatinine 1.92 H (0.6-1.4) mg/dl Est Cr Clr Drug Dosing 38.6 ml/min Est GFR ( Amer) 38.6 ml/min Est GFR (Non-Af Amer) 33.3 ml/min BUN/Creatinine Ratio 21.3 H (10-20) Glucose 182 H (70-99) mg/dl POC Glucose (70-99) mg/dl Calcium 8.4 L (8.5-10.1) mg/dl Magnesium 2.3 (1.8-2.4) mg/dl Total Bilirubin 2.0 H (0.2-1) mg/dl AST 23 (15-37) U/L ALT 29 (12-78) U/L Alkaline Phosphatase 83 (45-117) U/L C-Reactive Protein 12.90 H (0-0.29) mg/dl Total Protein 6.7 (6.4-8.2) gm/dl Albumin 1.8 L (3.4-5.0) gm/dl Globulin 4.9 H (2.5-4.0) gm/dl Albumin/Globulin Ratio 0.4 L (0.9-2) Procalcitonin 2.53 H (0-0.5) ng/ml 12/19/20 Range/Units 20:19 WBC (4.8-10.8) K/uL RBC (4.7-6.1) M/uL Hgb (14.0-18.0) g/dL Hct (42-52) % MCV (80-100) fL MCH (25-34) pg MCHC (32-36) g/dL RDW Std Deviation (36.4-46.3) fL RDW Coeff of Donna (11.5-14.5) % Plt Count (130-400) K/uL MPV (7.4-10.4) fL Immature Gran % (Auto) % Neut % (Auto) % Lymph % (Auto) % [place] % (Auto) % Eos % (Auto) % Baso % (Auto) % Neut # (Auto) (1.4-6.5) K/uL Lymph # (Auto) (1.2-3.4) K/uL Mills # (Auto) (0.11-0.59) K/uL Eos # (Auto) (0-0.5) K/uL Baso # (Auto) (0-0.2) K/uL Immature Gran # (Auto) (0.00-0.02) K/uL Sodium (136-145) mmol/L Potassium (3.5-5.1) mmol/L Chloride (98-107) mmol/L Carbon Dioxide (21-32) mmol/L Anion Gap (3-11) BUN (7-18) mg/dl Creatinine (0.6-1.4) mg/dl Est Cr Clr Drug Dosing ml/min Est GFR ( Amer) ml/min Est GFR (Non-Af Amer) ml/min BUN/Creatinine Ratio (10-20) Glucose (70-99) mg/dl POC Glucose 185 H (70-99) mg/dl Calcium (8.5-10.1) mg/dl Magnesium (1.8-2.4) mg/dl Total Bilirubin (0.2-1) mg/dl AST (15-37) U/L ALT (12-78) U/L Alkaline Phosphatase (45-117) U/L C-Reactive Protein (0-0.29) mg/dl Total Protein (6.4-8.2) gm/dl Albumin (3.4-5.0) gm/dl Globulin (2.5-4.0) gm/dl Albumin/Globulin Ratio (0.9-2) Procalcitonin (0-0.5) ng/ml PG Care Time/CCT Total # of Minutes Spent Total Time Spent with Patient: Total time spent is greater than 50% in coordination of care (as documented) at patient's floor/unit and/or counseling patient: Coding Level of Care Code 97170 Subseq Hosp Care Lvl 3 Diagnoses COVID-19 U07.1 CKD (chronic kidney disease), stage III N18.3 Leukocytosis D72.829 Diabetes mellitus E11.9 Hypothyroidism E03.9 Dyslipidemia E78.5 Hyperuricemia E79.0 Hypertension I10 Epistaxis R04.0 Oral candidiasis B37.0
[2020-12-20] MEDS: NYSTATIN SUSP 500,000 U/5 ML UDC PO SCH ×2 (18:50→20:20)
[2020-12-21] MEDS: PIPERACILLIN/TAZOBACTAM 4.5 GM in DEXTROSE 5% 100 ML IV SCH ×4 (00:50→23:35)
[2020-12-21] MEDS: LEVOTHYROXINE SODIUM 100 MCG TABLET PO SCH (05:41)
[2020-12-21] MEDS: ALBUT/IPRATROP 3MG/0.5MG NEB 3 ML VIAL NEB SCH (07:35)
[2020-12-21 07:45] LABS: Basophils # (auto) 0.01 K/uL (0-0.2); Basophils % (auto) 0.1 %; Eosinophils # (auto) 0.68 K/uL (0-0.5); Eosinophils % (auto) 6.8 %; Hematocrit (blood only) 42.9 % (42-52); Hemoglobin 13.7 g/dL (14.0-18.0); Immature Granulocytes # (auto) 0.03 K/uL (0.00-0.02); Immature Granulocytes % (auto) 0.3 %; Lymphocytes # (auto) 1.19 K/uL (1.2-3.4); Mean Corpuscular Hemoglobin 31.6 pg (25-34); Mean Corpuscular Hgb Conc 31.9 g/dL (32-36); Mean Corpuscular Volume 98.8 fL (80-100); Mean Platelet Volume 10.2 fL (7.4-10.4); Monocytes # (auto) 0.32 K/uL (0.11-0.59); Monocytes % (auto) 3.2 %; Neutrophils # (auto) 7.71 K/uL (1.4-6.5); Neutrophils % (auto) 77.6 %; Platelet Count 218 K/uL (130-400); RDW Coefficient of Variation 13.3 % (11.5-14.5); RDW Standard Deviation 48.2 fL (36.4-46.3); Red Blood Count 4.34 M/uL (4.7-6.1); White Blood Count 9.94 K/uL (4.8-10.8)
[2020-12-21 08:24] LABS: Albumin Level 1.6 gm/dl (3.4-5.0); BUN Creatinine Ratio 17.8 (10-20); C Reactive Protein 9.2 mg/dl (0-0.29); Calcium 8.4 mg/dl (8.5-10.1); Creatinine Clr Calc Pharmacy 38.6 ml/min; Est GFR (African American) 39.9 ml/min; Est GFR (Non-African American) 34.4 ml/min; Magnesium 2.4 mg/dl (1.8-2.4); Potassium 4.2 mmol/L (3.5-5.1)
[2020-12-21 08:39] LABS: Albumin Globulin Ratio 0.3 (0.9-2); Bilirubin,Total 1.4 mg/dl (0.2-1); Globulin 4.8 gm/dl (2.5-4.0); Phosphorus 3.7 mg/dl (2.5-4.9); Total Protein 6.4 gm/dl (6.4-8.2)
[2020-12-21] MEDS: ASPIRIN 81 MG ECTAB PO SCH (08:49)
[2020-12-21] MEDS: ATORVASTATIN 40 MG TAB PO SCH (08:49)
[2020-12-21] MEDS: DOCUSATE SODIUM/SENNA 50/8.6MG TAB PO SCH (08:49)
[2020-12-21] MEDS: guaiFENesin 600 MG TABCR PO SCH ×2 (08:49→20:55)
[2020-12-21] MEDS: ASCORBIC ACID 500 MG TAB PO SCH (08:49)
[2020-12-21] MEDS: allopurinoL 100 MG TAB PO SCH (08:50)
[2020-12-21] MEDS: ZINC SULFATE 220 MG CAPSULE PO SCH (08:50)
[2020-12-21] MEDS: NYSTATIN SUSP 500,000 U/5 ML UDC PO SCH ×4 (08:50→20:55)
[2020-12-21] MEDS: ENOXAPARIN INJ 40 MG/0.4 ML SYR SQ SCH ×2 (08:51→20:55)
[2020-12-21] MEDS: SODIUM CHLORIDE 0.65% NA SOLN 45 ML (OCEAN) PRN (08:51)
[2020-12-21] MEDS: INSULIN GLARGINE SOLOSTAR 100 UNITS/ML 3 ML PEN SC SCH (09:13)
[2020-12-21] MEDS: INSULIN ASPART 100 UNITS/ML 3 ML PEN SC SCH ×4 (09:13→20:50)
--- NOTE | 2020-12-21 09:55 | Hospitalist Progress Note ---
Date of Service December 21, 2020 Assessment & Plan (1) COVID-19: Plan: 75yo male with history of DM, HTN, CKD-III presenting with Covid-19, hypoxia 88% on RA in ED. Patient is fully vaccinated against Covid (Pfizer-May) exposed to Covid-19 at a wedding 1 week [employer], Symptoms onset 12/02/11 Was not candidate for Tocilizumab (CRP downtrending and outside of window to give from symptoms onset) Completed 5 days Remdesivir on 12/12 Completed 10 days of dexamethasone Has been receiving lasix daily prn to keep negative fluid balance-will not give any today as renal function is worsening Completed full course of empiric abx therapy (rocephin/azithromycin) earlier in the course of hospitalization Initially requiring 3L O2 [place] hospital day #2-3, needing 5L but was stable 12/12 (days #12 of viral course)--> Acute hypoxemic respiratory failure (sats 70-80's)-- needed 10L oxymask for sats to recover Was continuing to improve, and was weaned down to 7 L oxygen mask on 12/15, however on 12/16 he was having epistaxis which then caused difficulty breathing through his nose and had to be placed back on oxygen mask at 10 L to recover On 12/17 was requiring 15 L oxygen mask to keep pulse ox greater than 88% and was placed on high flow nasal cannula at 40 L and 85% FiO2 Chest x-ray on 12/17 with progressed bilateral infiltrates On 12/18, requiring 50L and 85-90% FiO2, however as long as he lies on his side, his POx is 95-97%. Sats drop immediately with sitting up or any movement. On 12/19, still requiring 50 L but weaned down to 75% FiO2, with suspected secondary bacterial pneumonia given continued productive sputum, elevated procalcitonin of 2.8, CRP continues to go up to 16, persistent leukocytosis. Is afebrile. On 12/20-was weaned down to 6 L nasal cannula earlier in the day, but had severe desaturation to the mid 70s with getting to bedside commode-placed back on high flow nasal cannula 12/21 - stable on 30L and 40% FiO2, might be able to go back to nasal canula today, very tenuous, might need rehab when he is medically stable -continue IV Zosyn, started 12/19, for coverage for gram-negative pneumonia, complete 7 days, today is day 3 - CRP down to 9 - MRSA swab negative-no need for vancomycin -Continue to wean down supplemental O2 as needed, use nasal saline and Afrin as needed for epistaxis. 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 with breathing, may require oxygen chronically will need pulmonology follow up (2) Acute respiratory failure with hypoxia: Plan: difficult time weaning down oxygen requirements currently on 30L and 40% FiO2 was on 6L yesterday but getting to bedside commode caused him to desaturate to 70's and could not recover with deep breathing slowly wean back oxygen, suspect he will need oxygen on discharge as well as pulmonary follow up CXR tomorrow (3) CKD (chronic kidney disease), stage III: Plan: Patient with history of CKD II presenting with BETTE Possibly secondary to pre- renal azotemia, patient reported poor oral intake upfront did receive 2L IVF upfront (NV/D upfront with poor oral intake) renal function fairly stable, Cr is 1.7-1.9 past few days hold lasix today Follow BMP (4) Leukocytosis: Plan: likely steroid induced, however persisted despite discontinuation of steroids for many days-possibly due to a bacterial secondary pneumonia Likely with secondary bacterial pneumonia as above WBC down to 9k today, no fever continue Zosyn, day 3 (5) Diabetes mellitus: Plan: Glimepiride and Metformin currently on hold Developed hypoglycemia for couple of days and insulin doses were decreased Dexamethasone course is now complete With hypoglycemia again in the afternoon of 12/17 have further reduced Lantus down to 8 units once daily and now improved, no further hypoglycemia Continue NovoLog sliding scale (6) Hypothyroidism: Plan: Chronic, TSH normal earlier in 2020 -Continue Synthroid 100mcg po daily (7) Dyslipidemia: Plan: Chronic -Continue Atorvastatin 40 mg po daily (8) Hyperuricemia: Plan: Chronic -Continue Allopurinol daily - decreased dose to 200mg po daily for renal function (9) Hypertension: Plan: Blood pressure acceptable - lisinopril initially held with A/CKD. - was then resumed with improved renal function -Continue to hold lisinopril given marginal hypotension while diuresing (10) Epistaxis: Plan: Secondary to nasal cannula supplemental oxygen drying out the nasal passages Advised saline nasal spray to be added on frequently throughout the day to moisturize the nose Afrin as needed for nosebleeds no further bleeding at this time (11) Oral candidiasis: Plan: Started nystatin swish and swallow on 12/20 x 10-day course still has some pain in throat but better Plan: DVT prophylaxis-Lovenox 40 mg SQ twice daily, and pt definitely agreeable to taking Xarelto 10mg daily x 35 days after discharge for prolonged VTE prophylaxis Disposition-continued stay on telemetry status, expect at least 4-5 more days of hospitalization Admission and Anticipated Discharge Date Admission Date: December 06, 2020 Subjective patient laying in bed, currently he is on 30L and 40% FiO2, down from yesterday he said that yesterday just getting to the bedside commode made him desaturate for a long time he says he feels incredibly weak, has never been this sick before he has been in the hospital now for 2 weeks he is drinking liquids, says his throat hurts with the thrush he is asking about chcf effects from COVID, told him we can get him pul monology follow up will likely have fibrosis, scarring of lungs, might need terminal computer operator oxygen when all is said and done encouraged him to stay strong, he is slowly improving, I know it is not as fast as he would like will need to get PT/OT to see him, anticipate he may need to go to [facility] after this due to muscle atrophy, has been in bed for the past week Review of Systems Review of Systems: All systems reviewed & are unremarkable except as noted in Subjective Constitutional: + fatigue and + weakness; no fever Respiratory: + cough, + dyspnea and + dyspnea on exertion Cardiovascular: no chest pain and no edema Physical Exam Physical Exam: General: well developed, well nourished, no acute distress, ill appearing, frail appearing Neck: supple, trachea midline, normal thyroid Lungs: crackles in bases, slightly tachypneic, no accessory muscle use, no distress Heart: regular S1 and S2, no murmur, peripheral pulses normal, capillary refill normal, no edema Abdomen: soft, NT, ND, + BS, no hepatomegaly, normal to percussion Extremities: normal in appearance, no cyanosis, no petechiae, strength generally declined, very weak Neuro: awake, cooperative, moves all extremities, no focal motor deficits, CN II-XII intact, sensation in extremities intact, normal speech Skin: warm, dry, no rash, normal turgor Psych: Awake, alert oriented x 3, depressed affect Results & Data Results & Data ([facility]) Vital Signs (Past 12 Hours) Vital Signs Temp Pulse Resp BP BP Pulse Ox 12/21/20 07:35 76 20 94 12/21/20 07:33 36.4 C L 73 20 111/65 94 12/21/20 03:40 36.8 C 68 18 118/58 L 94 12/21/20 03:05 69 20 96 12/20/20 22:55 36.8 C 77 21 129/67 95 12/20/20 22:50 85 22 94 Laboratory Results Laboratory Results - last 24 hr 12/20/20 12/20/20 12/20/20 11:18 16:38 20:04 WBC RBC Hgb Hct MCV MCH MCHC RDW Std Deviation RDW Coeff of Donna Plt Count MPV Immature Gran % (Auto) Neut % (Auto) Lymph % (Auto) [place] % (Auto) Eos % (Auto) Baso % (Auto) Neut # (Auto) Lymph # (Auto) [place] # (Auto) Eos # (Auto) Baso # (Auto) Immature Gran # (Auto) Sodium Potassium Chloride Carbon Dioxide Anion Gap BUN Creatinine Est Cr Clr Drug Dosing Est GFR ( Amer) Est GFR (Non-Af Amer) BUN/Creatinine Ratio Glucose POC Glucose 172 H 153 H 196 H Calcium Phosphorus Magnesium Total Bilirubin AST ALT Alkaline Phosphatase C-Reactive Protein Total Protein Albumin Globulin Albumin/Globulin Ratio 12/21/20 12/21/20 12/21/20 07:08 07:15 07:31 WBC 9.94 RBC 4.34 L Hgb 13.7 L Hct 42.9 MCV 98.8 MCH 31.6 MCHC 31.9 L RDW Std Deviation 48.2 H RDW Coeff of Donna 13.3 Plt Count 218 MPV 10.2 Immature Gran % (Auto) 0.3 Neut % (Auto) 77.6 Lymph % (Auto) 12.0 [place] % (Auto) 3.2 Eos % (Auto) 6.8 Baso % (Auto) 0.1 Neut # (Auto) 7.71 H Lymph # (Auto) 1.19 L [place] # (Auto) 0.32 Eos # (Auto) 0.68 H Baso # (Auto) 0.01 Immature Gran # (Auto) 0.03 H Sodium 136 Potassium 4.2 Chloride 103 Carbon Dioxide 26 Anion Gap 7.0 BUN 33 H Creatinine 1.87 H Est Cr Clr Drug Dosing 38.6 Est GFR ( Amer) 39.9 Est GFR (Non-Af Amer) 34.4 BUN/Creatinine Ratio 17.8 Glucose 188 H POC Glucose 160 H Calcium 8.4 L Phosphorus 3.7 Magnesium 2.4 Total Bilirubin 1.4 H AST 34 ALT 38 Alkaline Phosphatase 80 C-Reactive Protein 9.20 H Total Protein 6.4 Albumin 1.6 L Globulin 4.8 H Albumin/Globulin Ratio 0.3 L Medications Administered Current Inpatient Medications Acetaminophen (Acetaminophen 325 Mg Tab) 650 mg PO Q4H PRN PRN Reason: pain or fever Stop: 01/05/21 11:23 Albuterol (Albuterol Hfa 8 Gm Inhaler) 2 puffs INH Q4R PRN PRN Reason: Shortness Of Breath Or Wheezing Stop: 01/05/21 11:23 Last Admin: 12/13/20 07:24 Dose: 2 puffs Documented by: Albuterol (Albut/Ipratrop 3mg/0.5mg Neb 3 Ml Vial) 3 ml NEB Q2R PRN PRN Reason: Shortness Of Breath Or Wheezing Stop: 01/16/21 08:11 Allopurinol (Allopurinol 100 Mg Tab) 200 mg PO DAILY [facility] Stop: 01/05/21 11:23 Last Admin: 12/21/20 08:50 Dose: 200 mg Documented by: Ascorbic Acid (Ascorbic Acid 500 Mg Tab) 500 mg PO QAM [facility] Stop: 01/07/21 08:59 Last Admin: 12/21/20 08:49 Dose: 500 mg Documented by: Aspirin (Aspirin 81 Mg Ectab) 81 mg PO DAILY [facility] Stop: 01/05/21 11:23 Last Admin: 12/21/20 08:49 Dose: 81 mg Documented by: Atorvastatin Calcium (Atorvastatin 40 Mg Tab) 40 mg PO DAILY [facility] Stop: 01/05/21 11:23 Last Admin: 12/21/20 08:49 Dose: 40 mg Documented by: Benzonatate (Benzonatate 100 Mg Capsule) 100 mg PO TID PRN PRN Reason: cough Stop: 01/06/21 13:59 Dextrose (Dextrose 50% 50 Ml Syringe) 25 - 50 ml IV UD PRN; Protocol PRN Reason: Hypoglycemia Protocol Stop: 01/05/21 11:23 Enoxaparin Sodium (Enoxaparin Inj 40 Mg/0.4 Ml Syr) 40 mg SQ BID [facility] Stop: 01/12/21 20:59 Last Admin: 12/21/20 08:51 Dose: 40 mg Documented by: Glucagon (Glucagon For Inj 1 Mg Vial) 1 mg SQ UD PRN; Protocol PRN Reason: Hypoglycemia Protocol Stop: 01/05/21 11:23 Glucose (Glucose 10 Tabs/Tube) 4 - 8 tabs PO UD PRN; Protocol PRN Reason: Hypoglycemia Protocol Stop: 01/05/21 11:23 Glucose (Glucose 40% Gel 15 Gm Tube) 15 - 30 gm PO UD PRN; Protocol PRN Reason: Hypoglycemia Protocol Stop: 01/05/21 11:23 Guaifenesin (Guaifenesin 600 Mg Tabcr) 600 mg PO Q12 [facility] Stop: 01/06/21 20:59 Last Admin: 12/21/20 08:49 Dose: 600 mg Documented by: Piperacillin Sod/Tazobactam (Sod 4.5 gm/ Dextrose) 120 mls @ 30 mls/hr IV Q8H [facility]; Protocol Stop: 12/26/20 15:59 Last Admin: 12/21/20 08:48 Dose: 30 mls/hr Documented by: Insulin Aspart (Insulin Aspart 100 Units/Ml 3 Ml Pen) 0 units SC ACHS [facility] Stop: 01/05/21 11:23 Last Admin: 12/21/20 09:13 Dose: 1 units Documented by: Insulin Glargine (Insulin Glargine Solostar 100 Units/Ml 3 Ml Pen) 8 units SC QAM [facility] Stop: 01/17/21 08:59 Last Admin: 12/21/20 09:13 Dose: 8 units Documented by: Levothyroxine Sodium (Levothyroxine Sodium 100 Mcg Tablet) 100 mcg PO DAILYBB [facility] Stop: 01/05/21 11:23 Last Admin: 12/21/20 05:41 Dose: 100 mcg Documented by: Miscellaneous (Carbohydrates For Hypoglycemia ) 15 - 30 gm PO UD PRN PRN Reason: Hypoglycemia Protocol Stop: 01/05/21 11:23 Last Admin: 12/17/20 16:45 Dose: 15 gm Documented by: Miscellaneous Information (Piperacill/Tazobac Consult Active) 1 ea N/A UD PRN PRN Reason: Consult Stop: 01/18/21 11:04 Nystatin (Nystatin Susp 500,000 U/5 Ml Udc) 5 ml PO QID [facility] Stop: 12/30/20 17:59 Last Admin: 12/21/20 08:50 Dose: 5 ml Documented by: Ondansetron HCl (Ondansetron Inj 2 Mg/Ml 2 Ml Vial) 4 mg IV Q6H PRN PRN Reason: Nausea Stop: 01/05/21 11:23 Oxymetazoline HCl (Oxymetazoline 0.05% 30 Ml Btl) 1 sprays NA Q12 PRN PRN Reason: nasal congestion Stop: 01/13/21 09:44 Last Admin: 12/19/20 09:28 Dose: 1 sprays Documented by: Senna/Docusate Sodium (Docusate Sodium/Senna 50/8.6mg Tab) 1 tab PO QAM [facility] Stop: 01/17/21 15:59 Last Admin: 12/21/20 08:49 Dose: 1 tab Documented by: Sodium Chloride (Sodium Chloride 0.65% Na Soln 45 Ml ([place])) 2 sprays NA Q2HWA PRN PRN Reason: Congestion Stop: 01/15/21 16:47 Last Admin: 12/21/20 08:51 Dose: 2 sprays Documented by: Zinc Sulfate (Zinc Sulfate 220 Mg Capsule) 220 mg PO QAM [facility] Stop: 01/07/21 08:59 Last Admin: 12/21/20 08:50 Dose: 220 mg Documented by: PG Care Time/CCT Total # of Minutes Spent Total Time Spent with Patient: Total time spent is greater than 50% in coordination of care (as documented) at patient's floor/unit and/or counseling patient: Coding Level of Care Code 66219 Subseq Hosp Care Lvl 3 Diagnoses COVID-19 U07.1 CKD (chronic kidney disease), stage III N18.3 Leukocytosis D72.829 Diabetes mellitus E11.9 Hypothyroidism E03.9 Dyslipidemia E78.5 Hyperuricemia E79.0 Hypertension I10 Epistaxis R04.0 Oral candidiasis B37.0 Acute respiratory failure with hypoxia J96.01
[2020-12-22] MEDS: LEVOTHYROXINE SODIUM 100 MCG TABLET PO SCH (05:58)
[2020-12-22] MEDS: PIPERACILLIN/TAZOBACTAM 4.5 GM in DEXTROSE 5% 100 ML IV SCH ×3 (09:35→23:56)
[2020-12-22] MEDS: ZINC SULFATE 220 MG CAPSULE PO SCH (09:36)
[2020-12-22] MEDS: guaiFENesin 600 MG TABCR PO SCH ×2 (09:36→19:59)
[2020-12-22] MEDS: ATORVASTATIN 40 MG TAB PO SCH (09:37)
[2020-12-22] MEDS: ASCORBIC ACID 500 MG TAB PO SCH (09:38)
[2020-12-22] MEDS: ASPIRIN 81 MG ECTAB PO SCH (09:38)
[2020-12-22] MEDS: allopurinoL 100 MG TAB PO SCH (09:38)
[2020-12-22] MEDS: INSULIN GLARGINE SOLOSTAR 100 UNITS/ML 3 ML PEN SC SCH (09:40)
[2020-12-22] MEDS: INSULIN ASPART 100 UNITS/ML 3 ML PEN SC SCH ×4 (09:43→20:40)
[2020-12-22] MEDS: ENOXAPARIN INJ 40 MG/0.4 ML SYR SQ SCH ×2 (09:43→19:59)
[2020-12-22] MEDS: NYSTATIN SUSP 500,000 U/5 ML UDC PO SCH ×4 (09:46→19:59)
--- NOTE | 2020-12-22 10:58 | Hospitalist Progress Note ---
Date of Service December 22, 2020 Assessment & Plan (1) COVID-19: Plan: 75yo male with history of DM, HTN, CKD-III presenting with Covid-19, hypoxia 88% on RA in ED. Patient is fully vaccinated against Covid (Pfizer-May) exposed to Covid-19 at a wedding 1 week [employer], Symptoms onset 12/02/11 Was not candidate for Tocilizumab (CRP downtrending and outside of window to give from symptoms onset) Completed 5 days Remdesivir on 12/12 Completed 10 days of dexamethasone Has been receiving lasix daily prn to keep negative fluid balance-will not give any today as renal function is worsening Completed full course of empiric abx therapy (rocephin/azithromycin) earlier in the course of hospitalization [facility], needing 5L but was stable 12/12 (days #12 of viral course)--> Acute hypoxemic respiratory failure (sats 70-80's)-- needed 10L oxymask for sats to recover Was continuing to improve, and was weaned down to 7 L oxygen mask on 12/15, however on 12/16 he was having epistaxis which then caused difficulty breathing through his nose and had to be placed back on oxygen mask at 10 L to recover On 12/17 was requiring 15 L oxygen mask to keep pulse ox greater than 88% and was placed on high flow nasal cannula at 40 L and 85% FiO2 Chest x-ray on 12/17 with progressed bilateral infiltrates On 12/18, requiring 50L and 85-90% FiO2, however as long as he lies on his side, his POx is 95-97%. Sats drop immediately with sitting up or any movement. On 12/19, still requiring 50 L but weaned down to 75% FiO2, with suspected secondary bacterial pneumonia given continued productive sputum, elevated procalcitonin of 2.8, CRP continues to go up to 16, persistent leukocytosis. Is afebrile. On 12/20-was weaned down to 6 L nasal cannula earlier in the day, but had severe desaturation to the mid 70s with getting to bedside commode-placed back on high flow nasal cannula 12/21 - initially on 30L and 40% FiO2, got him down to 6L wall high flow in the afternoon/evening, no distress 12/22 - stable on 6L mask, OOB in the chair CXR today with improved aeration in bases, less infiltrates -continue IV Zosyn, started 12/19, for coverage for gram-negative pneumonia, complete 7 days, today is day 4 - CRP down to 9 on 12/21 - MRSA swab negative-no need for vancomycin -Continue to wean down supplemental O2 as needed, use nasal saline and Afrin as needed for epistaxis. -Encouraged use of IS and flutter valve -Continue proning or side sleeping as able to goal is to discharge him by the end of the week, wean down oxygen suspect he will have tank terminal gauger issues with breathing, may require oxygen chronically will need pulmonology follow up check CRP, BMP tomorrow (2) Acute respiratory failure with hypoxia: Plan: difficult time weaning down oxygen requirements big improvement over past 48 hours, down to 4-6L wall high flow from V[facility] slowly wean back oxygen, suspect he will need oxygen on discharge as well as pulmonary follow up CXR today with improved aeration, less infiltrates based on my read (3) CKD (chronic kidney disease), stage III: Plan: Patient with history of CKD II presenting with BETTE Possibly secondary to pre- renal azotemia, patient reported poor oral intake upfront did receive 2L IVF upfront (NV/D upfront with poor oral intake) renal function fairly stable, Cr is 1.7-1.9 past few days BMP tomorrow (4) Leukocytosis: Plan: likely steroid induced, however persisted despite discontinuation of steroids for many days-possibly due to a bacterial secondary pneumonia Likely with secondary bacterial pneumonia as above WBC down to 9k 12/21, no fever continue Zosyn, day 4 (5) Diabetes mellitus: Plan: Glimepiride and Metformin currently on hold Developed hypoglycemia for couple of days and insulin doses were decreased Dexamethasone course is now complete With hypoglycemia again in the afternoon of 12/17 have further reduced Lantus down to 8 units once daily and now improved, continue to monitor closely for hypoglycemia Continue NovoLog sliding scale (6) Hypothyroidism: Plan: Chronic, TSH normal earlier in 2020 -Continue Synthroid 100mcg po daily (7) Dyslipidemia: Plan: Chronic -Continue Atorvastatin 40 mg po daily (8) Hyperuricemia: Plan: Chronic -Continue Allopurinol daily - decreased dose to 200mg po daily for renal function (9) Hypertension: Plan: Blood pressure acceptable - lisinopril initially held with A/CKD. - was then resumed with improved renal function -Continue to hold lisinopril given marginal hypotension while diuresing (10) Epistaxis: Plan: Secondary to nasal cannula supplemental oxygen drying out the nasal passages Advised saline nasal spray to be added on frequently throughout the day to moisturize the nose Afrin as needed for nosebleeds no further bleeding at this time (11) Oral candidiasis: Plan: Started nystatin swish and swallow on 12/20 x 10-day course still has some pain in throat but better Plan: DVT prophylaxis-Lovenox 40 mg SQ twice daily, and pt definitely agreeable to taking Xarelto 10mg daily x 35 days after discharge for prolonged VTE prophylaxis Disposition-continued stay on telemetry status, hope to discharge by the end of the week Admission and Anticipated Discharge Date Admission Date: December 06, 2020 Subjective patient in better spirits today, sitting OOB in a chair, on 6L mask, no distress he still appears fatigued but has a little more energy today, more optimistic eating well, says he needs more to eat if possible no chest pain, minimal cough, no nausea/vomiting, no diarrhea this morning discussed that his CXR looks improved, this is a good sign he hopes to get out of the hospital by the weekend, discussed that this could be a real possibility now will check labs tomorrow Review of Systems Review of Systems: All systems reviewed & are unremarkable except as noted in Subjective Constitutional: + fatigue and + weakness; no fever Respiratory: + cough, + dyspnea and + dyspnea on exertion Physical Exam Physical Exam: General: well developed, well nourished, no acute distress, ill appearing, frail appearing Neck: supple, trachea midline, normal thyroid Lungs: crackles in bases, slightly tachypneic, no accessory muscle use, no distress Heart: regular S1 and S2, no murmur, peripheral pulses normal, capillary refill normal, no edema Abdomen: soft, NT, ND, + BS, no hepatomegaly, normal to percussion Extremities: normal in appearance, no cyanosis, no petechiae, strength generally declined, very weak Neuro: awake, cooperative, moves all extremities, no focal motor deficits, CN II-XII intact, sensation in extremities intact, normal speech Skin: warm, dry, no rash, normal turgor Psych: Awake, alert oriented x 3, depressed affect Results & Data Results & Data ([facility]) Vital Signs (Past 12 Hours) Vital Signs Temp Pulse Pulse Resp BP BP Pulse Ox 12/22/20 09:26 60 12/22/20 07:41 36.4 C L 80 20 125/61 91 12/22/20 04:21 36.9 C 95 H 16 132/71 95 12/22/20 01:54 70 12/21/20 23:29 37.3 C 70 16 127/74 95 Laboratory Results Laboratory Results - last 24 hr 12/21/20 12/21/20 12/21/20 11:21 16:19 20:33 POC Glucose 206 H 164 H 114 H 12/22/20 07:39 POC Glucose 140 H Medications Administered Current Inpatient Medications Acetaminophen (Acetaminophen 325 Mg Tab) 650 mg PO Q4H PRN PRN Reason: pain or fever Stop: 01/05/21 11:23 Albuterol (Albuterol Hfa 8 Gm Inhaler) 2 puffs INH Q4R PRN PRN Reason: Shortness Of Breath Or Wheezing Stop: 01/05/21 11:23 Last Admin: 12/13/20 07:24 Dose: 2 puffs Documented by: Albuterol (Albut/Ipratrop 3mg/0.5mg Neb 3 Ml Vial) 3 ml NEB Q2R PRN PRN Reason: Shortness Of Breath Or Wheezing Stop: 01/16/21 08:11 Allopurinol (Allopurinol 100 Mg Tab) 200 mg PO DAILY [facility] Stop: 01/05/21 11:23 Last Admin: 12/22/20 09:38 Dose: 200 mg Documented by: Ascorbic Acid (Ascorbic Acid 500 Mg Tab) 500 mg PO QAM [facility] Stop: 01/07/21 08:59 Last Admin: 12/22/20 09:38 Dose: 500 mg Documented by: Aspirin (Aspirin 81 Mg Ectab) 81 mg PO DAILY [facility] Stop: 01/05/21 11:23 Last Admin: 12/22/20 09:38 Dose: 81 mg Documented by: Atorvastatin Calcium (Atorvastatin 40 Mg Tab) 40 mg PO DAILY [facility] Stop: 01/05/21 11:23 Last Admin: 12/22/20 09:37 Dose: 40 mg Documented by: Benzonatate (Benzonatate 100 Mg Capsule) 100 mg PO TID PRN PRN Reason: cough Stop: 01/06/21 13:59 Dextrose (Dextrose 50% 50 Ml Syringe) 25 - 50 ml IV UD PRN; Protocol PRN Reason: Hypoglycemia Protocol Stop: 01/05/21 11:23 Enoxaparin Sodium (Enoxaparin Inj 40 Mg/0.4 Ml Syr) 40 mg SQ BID [facility] Stop: 01/12/21 20:59 Last Admin: 12/22/20 09:43 Dose: 40 mg Documented by: Glucagon (Glucagon For Inj 1 Mg Vial) 1 mg SQ UD PRN; Protocol PRN Reason: Hypoglycemia Protocol Stop: 01/05/21 11:23 Glucose (Glucose 10 Tabs/Tube) 4 - 8 tabs PO UD PRN; Protocol PRN Reason: Hypoglycemia Protocol Stop: 01/05/21 11:23 Glucose (Glucose 40% Gel 15 Gm Tube) 15 - 30 gm PO UD PRN; Protocol PRN Reason: Hypoglycemia Protocol Stop: 01/05/21 11:23 Guaifenesin (Guaifenesin 600 Mg Tabcr) 600 mg PO Q12 [facility] Stop: 01/06/21 20:59 Last Admin: 12/22/20 09:36 Dose: 600 mg Documented by: Piperacillin Sod/Tazobactam (Sod 4.5 gm/ Dextrose) 120 mls @ 30 mls/hr IV Q8H [facility]; Protocol Stop: 12/26/20 15:59 Last Admin: 12/22/20 09:35 Dose: 30 mls/hr Documented by: Insulin Aspart (Insulin Aspart 100 Units/Ml 3 Ml Pen) 0 units SC ACHS [facility] Stop: 01/05/21 11:23 Last Admin: 12/22/20 09:43 Dose: 1 units Documented by: Insulin Glargine (Insulin Glargine Solostar 100 Units/Ml 3 Ml Pen) 8 units SC QAM [facility] Stop: 01/17/21 08:59 Last Admin: 12/22/20 09:40 Dose: 8 units Documented by: Levothyroxine Sodium (Levothyroxine Sodium 100 Mcg Tablet) 100 mcg PO DAILYBB [facility] Stop: 01/05/21 11:23 Last Admin: 12/22/20 05:58 Dose: 100 mcg Documented by: Miscellaneous (Carbohydrates For Hypoglycemia ) 15 - 30 gm PO UD PRN PRN Reason: Hypoglycemia Protocol Stop: 01/05/21 11:23 Last Admin: 12/17/20 16:45 Dose: 15 gm Documented by: Miscellaneous Information (Piperacill/Tazobac Consult Active) 1 ea N/A UD PRN PRN Reason: Consult Stop: 01/18/21 11:04 Nystatin (Nystatin Susp 500,000 U/5 Ml Udc) 5 ml PO QID [facility] Stop: 12/30/20 17:59 Last Admin: 12/22/20 09:46 Dose: 5 ml Documented by: Ondansetron HCl (Ondansetron Inj 2 Mg/Ml 2 Ml Vial) 4 mg IV Q6H PRN PRN Reason: Nausea Stop: 01/05/21 11:23 Oxymetazoline HCl (Oxymetazoline 0.05% 30 Ml Btl) 1 sprays NA Q12 PRN PRN Reason: nasal congestion Stop: 01/13/21 09:44 Last Admin: 12/19/20 09:28 Dose: 1 sprays Documented by: Sodium Chloride (Sodium Chloride 0.65% Na Soln 45 Ml ([place])) 2 sprays NA Q2HWA PRN PRN Reason: Congestion Stop: 01/15/21 16:47 Last Admin: 12/21/20 08:51 Dose: 2 sprays Documented by: Zinc Sulfate (Zinc Sulfate 220 Mg Capsule) 220 mg PO QAM [facility] Stop: 01/07/21 08:59 Last Admin: 12/22/20 09:36 Dose: 220 mg Documented by: PG Care Time/CCT Total # of Minutes Spent Total Time Spent with Patient: Total time spent is greater than 50% in coordination of care (as documented) at patient's floor/unit and/or counseling patient: Coding Level of Care Code 21005 Subseq Hosp Care Lvl 2 Diagnoses COVID-19 U07.1 Acute respiratory failure with hypoxia J96.01 CKD (chronic kidney disease), stage III N18.3 Leukocytosis D72.829 Diabetes mellitus E11.9 Hypothyroidism E03.9 Dyslipidemia E78.5 Hyperuricemia E79.0 Hypertension I10 Epistaxis R04.0 Oral candidiasis B37.0
--- NOTE | 2020-12-22 11:04 | XRay Report ---
XR chest 1V portable CLINICAL HISTORY: COVID pneumonia COMPARISON STUDY: December 17, 2020 FINDINGS: No pneumothorax. Mild interval improvement of silhouetting of bilateral hemidiaphragms might represent improvement of previously seen pleural effusion or this appearance could be due to improved aeration of bilateral lo wer lungs. Patchy airspace opacities are again seen bilaterally, slightly improved since prior. Cardiomediastinal silhouette is within normal limits in size. No significant pulmonary vascular congestion.. Osseous structures: Degenerative changes of the spine. IMPRESSION: 1. Mild interval improvement of multifocal pneumonia. Interval improvement of aeration at bilateral lower lungs, possible bilateral pleural effusion which is improved since prior. ACT 112: Negative or not required by law. The above report was generated using voice recognition software. It may contain grammatical, syntax o r spelling errors. Electronically signed by: Ailyn Arambula DO 12/22/2020 11:03 AM
[2020-12-23] MEDS: LEVOTHYROXINE SODIUM 100 MCG TABLET PO SCH (05:59)
[2020-12-23 08:26] LABS: BUN Creatinine Ratio 16.6 (10-20); Calcium 8.5 mg/dl (8.5-10.1); Creatinine Clr Calc Pharmacy 38.2 ml/min; Est GFR (African American) 39.1 ml/min; Est GFR (Non-African American) 33.7 ml/min; Potassium 3.9 mmol/L (3.5-5.1)
[2020-12-23] MEDS: ASPIRIN 81 MG ECTAB PO SCH (08:47)
[2020-12-23] MEDS: allopurinoL 100 MG TAB PO SCH (08:47)
[2020-12-23] MEDS: ASCORBIC ACID 500 MG TAB PO SCH (08:47)
[2020-12-23] MEDS: ATORVASTATIN 40 MG TAB PO SCH (08:48)
[2020-12-23] MEDS: guaiFENesin 600 MG TABCR PO SCH (08:48)
[2020-12-23] MEDS: ENOXAPARIN INJ 40 MG/0.4 ML SYR SQ SCH ×2 (08:48→21:05)
[2020-12-23] MEDS: INSULIN GLARGINE SOLOSTAR 100 UNITS/ML 3 ML PEN SC SCH (08:49)
[2020-12-23] MEDS: INSULIN ASPART 100 UNITS/ML 3 ML PEN SC SCH ×4 (08:49→21:59)
[2020-12-23] MEDS: ZINC SULFATE 220 MG CAPSULE PO SCH (08:50)
[2020-12-23] MEDS: NYSTATIN SUSP 500,000 U/5 ML UDC PO SCH ×4 (08:50→22:02)
[2020-12-23] MEDS: PIPERACILLIN/TAZOBACTAM 4.5 GM in DEXTROSE 5% 100 ML IV SCH ×2 (08:53→18:37)
[2020-12-23] MEDS ORDERED: FUROSEMIDE 40 MG in SYRINGE 0 ML IV ONE (09:45)
--- NOTE | 2020-12-23 09:49 | Hospitalist Progress Note ---
Date of Service December 23, 2020 Assessment & Plan (1) COVID-19: Plan: 75yo male with history of DM, HTN, CKD-III presenting with Covid-19, hypoxia 88% on RA in ED. Patient is fully vaccinated against Covid (Pfizer-May) exposed to Covid-19 at a wedding 1 week [employer], Symptoms onset 12/02/11 Was not candidate for Tocilizumab (CRP downtrending and outside of window to give from symptoms onset) Completed 5 days Remdesivir on 12/12 Completed 10 days of dexamethasone Has been receiving lasix daily prn to keep negative fluid balance-will not give any today as renal function is worsening Completed full course of empiric abx therapy (rocephin/azithromycin) earlier in the course of hospitalization Initially requiring 3L O2 [place] hospital day #2-3, needing 5L but was stable 12/12 (days #12 of viral course)--> Acute hypoxemic respiratory failure (sats 70-80's)-- needed 10L oxymask for sats to recover Was continuing to improve, and was weaned down to 7 L oxygen mask on 12/15, however on 12/16 he was having epistaxis which then caused difficulty breathing through his nose and had to be placed back on oxygen mask at 10 L to recover On 12/17 was requiring 15 L oxygen mask to keep pulse ox greater than 88% and was placed on high flow nasal cannula at 40 L and 85% FiO2 Chest x-ray on 12/17 with progressed bilateral infiltrates On 12/18, requiring 50L and 85-90% FiO2, however as long as he lies on his side, his POx is 95-97%. Sats drop immediately with sitting up or any movement. On 12/19, still requiring 50 L but weaned down to 75% FiO2, with suspected secondary bacterial pneumonia given continued productive sputum, elevated procalcitonin of 2.8, CRP continues to go up to 16, persistent leukocytosis. Is afebrile. On 12/20-was weaned down to 6 L nasal cannula earlier in the day, but had severe desaturation to the mid 70s with getting to bedside commode-placed back on high flow nasal cannula 12/21 - initially on 30L and 40% FiO2, got him down to 6L wall high flow in the afternoon/evening, no distress 12/22 and 12/23 - stable on 4-5L mask, OOB in the chair CXR 12/22 with improved aeration in bases, less infiltrates give Lasix 40mg IV today, 12/23 -continue IV Zosyn, started 12/19, for coverage for gram-negative pneumonia, complete 7 days, today is day 5 - CRP down to 9 on 12/21 - MRSA swab negative-no need for vancomycin -Continue to wean down supplemental O2 as needed, use nasal saline and Afrin as needed for epistaxis. -Encouraged use of IS and flutter valve -Continue proning or side sleeping as able to goal is to discharge him by the end of the week, wean down oxygen suspect he will have mcfp issues with breathing, may require oxygen ch ronically will need pulmonology follow up (2) Acute respiratory failure with hypoxia: Plan: difficult time weaning down oxygen requirements big improvement over past 72 hours, down to 4-5L wall high flow from [employer] slowly wean back oxygen, suspect he will need oxygen on discharge as well as pulmonary follow up CXR 12/23 with improved aeration, less infiltrates (3) CKD (chronic kidney disease), stage III: Plan: Patient with history of CKD II presenting with BETTE Possibly secondary to pre- renal azotemia, patient reported poor oral intake upfront did receive 2L IVF upfront (NV/D upfront with poor oral intake) Cr is 1.9 today, BUN in 30's (was up to the 60's last week) will give Lasix 40mg IV x 1 now, neg fluid balance today is goal, appears a little volume overloaded (4) Leukocytosis: Plan: likely steroid induced, however persisted despite discontinuation of steroids for many days-possibly due to a bacterial secondary pneumonia Likely with secondary bacterial pneumonia as above WBC down to 9k 12/21, no fever continue Zosyn, day 5 (5) Diabetes mellitus: Plan: Glimepiride and Metformin currently on hold Developed hypoglycemia for couple of days and insulin doses were decreased Dexamethasone course is now complete With hypoglycemia again in the afternoon of 12/17 have further reduced Lantus down to 8 units once daily and now improved, continue to monitor closely for hypoglycemia Continue NovoLog sliding scale (6) Hypothyroidism: Plan: Chronic, TSH normal earlier in 2020 -Continue Synthroid 100mcg po daily (7) Dyslipidemia: Plan: Chronic -Continue Atorvastatin 40 mg po daily (8) Hyperuricemia: Plan: Chronic -Continue Allopurinol daily - decreased dose to 200mg po daily for renal funct ion (9) Hypertension: Plan: Blood pressure acceptable - lisinopril initially held with A/CKD. - was then resumed with improved renal function -Continue to hold lisinopril given marginal hypotension while diuresing (10) Epistaxis: Plan: Secondary to nasal cannula supplemental oxygen drying out the nasal passages Advised saline nasal spray to be added on frequently throughout the day to moisturize the nose Afrin as needed for nosebleeds no further bleeding at this time (11) Oral candidiasis: Plan: Started nystatin swish and swallow on 12/20 x 10-day course throat pain is a lot better today (12) Depressed affect: Plan: frustrated being here, feels like he is never getting home daily encouragement, speaking with him at the bedside, talking about things besides hospitalization encouraged him to take it one day at a time Plan: DVT prophylaxis-Lovenox 40 mg SQ twice daily, and pt definitely agreeable to taking Xarelto 10mg daily x 35 days after discharge for prolonged VTE prophylaxis Disposition-continued stay on telemetry status, hope to discharge by the end of the week Admission and Anticipated Discharge Date Admission Date: December 06, 2020 Subjective patient is a little down today, frustrated that he desaturates, assured him that this is completely normal, most patients do this lungs are fragile, still recovering he is stable on 5L this morning, no distress Cr is 1.9 which is his baseline, BUN 30's, will give Lasix 40mg IV x 1 as he appears volume overloaded eating well, wants to sit at the edge of the bed today, says the chair was not comfortable no BM this morning, no nausea, no fever, no chest pain mood is a little depressed but hanging in there Review of Systems Review of Systems: All systems reviewed & are unremarkable except as noted in Subjective Physical Exam Physical Exam: General: well developed, well nourished, no acute distress, ill appearing, frail appearing Neck: supple, trachea midline, normal thyroid Lungs: clear to auscultation bilaterally, normal effort, no accessory muscle use, no distress Heart: regular S1 and S2, no murmur, peripheral pulses normal, capillary refill normal, no edema Abdomen: soft, NT, ND, + BS, no hepatomegaly, normal to percussion Extremities: normal in appearance, no cyanosis, no petechiae, strength generally declined, very weak Neuro: awake, cooperative, moves all extremities, no focal motor deficits, CN II-XII intact, sensation in extremities intact, normal speech Skin: warm, dry, no rash, normal turgor Psych: Awake, alert oriented x 3, depressed affect Results & Data Results & Data ([facility]) Vital Signs (Past 12 Hours) Vital Signs Temp Pulse Pulse Resp BP BP Pulse Ox 12/23/20 07:37 36.3 C L 67 19 138/70 94 12/23/20 05:17 36.6 C 67 18 123/71 96 12/22/20 23:18 73 12/22/20 22:56 37.0 C 74 16 136/84 95 Laboratory Results Laboratory Results - last 24 hr 12/22/20 12/22/20 12/22/20 11:15 16:14 20:10 Sodium Potassium Chloride Carbon Dioxide Anion Gap BUN Creatinine Est Cr Clr Drug Dosing Est GFR ( Amer) Est GFR (Non-Af Amer) BUN/Creatinine Ratio Glucose POC Glucose 209 H 206 H 167 H Calcium 12/23/20 12/23/20 07:29 07:39 Sodium 135 L Potassium 3.9 Chloride 103 Carbon Dioxide 25 Anion Gap 7.0 BUN 32 H Creatinine 1.90 H Est Cr Clr Drug Dosing 38.2 Est GFR ( Amer) 39.1 Est GFR (Non-Af Amer) 33.7 BUN/Creatinine Ratio 16.6 Glucose 206 H POC Glucose 195 H Calcium 8.5 Medications Administered Current Inpatient Medications Acetaminophen (Acetaminophen 325 Mg Tab) 650 mg PO Q4H PRN PRN Reason: pain or fever Stop: 01/05/21 11:23 Albuterol (Albuterol Hfa 8 Gm Inhaler) 2 puffs INH Q4R PRN PRN Reason: Shortness Of Breath Or Wheezing Stop: 01/05/21 11:23 Last Admin: 12/13/20 07:24 Dose: 2 puffs Documented by: Albuterol (Albut/Ipratrop 3mg/0.5mg Neb 3 Ml Vial) 3 ml NEB Q2R PRN PRN Reason: Shortness Of Breath Or Wheezing Stop: 01/16/21 08:11 Allopurinol (Allopurinol 100 Mg Tab) 200 mg PO DAILY MARISOL Stop: 01/05/21 11:23 Last Admin: 12/23/20 08:47 Dose: 200 mg Documented by: Ascorbic Acid (Ascorbic Acid 500 Mg Tab) 500 mg PO QAM MARISOL Stop: 01/07/21 08:59 Last Admin: 12/23/20 08:47 Dose: 500 mg Documented by: Aspirin (Aspirin 81 Mg Ectab) 81 mg PO DAILY MARISOL Stop: 01/05/21 11:23 Last Admin: 12/23/20 08:47 Dose: 81 mg Documented by: Atorvastatin Calcium (Atorvastatin 40 Mg Tab) 40 mg PO DAILY MARISOL Stop: 01/05/21 11:23 Last Admin: 12/23/20 08:48 Dose: 40 mg Documented by: Benzonatate (Benzonatate 100 Mg Capsule) 100 mg PO TID PRN PRN Reason: cough Stop: 01/06/21 13:59 Dextrose (Dextrose 50% 50 Ml Syringe) 25 - 50 ml IV UD PRN; Protocol PRN Reason: Hypoglycemia Protocol Stop: 01/05/21 11:23 Enoxaparin Sodium (Enoxaparin Inj 40 Mg/0.4 Ml Syr) 40 mg SQ BID MARISOL Stop: 01/12/21 20:59 Last Admin: 12/23/20 08:48 Dose: 40 mg Documented by: Glucagon (Glucagon For Inj 1 Mg Vial) 1 mg SQ UD PRN; Protocol PRN Reason: Hypoglycemia Protocol Stop: 01/05/21 11:23 Glucose (Glucose 10 Tabs/Tube) 4 - 8 tabs PO UD PRN; Protocol PRN Reason: Hypoglycemia Protocol Stop: 01/05/21 11:23 Glucose (Glucose 40% Gel 15 Gm Tube) 15 - 30 gm PO UD PRN; Protocol PRN Reason: Hypoglycemia Protocol Stop: 01/05/21 11:23 Guaifenesin (Guaifenesin 600 Mg Tabcr) 600 mg PO Q12 MARISOL Stop: 01/06/21 20:59 Last Admin: 12/23/20 08:48 Dose: 600 mg Documented by: Piperacillin Sod/Tazobactam (Sod 4.5 gm/ Dextrose) 120 mls @ 30 mls/hr IV Q8H MARISOL; Protocol Stop: 12/26/20 15:59 Last Admin: 12/23/20 08:53 Dose: 30 mls/hr Documented by: Insulin Aspart (Insulin Aspart 100 Units/Ml 3 Ml Pen) 0 units SC ACHS [facility] Stop: 01/05/21 11:23 Last Admin: 12/23/20 08:49 Dose: 2 units Documented by: Insulin Glargine (Insulin Glargine Solostar 100 Units/Ml 3 Ml Pen) 8 units SC QAM [facility] Stop: 01/17/21 08:59 Last Admin: 12/23/20 08:49 Dose: 8 units Documented by: Levothyroxine Sodium (Levothyroxine Sodium 100 Mcg Tablet) 100 mcg PO DAILYBB [facility] Stop: 01/05/21 11:23 Last Admin: 12/23/20 05:59 Dose: 100 mcg Documented by: Miscellaneous (Carbohydrates For Hypoglycemia ) 15 - 30 gm PO UD PRN PRN Reason: Hypoglycemia Protocol Stop: 01/05/21 11:23 Last Admin: 12/17/20 16:45 Dose: 15 gm Documented by: Miscellaneous Information (Piperacill/Tazobac Consult Active) 1 ea N/A UD PRN PRN Reason: Consult Stop: 01/18/21 11:04 Nystatin (Nystatin Susp 500,000 U/5 Ml Udc) 5 ml PO QID MARISOL Stop: 12/30/20 17:59 Last Admin: 12/23/20 08:50 Dose: 5 ml Documented by: Ondansetron HCl (Ondansetron Inj 2 Mg/Ml 2 Ml Vial) 4 mg IV Q6H PRN PRN Reason: Nausea Stop: 01/05/21 11:23 Oxymetazoline HCl (Oxymetazoline 0.05% 30 Ml Btl) 1 sprays NA Q12 PRN PRN Reason: nasal congestion Stop: 01/13/21 09:44 Last Admin: 12/19/20 09:28 Dose: 1 sprays Documented by: Sodium Chloride (Sodium Chloride 0.65% Na Soln 45 Ml ([place])) 2 sprays NA Q2HWA PRN PRN Reason: Congestion Stop: 01/15/21 16:47 Last Admin: 12/21/20 08:51 Dose: 2 sprays Documented by: Zinc Sulfate (Zinc Sulfate 220 Mg Capsule) 220 mg PO QAM [facility] Stop: 01/07/21 08:59 Last Admin: 12/23/20 08:50 Dose: 220 mg Documented by: PG Care Time/CCT Total # of Minutes Spent Total Time Spent with Patient: Total time spent is greater than 50% in coordination of care (as documented) at patient's floor/unit and/or counseling patient: Coding Level of Care Code 27670 Subseq Hosp Care Lvl 3 Diagnoses COVID-19 U07.1 Acute respiratory failure with hypoxia J96.01 CKD (chronic kidney disease), stage III N18.3 Leukocytosis D72.829 Diabetes mellitus E11.9 Hypothyroidism E03.9 Dyslipidemia E78.5 Hyperuricemia E79.0 Hypertension I10 Epistaxis R04.0 Oral candidiasis B37.0 Depressed affect R45.89
[2020-12-23] MEDS ORDERED: FUROSEMIDE 40 MG/4 ML VIAL IV ONE (10:00)
[2020-12-23] MEDS ORDERED: SODIUM CHLORIDE 0.9% 1000ML 1,000 ML IV SCH (16:30)
[2020-12-23 18:15] LABS: Hematocrit (blood only) 35.4 % (42-52); Hemoglobin 11.8 g/dL (14.0-18.0)
[2020-12-23 18:41] LABS: Alanine Aminotransferase 32 U/L (12-78); Albumin Globulin Ratio 0.3 (0.9-2); Albumin Level 1.4 gm/dl (3.4-5.0); Alkaline Phosphatase 78 U/L (45-117); Aspartate Aminotransferase 21 U/L (15-37); BUN Creatinine Ratio 26.7 (10-20); Bilirubin,Total 0.4 mg/dl (0.2-1); Blood Urea Nitrogen 53 mg/dl (7-18); Carbon Dioxide 26 mmol/L (21-32); Chloride 104 mmol/L (98-107); Creatinine Clr Calc Pharmacy 36.9 ml/min; Est GFR (African American) 37.4 ml/min; Est GFR (Non-African American) 32.3 ml/min; Globulin 4.9 gm/dl (2.5-4.0); Glucose 243 mg/dl (70-99); Sodium 137 mmol/L (136-145); Total Protein 6.3 gm/dl (6.4-8.2); Troponin I < 0.015 ng/ml (0-0.045)
[2020-12-23 18:42] LABS: Potassium 4.5 mmol/L (3.5-5.1)
[2020-12-23] MEDS ORDERED: SODIUM CHLORIDE 0.9% 1000ML 1,000 ML IV ONE (22:06)
--- NOTE | 2020-12-23 22:44 | Communication Note ---
Date of Service: December 23, 2020 Called by bedside staff in regards to large volume bloody bowel movement earlier this evening, with subsequent development of temporary hypotension. On review of chart patient had H&H check approximately 1 hour prior to this point time, demonstrating hemoglobin of 11.8 hematocrit of 35.4. Hemoccult stool was sent and was positive. Chest x-ray was gathered at this point time as well for concern of crackles on auscultation of lungs over right lower lobe with maintained oxygen saturations. CXR demonstrated interval improvement as compared to 12/22. KUB additionally gather that that time following second large black bowel movement this demonstrated pronounced gastric bubble. BP improved following liter of normal saline. Decision was made to hold overnight Lovenox given acute upper GI bleed concern. 80 mg of IV Protonix given as bolus with 40 mg IV twice daily ordered. Will recheck H&H if patient has another large black bloody stool or changes in vitals. Resident Activity Tracking Resident Involvement: Resident Care Provided Care Provided: Adult [facility] Medicine
[2020-12-23] MEDS ORDERED: PANTOprazole 80 MG in DEXTROSE 5% 100 ML IV ONE (22:50)
[2020-12-24] MEDS: PIPERACILLIN/TAZOBACTAM 4.5 GM in DEXTROSE 5% 100 ML IV SCH ×4 (01:08→23:14)
[2020-12-24] MEDS: LEVOTHYROXINE SODIUM 100 MCG TABLET PO SCH (05:56)
[2020-12-24 06:48] LABS: Hemoglobin 10.3 g/dL (14.0-18.0)
--- NOTE | 2020-12-24 07:11 | XRay Report ---
XR chest 1V portable CLINICAL HISTORY: new respiratory crackles COMPARISON STUDY: December 14, 2020 FINDINGS: No pneumothorax. Bilateral costophrenic angles are obscured which might represent small bilateral pleural effusion. Redemonstration of the patchy airspace opacities mostly in peripheral lower lung distribution, not si gnificantly changed since prior. Cardiomediastinal silhouette is within normal limits in size. No significant pulmonary vascular congestion.. Aorta is calcified Osseous structures: Degenerative changes of the spine. IMPRESSION: 1. Stable multifocal pneumonia. Possible bilateral small pleural effusion. 2. Atherosclerosis. 3. The rest of findings as above. ACT 112: Negative or not required by law. The above report was generated using voice recognition software. It may contain grammatical, syntax o r spelling errors. Electronically signed by: Ailyn Arambula DO 12/24/2020 7:10 AM
--- NOTE | 2020-12-24 07:17 | XRay Report ---
XR KUB/Abdomen 1 view CLINICAL HISTORY: melena COMPARISON STUDY: No previous studies for comparison. FINDINGS: Gas-filled dilated stomach is seen. There are few areas of the bowel gas is seen at the left hemiabdomen however right hemiabdomen and pe lvic region shows paucity of gas which could be due to fluid-filled loops of bowel. Degenerative changes of the spine and vascular calcifications are seen. IMPRESSION: 1. Few gas-filled loops of bowel within left hemiabdomen are not dilated. Paucity of gas within the right hemiabdomen and pelvic region likely due to intraluminal fluid bowel content. Fluid-filled loop s of bowel cannot be assessed for dilatation on plain radiography. If there is a clinical concern for bowel obstruction, further evaluation with CT of abdomen might be considered. 2. Gas-filled dilated stomach. ACT 112: Negative or not required by law. The above report was generated using voice recognition software. It may contain grammatical, syntax o r spelling errors. Electronically signed by: Ailyn Arambula DO 12/24/2020 7:16 AM
[2020-12-24] MEDS ORDERED: SODIUM CHLORIDE 0.9% 250 ML IV PRN (07:24)
[2020-12-24] MEDS: allopurinoL 100 MG TAB PO SCH (09:26)
[2020-12-24] MEDS: PANTOprazole 40 MG in SYRINGE 0 ML IV SCH ×2 (09:26→21:34)
[2020-12-24] MEDS: NYSTATIN SUSP 500,000 U/5 ML UDC PO SCH ×4 (09:27→21:36)
[2020-12-24] MEDS: ZINC SULFATE 220 MG CAPSULE PO SCH (09:27)
[2020-12-24] MEDS: ATORVASTATIN 40 MG TAB PO SCH (09:27)
[2020-12-24] MEDS: SODIUM CHLORIDE 0.65% NA SOLN 45 ML (OCEAN) PRN (09:31)
[2020-12-24] MEDS: INSULIN ASPART 100 UNITS/ML 3 ML PEN SC SCH ×4 (09:34→20:51)
[2020-12-24] MEDS: INSULIN GLARGINE SOLOSTAR 100 UNITS/ML 3 ML PEN SC SCH (09:34)
--- NOTE | 2020-12-24 09:45 | Hospitalist Progress Note ---
Date of Service December 24, 2020 Assessment & Plan (1) COVID-19: Plan: 75yo male with history of DM, HTN, CKD-III presenting with Covid-19, hypoxia 88% on RA in ED. Patient is fully vaccinated against Covid (Pfizer-May) exposed to Covid-19 at a wedding 1 week [employer], Symptoms onset 12/02/11 Was not candidate for Tocilizumab (CRP downtrending and outside of window to give from symptoms onset) Completed 5 days Remdesivir on 12/12 Completed 10 days of dexamethasone Has been receiving lasix daily prn to keep negative fluid balance-will not give any today as renal function is worsening Completed full course of empiric abx therapy (rocephin/azithromycin) earlier in the course of hospitalization Initially requiring 3L O2 PA hospital day #2-3, needing 5L but was stable 12/12 (days #12 of viral course)--> Acute hypoxemic respiratory failure (sats 70-80's)-- needed 10L oxymask for sats to recover Was continuing to improve, and was weaned down to 7 L oxygen mask on 12/15, however on 12/16 he was having epistaxis which then caused difficulty breathing through his nose and had to be placed back on oxygen mask at 10 L to recover On 12/17 was requiring 15 L oxygen mask to keep pulse ox greater than 88% and was placed on high flow nasal cannula at 40 L and 85% FiO2 Chest x-ray on 12/17 with progressed bilateral infiltrates On 12/18, requiring 50L and 85-90% FiO2, however as long as he lies on his side, his POx is 95-97%. Sats drop immediately with sitting up or any movement. On 12/19, still requiring 50 L but weaned down to 75% FiO2, with suspected secondary bacterial pneumonia given continued productive sputum, elevated procalcitonin of 2.8, CRP continues to go up to 16, persistent leukocytosis. Is afebrile. On 12/20-was weaned down to 6 L nasal cannula earlier in the day, but had severe desaturation to the mid 70s with getting to bedside commode-placed back on high flow nasal cannula 12/21 - initially on 30L and 40% FiO2, got him down to 6L wall high flow in the afternoon/evening, no distress 12/22 and 12/23 - stable on 4-5L mask, OOB in the chair CXR 12/22 with improved aeration in bases, less infiltrates 12/24 breathing well, titrated down oxygen as tolerated, 3-5L oxy mask breathing is improving, now dealing with GI bleed -continue IV Zosyn, started 12/19, for coverage for gram-negative pneumonia, complete 7 days, today is day 6 - CRP down to 9 on 12/21 - MRSA swab negative-no need for vancomycin (2) Acute respiratory failure with hypoxia: Plan: marked improvement this week was on Vapotherm on 12/21, now down to 3-5L oxy mask suspect he will need oxygen on discharge as well as pulmonary follow up CXR 12/23 with improved aeration, less infiltrates (3) GI bleed: Plan: dark stools began 12/23, had more melena, bloody BM night of 12/23 had some soft BP afternoon and evening, responded well to NSS bolus Hb is down to 10.8 Lovenox and aspirin on hold Protonix 40mg IV BID just drinking clears, would not make NPO as his respiratory status would not allow for sedation, EGD follow H/H closely, transfuse as needed (4) Acute blood loss anemia: Plan: Hb was 13 on 12/21, down to 10.8 this morning repeat H/H at noon with type and cross he is open to blood transfusion as needed (5) CKD (chronic kidney disease), stage III: Plan: Patient with history of CKD II presenting with BETTE Possibly secondary to pre- renal azotemia, patient reported poor oral intake upfront did receive 2L IVF upfront (NV/D upfront with poor oral intake) Cr is 1.9 again today, BUN up to 53, suggestive of GI bleed? weight overall is down, no further Lasix needed (6) Leukocytosis: Plan: Likely with secondary bacterial pneumonia as above WBC down to 9k 12/21, no fever continue Zosyn, day 6 (7) Diabetes mellitus: Plan: Glimepiride and Metformin currently on hold Developed hypoglycemia for couple of days and insulin doses were decreased Dexamethasone course is now complete With hypoglycemia again in the afternoon of 12/17 have further reduced Lantus down to 8 units once daily and now improved, continue to monitor closely for hypoglycemia Continue NovoLog sliding scale (8) Hypothyroidism: Plan: Chronic, TSH normal earlier in 2020 -Continue Synthroid 100mcg po daily (9) Dyslipidemia: Plan: Chronic -Continue Atorvastatin 40 mg po daily (10) Hyperuricemia: Plan: Chronic -Continue Allopurinol daily - decreased dose to 200mg po daily for renal function (11) Hypertension: Plan: Blood pressure low normal, low at times with bleeding - lisinopril on hold (12) Oral candidiasis: Plan: Started nystatin swish and swallow on 12/20 x 10-day course throat pain is a lot better today, still not eating great (13) Depressed affect: Plan: frustrated being here, feels like he is never getting home daily encouragement, speaking with him at the bedside, talking about things besides hospitalization encouraged him to take it one day at a time Plan: DVT prophylaxis- stop Lovenox due to GI bleeding Disposition-continued stay on telemetry status, now with GI bleed, likely looking at next week for discharge, might need rehab as he is so weak Admission and Anticipated Discharge Date Admission Date: December 06, 2020 Subjective patient with a bloody BM last night, felt weak and light headed Hb is down to 10.3 this morning, was 11.8 yesterday, 13 three days ago heme occult positive patient doing okay this morning, laying flat, no light headed sensation, no chest pain, no dyspnea, no abdominal pain, no nausea/vomiting BP is stable while laying flat discussed that we will repeat H/H at noon, type and cross, if Hb is dropping or hypotensive then will need transfusion, he agrees Cr is 1.9, stable not eating very well, drinking okay, throat is no longer sore discussed plan with his RN far less oxygen requirements, was able to turn him down to 3L from 5L Review of Systems Review of Systems: All systems reviewed & are unremarkable except as noted in Subjective Constitutional: + fatigue and + weakness Respiratory: no cough and no dyspnea Cardiovascular: no chest pain and no edema Gastrointestinal: + diarrhea/loose stools and + melena; no abdominal pain, no nausea, no vomiting and no constipation Physical Exam Physical Exam: General: well developed, well nourished, no acute distress, fatigued, frail appearing, pale conjunctiva Neck: supple, trachea midline, normal thyroid Lungs: clear to auscultation bilaterally, normal effort, no accessory muscle use, no distress Heart: regular S1 and S2, no murmur, peripheral pulses normal, capillary refill normal, no edema Abdomen: soft, NT, ND, + BS, no hepatomegaly, normal to percussion Extremities: normal in appearance, no cyanosis, no petechiae, strength generally declined, very weak Neuro: awake, cooperative, moves all extremities, no focal motor deficits, CN II-XII intact, sensation in extremities intact, normal speech Skin: warm, dry, no rash, normal turgor Psych: Awake, alert oriented x 3, depressed affect, very down Results & Data Results & Data ([facility]) Vital Signs (Past 12 Hours) Vital Signs Temp Pulse Pulse Pulse Resp BP BP 12/24/20 07:33 37.3 C 74 29 H 90/57 L 12/24/20 03:55 37.3 C 81 28 H 112/58 L 12/23/20 23:04 36.7 C 100 H 32 H 122/65 12/23/20 22:37 124/57 L 12/23/20 22:15 102 H 12/23/20 22:05 114/53 L 12/23/20 21:55 109/53 L Pulse Ox 12/24/20 07:33 99 12/24/20 03:55 94 12/23/20 23:04 93 12/23/20 22:37 12/23/20 22:15 12/23/20 22:05 12/23/20 21:55 Laboratory Results Laboratory Results - last 24 hr 12/23/20 12/23/20 12/23/20 11:27 16:18 17:57 Hgb 11.8 L Hct 35.4 L Sodium Potassium Chloride Carbon Dioxide Anion Gap BUN Creatinine Est Cr Clr Drug Dosing Est GFR ( Amer) Est GFR (Non-Af Amer) BUN/Creatinine Ratio Glucose POC Glucose 192 H 280 H Lactate Calcium Total Bilirubin AST ALT Alkaline Phosphatase Troponin I Total Protein Albumin Globulin Albumin/Globulin Ratio Stool Occult Bld Scrn 12/23/20 12/23/20 12/23/20 17:57 17:57 20:21 Hgb Hct Sodium 137 Potassium 4.5 D Chloride 104 Carbon Dioxide 26 Anion Gap 7.0 BUN 53 H D Creatinine 1.97 H Est Cr Clr Drug Dosing 36.9 Est GFR ( Amer) 37.4 Est GFR (Non-Af Amer) 32.3 BUN/Creatinine Ratio 26.7 H Glucose 243 H POC Glucose 283 H Lactate 2.9 H* Calcium 8.0 L Total Bilirubin 0.4 AST 21 ALT 32 Alkaline Phosphatase 78 Troponin I < 0.015 Total Protein 6.3 L Albumin 1.4 L Globulin 4.9 H Albumin/Globulin Ratio 0.3 L Stool Occult Bld Scrn 12/23/20 12/24/20 12/24/20 21:00 06:22 07:35 Hgb 10.3 L Hct 31.0 L Sodium Potassium Chloride Carbon Dioxide Anion Gap BUN Creatinine Est Cr Clr Drug Dosing Est GFR ( Amer) Est GFR (Non-Af Amer) BUN/Creatinine Ratio Glucose POC Glucose 256 H Lactate Calcium Total Bilirubin AST ALT Alkaline Phosphatase Troponin I Total Protein Albumin Globulin Albumin/Globulin Ratio Stool Occult Bld Scrn Positive A Medications Administered Current Inpatient Medications Acetaminophen (Acetaminophen 325 Mg Tab) 650 mg PO Q4H PRN PRN Reason: pain or fever Stop: 01/05/21 11:23 Albuterol (Albuterol Hfa 8 Gm Inhaler) 2 puffs INH Q4R PRN PRN Reason: Shortness Of Breath Or Wheezing Stop: 01/05/21 11:23 Last Admin: 12/13/20 07:24 Dose: 2 puffs Documented by: Albuterol (Albut/Ipratrop 3mg/0.5mg Neb 3 Ml Vial) 3 ml NEB Q2R PRN PRN Reason: Shortness Of Breath Or Wheezing Stop: 01/16/21 08:11 Allopurinol (Allopurinol 100 Mg Tab) 200 mg PO DAILY MARISOL Stop: 01/05/21 11:23 Last Admin: 12/24/20 09:26 Dose: 200 mg Documented by: Atorvastatin Calcium (Atorvastatin 40 Mg Tab) 40 mg PO DAILY MARISOL Stop: 01/05/21 11:23 Last Admin: 12/24/20 09:27 Dose: 40 mg Documented by: Benzonatate (Benzonatate 100 Mg Capsule) 100 mg PO TID PRN PRN Reason: cough Stop: 01/06/21 13:59 Dextrose (Dextrose 50% 50 Ml Syringe) 25 - 50 ml IV UD PRN; Protocol PRN Reason: Hypoglycemia Protocol Stop: 01/05/21 11:23 Glucagon (Glucagon For Inj 1 Mg Vial) 1 mg SQ UD PRN; Protocol PRN Reason: Hypoglycemia Protocol Stop: 01/05/21 11:23 Glucose (Glucose 10 Tabs/Tube) 4 - 8 tabs PO UD PRN; Protocol PRN Reason: Hypoglycemia Protocol Stop: 01/05/21 11:23 Glucose (Glucose 40% Gel 15 Gm Tube) 15 - 30 gm PO UD PRN; Protocol PRN Reason: Hypoglycemia Protocol Stop: 01/05/21 11:23 Piperacillin Sod/Tazobactam (Sod 4.5 gm/ Dextrose) 120 mls @ 30 mls/hr IV Q8H MARISOL; Protocol Stop: 12/26/20 15:59 Last Admin: 12/24/20 09:22 Dose: 30 mls/hr Documented by: Pantoprazole Sodium 40 mg/ (Syringe) 10 mls @ 5 mls/min IV BID MARISOL Stop: 01/23/21 08:59 Last Admin: 12/24/20 09:26 Dose: 5 mls/min Documented by: Sodium Chloride (Nss) 250 mls @ 15 mls/hr IV .[id number] PRN PRN Reason: For Transfusion Stop: 12/24/20 17:25 Insulin Aspart (Insulin Aspart 100 Units/Ml 3 Ml Pen) 0 units SC ACHS [facility] Stop: 01/05/21 11:23 Last Admin: 12/24/20 09:34 Dose: 5 units Documented by: Insulin Glargine (Insulin Glargine Solostar 100 Units/Ml 3 Ml Pen) 8 units SC QAM [facility] Stop: 01/17/21 08:59 Last Admin: 12/24/20 09:34 Dose: 8 units Documented by: Levothyroxine Sodium (Levothyroxine Sodium 100 Mcg Tablet) 100 mcg PO DAILYBB [facility] Stop: 01/05/21 11:23 Last Admin: 12/24/20 05:56 Dose: 100 mcg Documented by: Miscellaneous (Carbohydrates For Hypoglycemia ) 15 - 30 gm PO UD PRN PRN Reason: Hypoglycemia Protocol Stop: 01/05/21 11:23 Last Admin: 12/17/20 16:45 Dose: 15 gm Documented by: Miscellaneous Information (Piperacill/Tazobac Consult Active) 1 ea N/A UD PRN PRN Reason: Consult Stop: 01/18/21 11:04 Nystatin (Nystatin Susp 500,000 U/5 Ml Udc) 5 ml PO QID [facility] Stop: 12/30/20 17:59 Last Admin: 12/24/20 09:27 Dose: 5 ml Documented by: Ondansetron HCl (Ondansetron Inj 2 Mg/Ml 2 Ml Vial) 4 mg IV Q6H PRN PRN Reason: Nausea Stop: 01/05/21 11:23 Oxymetazoline HCl (Oxymetazoline 0.05% 30 Ml Btl) 1 sprays NA Q12 PRN PRN Reason: nasal congestion Stop: 01/13/21 09:44 Last Admin: 12/19/20 09:28 Dose: 1 sprays Documented by: Sodium Chloride (Sodium Chloride 0.65% Na Soln 45 Ml ([place])) 2 sprays NA Q2HWA PRN PRN Reason: Congestion Stop: 01/15/21 16:47 Last Admin: 12/24/20 09:31 Dose: 2 sprays Documented by: Zinc Sulfate (Zinc Sulfate 220 Mg Capsule) 220 mg PO QAM [facility] Stop: 01/07/21 08:59 Last Admin: 12/24/20 09:27 Dose: 220 mg Documented by: PG Care Time/CCT Total # of Minutes Spent Total Time Spent with Patient: Total time spent is greater than 50% in coordination of care (as documented) at patient's floor/unit and/or counseling patient: Coding Level of Care Code 03998 Subseq Hosp Care Lvl 3 Diagnoses COVID-19 U07.1 Acute respiratory failure with hypoxia J96.01 CKD (chronic kidney disease), stage III N18.3 Leukocytosis D72.829 Diabetes mellitus E11.9 Hypothyroidism E03.9 Dyslipidemia E78.5 Hyperuricemia E79.0 Hypertension I10 Oral candidiasis B37.0 Depressed affect R45.89 GI bleed K92.2 Acute blood loss anemia D62
[2020-12-24 12:14] LABS: Hematocrit (blood only) 30.3 % (42-52); Hemoglobin 9.9 g/dL (14.0-18.0)
[2020-12-24 19:27] LABS: Hematocrit (blood only) 28.1 % (42-52); Hemoglobin 9.4 g/dL (14.0-18.0)
--- NOTE | 2020-12-25 05:50 | Electrocardiogram Report ---
Test Reason : Blood Pressure : / mmHG Vent. Rate : 096 BPM Atrial Rate : 096 BPM P-R Int : 160 ms QRS Dur : 076 ms QT Int : 324 ms P-R-T Axes : 043 022 -46 degrees QTc Int : 409 ms Sinus rhythm with Premature atrial complexes Nonspecific ST and T wave abnormality Abnormal ECG When compared with ECG of 06-DEC-2020 03:59, Premature atrial complexes are now Present Confirmed by Prince Hunter ([id number]) on 12/25/2020 5:49:56 AM Referred By: REFERRED SELF Confirmed By:Prince Hunter
[2020-12-25] MEDS: LEVOTHYROXINE SODIUM 100 MCG TABLET PO SCH (06:12)
[2020-12-25 06:59] LABS: Hematocrit (blood only) 26.7 % (42-52); Hemoglobin 8.8 g/dL (14.0-18.0); Mean Corpuscular Hemoglobin 31.4 pg (25-34); Mean Corpuscular Volume 95.4 fL (80-100); Mean Platelet Volume 9.6 fL (7.4-10.4); Platelet Count 209 K/uL (130-400); RDW Coefficient of Variation 13.4 % (11.5-14.5); RDW Standard Deviation 46.9 fL (36.4-46.3)
[2020-12-25 07:20] LABS: BUN Creatinine Ratio 28.1 (10-20); Calcium 7.7 mg/dl (8.5-10.1); Creatinine Clr Calc Pharmacy 33.7 ml/min; Est GFR (African American) 33.7 ml/min; Est GFR (Non-African American) 29.1 ml/min; Potassium 3.6 mmol/L (3.5-5.1)
[2020-12-25] MEDS: PANTOprazole 40 MG in SYRINGE 0 ML IV SCH ×2 (09:03→21:52)
[2020-12-25] MEDS: PIPERACILLIN/TAZOBACTAM 4.5 GM in DEXTROSE 5% 100 ML IV SCH ×2 (09:03→16:55)
[2020-12-25] MEDS: ATORVASTATIN 40 MG TAB PO SCH (09:07)
[2020-12-25] MEDS: NYSTATIN SUSP 500,000 U/5 ML UDC PO SCH ×4 (09:07→21:52)
[2020-12-25] MEDS: allopurinoL 100 MG TAB PO SCH (09:07)
[2020-12-25] MEDS: ZINC SULFATE 220 MG CAPSULE PO SCH (09:07)
[2020-12-25] MEDS: INSULIN ASPART 100 UNITS/ML 3 ML PEN SC SCH ×4 (09:10→21:51)
[2020-12-25] MEDS ORDERED: INSULIN GLARGINE SOLOSTAR 100 UNITS/ML 3 ML PEN SC SCH (09:15)
[2020-12-25] MEDS ORDERED: INSULIN GLARGINE SOLOSTAR 100 UNITS/ML 3 ML PEN SC STA (10:00)
--- NOTE | 2020-12-25 10:04 | Hospitalist Progress Note ---
Date of Service December 25, 2020 Assessment & Plan (1) COVID-19: Plan: 75yo male with history of DM, HTN, CKD-III presenting with Covid-19, hypoxia 88% on RA in ED. Patient is fully vaccinated against Covid (Pfizer-May) exposed to Covid-19 at a wedding 1 week [employer], Symptoms onset 12/02/11 Was not candidate for Tocilizumab (CRP downtrending and outside of window to give from symptoms onset) Completed 5 days Remdesivir on 12/12 Completed 10 days of dexamethasone Completed full course of empiric abx therapy (rocephin/azithromycin) earlier in the course of hospitalization Initially requiring 3L O2 NC hospital day #2-3, needing 5L but was stable 12/12 (days #12 of viral course)--> Acute hypoxemic respiratory failure (sats 70-80's)-- needed 10L oxymask for sats to recover Was continuing to improve, and was weaned down to 7 L oxygen mask on 12/15, however on 12/16 he was having epistaxis which then caused difficulty breathing through his nose and had to be placed back on oxygen mask at 10 L to recover On 12/17 was requiring 15 L oxygen mask to keep pulse ox greater than 88% and was placed on high flow nasal cannula at 40 L and 85% FiO2 Chest x-ray on 12/17 with progressed bilateral infiltrates On 12/18, requiring 50L and 85-90% FiO2, however as long as he lies on his side, his POx is 95-97%. Sats drop immediately with sitting up or any movement. On 12/19, still requiring 50 L but weaned down to 75% FiO2, with suspected secondary bacterial pneumonia given continued productive sputum, elevated procalcitonin of 2.8, CRP continues to go up to 16, persistent leukocytosis. Is afebrile. On 12/20-was weaned down to 6 L nasal cannula earlier in the day, but had severe desaturation to the mid 70s with getting to bedside commode-placed back on high flow nasal cannula 12/21 - initially on 30L and 40% FiO2, got him down to 6L wall high flow in the afternoon/evening, no distress 12/22 and 12/23 - stable on 4-5L mask, OOB in the chair CXR 12/22 with improved aeration in bases, less infiltrates 12/24 and 12/25 breathing well, titrated down to 2L breathing is improving, now dealing with GI bleed - IV Zosyn, started 12/19, for coverage for gram-negative pneumonia, completed 7 days on 12/25 - CRP down to 9 on 12/21 - MRSA swab negative-no need for vancomycin (2) Acute respiratory failure with hypoxia: Plan: marked improvement this week was on Vapotherm on 12/21, now down to 2L oxy mask suspect he will need oxygen on discharge as well as pulmonary follow up CXR 12/23 with improved aeration, less infiltrates (3) GI bleed: Plan: dark stools began 12/23, had more melena, bloody BM night of 12/23 had some soft BP afternoon and evening, responded well to NSS bolus Hb is down to 8.8 today Lovenox and aspirin on hold since AM 12/24 Protonix 40mg IV BID appreciate GI consult, patient want to avoid EGD if possible no melena for over 24 hours, optimistic that it has stopped or slowing down follow H/H closely, transfuse as needed for Hb < 8.5 as his BP is soft and Cr up to 2.1 (4) Acute blood loss anemia: Plan: Hb was 13 on 12/21, down to 10.8 then down to 8.8 today repeat H/H this afternoon transfuse if < 8.5 due to soft BP and elevated Cr type and cross, O positive (5) CKD (chronic kidney disease), stage III: Plan: Patient with history of CKD III Cr is up to 2.1 and BUN up to 60, suspect slight bump in numbers due to anemia, soft BP making urine via zeng (6) Leukocytosis: Plan: Likely with secondary bacterial pneumonia as above WBC down to 9k 12/21, no fever finish Zosyn, day 7 (7) Diabetes mellitus: Plan: Glimepiride and Metformin currently on hold Developed hypoglycemia for couple of days and insulin doses were decreased Dexamethasone course is now complete some hyperglycemia the past two days, eating a little more increase Lantus to 12 qAM and tighten carb ratio to 12 (8) Hypothyroidism: Plan: Chronic, TSH normal earlier in 2020 -Continue Synthroid 100mcg po daily (9) Dyslipidemia: Plan: Chronic -Continue Atorvastatin 40 mg po daily (10) Hyperuricemia: Plan: Chronic -Continue Allopurinol daily - decreased dose to 200mg po daily for renal function (11) Hypertension: Plan: Blood pressure low normal, low at times with bleeding - lisinopril on hold (12) Oral candidiasis: Plan: Started nystatin swish and swallow on 12/20 x 10-day course throat pain is a lot better last day would be (13) Depressed affect: Plan: frustrated being here, feels like he is never getting home daily encouragement, speaking with him at the bedside, talking about things besides hospitalization encouraged him to take it one day at a time Plan: DVT prophylaxis- stop Lovenox due to GI bleeding Disposition-continued stay on telemetry status, now with GI bleed, likely looking at next week for discharge, might need rehab as he is so weak Admission and Anticipated Discharge Date Admission Date: December 06, 2020 Subjective patient looking better today and he says he feels better no BM today, had a small one yesterday morning BUN trending up to 60 from 50, CR up to 2.1 from 1.9 Hb down to 8.8, will repeat this afternoon patient is breathing well on 2L mask, no distress at all, minimal cough still says he feels very weak sugars high yesterday, spoke with pharmacy, increase Lantus 12 qAM and tighten Novolog carb ratio to 12 from 15 Review of Systems Review of Systems: All systems reviewed & are unremarkable except as noted in Subjective Constitutional: + fatigue and + weakness; no fever Respiratory: + dyspnea on exertion; no cough and no dyspnea Cardiovascular: no chest pain and no edema Gastrointestinal: + melena; no abdominal pain, no nausea, no vomiting, no constipation and no diarrhea/loose stools Physical Exam Physical Exam: General: well developed, well nourished, no acute distress, fatigued, frail appearing, pale conjunctiva Neck: supple, trachea midline, normal thyroid Lungs: clear to auscultation bilaterally, normal effort, no accessory muscle use, no distress Heart: regular S1 and S2, no murmur, peripheral pulses normal, capillary refill normal, no edema Abdomen: soft, NT, ND, + BS, no hepatomegaly, normal to percussion Extremities: normal in appearance, no cyanosis, no petechiae, strength generally declined, very weak Neuro: awake, cooperative, moves all extremities, no focal motor deficits, CN II-XII intact, sensation in extremities intact, normal speech Skin: warm, dry, no rash, normal turgor Psych: Awake, alert oriented x 3, depressed affect, very down Results & Data Results & Data ([facility]) Vital Signs (Past 12 Hours) Vital Signs Temp Pulse Pulse Resp BP BP Pulse Ox 12/25/20 07:25 36.7 C 67 18 114/55 L 97 12/25/20 04:07 36.7 C 75 22 123/62 95 12/24/20 23:21 36.5 C 73 24 123/63 95 Laboratory Results Laboratory Results - last 24 hr 12/24/20 12/24/20 12/24/20 06:22 11:50 11:54 WBC RBC Hgb Hct MCV MCH MCHC RDW Std Deviation RDW Coeff of Donna Plt Count MPV Sodium Potassium Chloride Carbon Dioxide Anion Gap BUN Creatinine Est Cr Clr Drug Dosing Est GFR ( Amer) Est GFR (Non-Af Amer) BUN/Creatinine Ratio Glucose POC Glucose 257 H Calcium Blood Type O Positive Blood Type Recheck O Positive Antibody Screen NEGATIVE Crossmatch See Detail 12/24/20 12/24/20 12/24/20 11:54 16:06 19:05 WBC RBC Hgb 9.9 L 9.4 L Hct 30.3 L 28.1 L MCV MCH MCHC RDW Std Deviation RDW Coeff of Donna Plt Count MPV Sodium Potassium Chloride Carbon Dioxide Anion Gap BUN Creatinine Est Cr Clr Drug Dosing Est GFR ( Amer) Est GFR (Non-Af Amer) BUN/Creatinine Ratio Glucose POC Glucose 234 H Calcium Blood Type Blood Type Recheck Antibody Screen Crossmatch 12/24/20 12/25/20 12/25/20 20:48 06:15 06:15 WBC 10.40 RBC 2.80 L Hgb 8.8 L Hct 26.7 L MCV 95.4 MCH 31.4 MCHC 33.0 RDW Std Deviation 46.9 H RDW Coeff of Donna 13.4 Plt Count 209 MPV 9.6 Sodium 139 Potassium 3.6 D Chloride 109 H Carbon Dioxide 26 Anion Gap 4.0 BUN 61 H Creatinine 2.15 H Est Cr Clr Drug Dosing 33.7 Est GFR ( Amer) 33.7 Est GFR (Non-Af Amer) 29.1 BUN/Creatinine Ratio 28.1 H Glucose 190 H POC Glucose 211 H Calcium 7.7 L Blood Type Blood Type Recheck Antibody Screen Crossmatch 12/25/20 08:05 WBC RBC Hgb Hct MCV MCH MCHC RDW Std Deviation RDW Coeff of Donna Plt Count MPV Sodium Potassium Chloride Carbon Dioxide Anion Gap BUN Creatinine Est Cr Clr Drug Dosing Est GFR ( Amer) Est GFR (Non-Af Amer) BUN/Creatinine Ratio Glucose POC Glucose 186 H Calcium Blood Type Blood Type Recheck Antibody Screen Crossmatch Medications Administered Current Inpatient Medications Acetaminophen (Acetaminophen 325 Mg Tab) 650 mg PO Q4H PRN PRN Reason: pain or fever Stop: 01/05/21 11:23 Albuterol (Albuterol Hfa 8 Gm Inhaler) 2 puffs INH Q4R PRN PRN Reason: Shortness Of Breath Or Wheezing Stop: 01/05/21 11:23 Last Admin: 12/13/20 07:24 Dose: 2 puffs Documented by: Albuterol (Albut/Ipratrop 3mg/0.5mg Neb 3 Ml Vial) 3 ml NEB Q2R PRN PRN Reason: Shortness Of Breath Or Wheezing Stop: 01/16/21 08:11 Allopurinol (Allopurinol 100 Mg Tab) 200 mg PO DAILY MARISOL Stop: 01/05/21 11:23 Last Admin: 12/25/20 09:07 Dose: 200 mg Documented by: Atorvastatin Calcium (Atorvastatin 40 Mg Tab) 40 mg PO DAILY MARISOL Stop: 01/05/21 11:23 Last Admin: 12/25/20 09:07 Dose: 40 mg Documented by: Benzonatate (Benzonatate 100 Mg Capsule) 100 mg PO TID PRN PRN Reason: cough Stop: 01/06/21 13:59 Dextrose (Dextrose 50% 50 Ml Syringe) 25 - 50 ml IV UD PRN; Protocol PRN Reason: Hypoglycemia Protocol Stop: 01/05/21 11:23 Glucagon (Glucagon For Inj 1 Mg Vial) 1 mg SQ UD PRN; Protocol PRN Reason: Hypoglycemia Protocol Stop: 01/05/21 11:23 Glucose (Glucose 10 Tabs/Tube) 4 - 8 tabs PO UD PRN; Protocol PRN Reason: Hypoglycemia Protocol Stop: 01/05/21 11:23 Glucose (Glucose 40% Gel 15 Gm Tube) 15 - 30 gm PO UD PRN; Protocol PRN Reason: Hypoglycemia Protocol Stop: 01/05/21 11:23 Piperacillin Sod/Tazobactam (Sod 4.5 gm/ Dextrose) 120 mls @ 30 mls/hr IV Q8H [facility]; Protocol Stop: 12/26/20 15:59 Last Admin: 12/25/20 09:03 Dose: 30 mls/hr Documented by: Pantoprazole Sodium 40 mg/ (Syringe) 10 mls @ 5 mls/min IV BID [facility] Stop: 01/23/21 08:59 Last Admin: 12/25/20 09:03 Dose: 5 mls/min Documented by: Insulin Aspart (Insulin Aspart 100 Units/Ml 3 Ml Pen) 0 units SC ACHS [facility] Stop: 01/05/21 11:23 Last Admin: 12/25/20 09:10 Dose: 2 units Documented by: Insulin Glargine (Insulin Glargine Solostar 100 Units/Ml 3 Ml Pen) 12 units SC QAM [facility] Stop: 01/25/21 08:59 Insulin Glargine (Insulin Glargine Solostar 100 Units/Ml 3 Ml Pen) 8 units SC NOW STA Stop: 12/25/20 10:01 Levothyroxine Sodium (Levothyroxine Sodium 100 Mcg Tablet) 100 mcg PO DAILYBB [facility] Stop: 01/05/21 11:23 Last Admin: 12/25/20 06:12 Dose: 100 mcg Documented by: Miscellaneous (Carbohydrates For Hypoglycemia ) 15 - 30 gm PO UD PRN PRN Reason: Hypoglycemia Protocol Stop: 01/05/21 11:23 Last Admin: 12/17/20 16:45 Dose: 15 gm Documented by: Miscellaneous Information (Piperacill/Tazobac Consult Active) 1 ea N/A UD PRN PRN Reason: Consult Stop: 01/18/21 11:04 Nystatin (Nystatin Susp 500,000 U/5 Ml Udc) 5 ml PO QID [facility] Stop: 12/30/20 17:59 Last Admin: 12/25/20 09:07 Dose: 5 ml Documented by: Ondansetron HCl (Ondansetron Inj 2 Mg/Ml 2 Ml Vial) 4 mg IV Q6H PRN PRN Reason: Nausea Stop: 01/05/21 11:23 Oxymetazoline HCl (Oxymetazoline 0.05% 30 Ml Btl) 1 sprays NA Q12 PRN PRN Reason: nasal congestion Stop: 01/13/21 09:44 Last Admin: 12/19/20 09:28 Dose: 1 sprays Documented by: Sodium Chloride (Sodium Chloride 0.65% Na Soln 45 Ml ([place])) 2 sprays NA Q2HWA PRN PRN Reason: Congestion Stop: 01/15/21 16:47 Last Admin: 12/24/20 09:31 Dose: 2 sprays Documented by: Zinc Sulfate (Zinc Sulfate 220 Mg Capsule) 220 mg PO QAM MARISOL Stop: 01/07/21 08:59 Last Admin: 12/25/20 09:07 Dose: 220 mg Documented by: PG Care Time/CCT Total # of Minutes Spent Total Time Spent with Patient: Total time spent is greater than 50% in coordination of care (as documented) at patient's floor/unit and/or counseling patient: Coding Level of Care Code 58253 Subseq Hosp Care Lvl 3 Diagnoses COVID-19 U07.1 Acute respiratory failure with hypoxia J96.01 GI bleed K92.2 Acute blood loss anemia D62 CKD (chronic kidney disease), stage III N18.3 Leukocytosis D72.829 Diabetes mellitus E11.9 Hypothyroidism E03.9 Dyslipidemia E78.5 Hyperuricemia E79.0 Hypertension I10 Oral candidiasis B37.0 Depressed affect R45.89
--- NOTE | 2020-12-25 11:00 | Gastrointestinal Consultation ---
Date of Consultation December 25, 2020 Assessment & Plan (1) Acute blood loss anemia: DDX: AVM vs PUD vs diverticular vs other. Possible related to recent corticosteroids. Discussed with the patient the risks vs benefits of EGD and he would like to avoid invasive work up requiring anesthesia given current respiratory status and this was communicated with Dr. Vasques. Patient is no longer having melena. Will continue to monitor and treat supportively with Pantoprazole 40 mg IV BID. If further decline in H&H and/or returning GIB, may need to consider endoscopic evaluation. Thank you for allowing us to participating in the care of this pleasant patient. If you have any questions or concerns, please do not hesitate to contact us. Supervising Physician Co-Signing Physician Notes I agree with the findings as documented by JIMBO Bright History of Present Illness Reason for Consultation: Melena Requesting Physician: Dr. Vasques Attending Physician: Ricky Vasques, DO History of Present Illness Patient is a very pleasant 75 y.o. male admitted with COVID-pneumonia. He has been recovering from a respiratory standpoint since his admission on 12/06/20. He has been weaned down to 2L mask. Patient still has a cough and is dyspneic with exertion and speech. No chest pain or palpitations. He has been noted to have a gradual decline in his H&H over the past few days from 13.7/35.4 on 12/21 down to 8.8 and 26.7 today. He reports he was having melenic stools 3-4 times two days ago. Reports one dark stool yesterday but no bms today. BUN did elevate from 32 to 61 today. Denies any nausea, vomiting, hematemesis or abdominal pain. Has been started on BID Pantoprazole. No history of intubation or NG insertion during this hospitalization but was treated with 10 days of IV dexamethasone. Allergies Allergy/AdvReac Type Severity Reaction Status Date / Time No Known Drug Allergies Allergy Verified 09/15/20 13:58 Home Medications Medication Instructions Recorded Confirmed Type aspirin 81 mg tablet,delayed 81 mg PO DAILY #30 tab 10/31/18 12/06/20 Rx release (Aspir-) levothyroxine 100 mcg capsule 100 mcg PO DAILY #90 cap 02/26/20 12/06/20 Rx tadalafil 20 mg tablet 20 mg PO DAILY PRN #10 tab 03/10/20 12/06/20 Rx lisinopril 10 mg tablet 10 mg PO DAILY #90 tab 03/17/20 12/06/20 Rx atorvastatin 40 mg tablet 40 mg PO DAILY #90 tab 05/11/20 12/06/20 Rx glimepiride 4 mg tablet 2 mg PO QAM #90 tab 05/11/20 12/06/20 Rx metformin 500 mg tablet 500 mg PO DAILY #90 tab 05/11/20 12/06/20 Rx allopurinol 300 mg tablet 300 mg PO DAILY #90 tab 10/26/20 12/06/20 Rx azithromycin 250 mg tablet See Rx Instructions PO .COMPLEX #6 12/03/20 12/06/20 Rx tab Patient History Medical History BETTE (acute kidney injury) Calcium oxalate stones Complex renal cyst Left renal mass Pneumonia Uric acid nephrolithiasis Surgical History H/O colonoscopy H/O partial nephrectomy S/P appendectomy S/P tonsillectomy and adenoidectomy Family History Father Lung cancer Family/Other Arthritis Social History Smoking Status: Never smoker Hx Alcohol Use: Yes Alcohol type: wine Hx Substance Use: No Preferred Language: Nepali Communication Ability: Effective 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 Beliefs That Will Affect Care: None marital status: Current Living Situation: Spouse current occupational status: employed Feels Safe at Home: Yes Assistive Devices: Oxygen - Continuous Review of Systems Constitutional: + fatigue; no fever and no chills Respiratory: as per Subjective / HPI Cardiovascular: as per Subjective / HPI Gastrointestinal: as per Subjective / HPI Physical Exam Constitutional: WD/WN, vitals as above Eyes: EOM intact bilaterally Neck: normal visual inspection Respiratory: normal respiratory effort Auscultation: + diminished lung sounds Cardiovascular: Rate/Rhythm: regular rate and regular rhythm Heart Sounds: no murmur Gastrointestinal (Abdomen): normal bowel sounds, soft, nontender, no hepatosplenomegaly Musculoskeletal: Extremities: extremities normal to inspection Skin: + pallor Psychiatric: A+Ox3, euthymic affect Results & Data ([facility]) Vital Signs (Past 12 Hours) Vital Signs Temp Pulse Pulse Resp BP BP Pulse Ox 12/25/20 07:25 36.7 C 67 18 114/55 L 97 12/25/20 04:07 36.7 C 75 22 123/62 95 12/24/20 23:21 36.5 C 73 24 123/63 95 Laboratory Results Abnormal lab results 12/24/20 12/24/20 12/24/20 Range/Units 11:50 11:54 11:54 RBC (4.7-6.1) M/uL Hgb 9.9 L (14.0-18.0) g/dL Hct 30.3 L (42-52) % RDW Std Deviation (36.4-46.3) fL Chloride (98-107) mmol/L BUN (7-18) mg/dl Creatinine (0.6-1.4) mg/dl BUN/Creatinine Ratio (10-20) Glucose (70-99) mg/dl POC Glucose 257 H (70-99) mg/dl Calcium (8.5-10.1) mg/dl Crossmatch See Detail 12/24/20 12/24/20 12/24/20 Range/Units 16:06 19:05 20:48 RBC (4.7-6.1) M/uL Hgb 9.4 L (14.0-18.0) g/dL Hct 28.1 L (42-52) % RDW Std Deviation (36.4-46.3) fL Chloride (98-107) mmol/L BUN (7-18) mg/dl Creatinine (0.6-1.4) mg/dl BUN/Creatinine Ratio (10-20) Glucose (70-99) mg/dl POC Glucose 234 H 211 H (70-99) mg/dl Calcium (8.5-10.1) mg/dl Crossmatch 12/25/20 12/25/20 12/25/20 Range/Units 06:15 06:15 08:05 RBC 2.80 L (4.7-6.1) M/uL Hgb 8.8 L (14.0-18.0) g/dL Hct 26.7 L (42-52) % RDW Std Deviation 46.9 H (36.4-46.3) fL Chloride 109 H (98-107) mmol/L BUN 61 H (7-18) mg/dl Creatinine 2.15 H (0.6-1.4) mg/dl BUN/Creatinine Ratio 28.1 H (10-20) Glucose 190 H (70-99) mg/dl POC Glucose 186 H (70-99) mg/dl Calcium 7.7 L (8.5-10.1) mg/dl Crossmatch PG Care Time/CCT Total # of Minutes Spent Total Time Spent with Patient: Total time spent is greater than 50% in coordination of care (as documented) at patient's floor/unit and/or counseling patient: Coding Level of Care Code 24775 Initial Inpt Care Lvl 3 Diagnoses Acute blood loss anemia D62
[2020-12-25 13:44] LABS: Hematocrit (blood only) 26.7 % (42-52); Hemoglobin 8.9 g/dL (14.0-18.0)
[2020-12-26] MEDS: PIPERACILLIN/TAZOBACTAM 4.5 GM in DEXTROSE 5% 100 ML IV SCH ×2 (00:52→08:51)
[2020-12-26] MEDS: LEVOTHYROXINE SODIUM 100 MCG TABLET PO SCH (06:29)
[2020-12-26 06:52] LABS: Hematocrit (blood only) 25.2 % (42-52); Hemoglobin 8.2 g/dL (14.0-18.0)
[2020-12-26] MEDS ORDERED: SODIUM CHLORIDE 0.9% 250 ML IV PRN (07:49)
[2020-12-26 08:10] LABS: BUN Creatinine Ratio 22.7 (10-20); Calcium 7.7 mg/dl (8.5-10.1); Est GFR (African American) 38.9 ml/min; Est GFR (Non-African American) 33.5 ml/min; Potassium 3.7 mmol/L (3.5-5.1)
[2020-12-26] MEDS: allopurinoL 100 MG TAB PO SCH (08:32)
[2020-12-26] MEDS: ZINC SULFATE 220 MG CAPSULE PO SCH (08:33)
[2020-12-26] MEDS: ATORVASTATIN 40 MG TAB PO SCH (08:33)
[2020-12-26] MEDS: INSULIN GLARGINE SOLOSTAR 100 UNITS/ML 3 ML PEN SC SCH (08:35)
[2020-12-26] MEDS: INSULIN ASPART 100 UNITS/ML 3 ML PEN SC SCH ×4 (08:36→20:59)
[2020-12-26] MEDS: NYSTATIN SUSP 500,000 U/5 ML UDC PO SCH ×4 (08:37→20:57)
[2020-12-26] MEDS: PANTOprazole 40 MG in SYRINGE 0 ML IV SCH ×2 (08:37→20:57)
--- NOTE | 2020-12-26 09:24 | Hospitalist Progress Note ---
Date of Service December 26, 2020 Assessment & Plan (1) COVID-19: Plan: 75yo male with history of DM, HTN, CKD-III presenting with Covid-19, hypoxia 88% on RA in ED. Patient is fully vaccinated against Covid (Pfizer-May) exposed to Covid-19 at a wedding 1 week [employer], Symptoms onset 12/02/11 Was not candidate for Tocilizumab (CRP downtrending and outside of window to give from symptoms onset) Completed 5 days Remdesivir on 12/12 Completed 10 days of dexamethasone Completed full course of empiric abx therapy (rocephin/azithromycin) earlier in the course of hospitalization Initially requiring 3L O2 [place] hospital day #2-3, needing 5L but was stable 12/12 (days #12 of viral course)--> Acute hypoxemic respiratory failure (sats 70-80's)-- needed 10L oxymask for sats to recover Was continuing to improve, and was weaned down to 7 L oxygen mask on 12/15, however on 12/16 he was having epistaxis which then caused difficulty breathing through his nose and had to be placed back on oxygen mask at 10 L to recover On 12/17 was requiring 15 L oxygen mask to keep pulse ox greater than 88% and was placed on high flow nasal cannula at 40 L and 85% FiO2 Chest x-ray on 12/17 with progressed bilateral infiltrates On 12/18, requiring 50L and 85-90% FiO2, however as long as he lies on his side, his POx is 95-97%. Sats drop immediately with sitting up or any movement. On 12/19, still requiring 50 L but weaned down to 75% FiO2, with suspected secondary bacterial pneumonia given continued productive sputum, elevated procalcitonin of 2.8, CRP continues to go up to 16, persistent leukocytosis. Is afebrile. On 12/20-was weaned down to 6 L nasal cannula earlier in the day, but had severe desaturation to the mid 70s with getting to bedside commode-placed back on high flow nasal cannula 12/21 - initially on 30L and 40% FiO2, got him down to 6L wall high flow in the afternoon/evening, no distress 12/22 and 12/23 - stable on 4-5L mask, OOB in the chair CXR 12/22 with improved aeration in bases, less infiltrates 12/24 through 12/26, breathing much better, stable on 2L mask - IV Zosyn, started 12/19, for coverage for gram-negative pneumonia, completed 7 days on 12/25 - CRP down to 9 on 12/21 - MRSA swab negative-no need for vancomycin likely over COVID, now need to focus on therapy, getting stronger, working out discharge plan (2) Acute respiratory failure with hypoxia: Plan: marked improvement this week was on Vapotherm on 12/21, now down to 2L oxy mask the past three days and breathing much easier suspect he will need oxygen on discharge as well as pulmonary follow up CXR 12/23 with improved aeration, less infiltrates (3) GI bleed: Plan: dark stools began 12/23, had more melena, bloody BM night of 12/23 had some soft BP afternoon and evening, responded well to NSS bolus Hb drifted down slowly, is 8.1 this morning, will give one unit PRBC Lovenox and aspirin on hold since AM 12/24 Protonix 40mg IV BID appreciate GI consult, patient want to avoid EGD if possible no melena for over 48 hours, optimistic that it has stopped or slowing down can resume DVT prophylaxis after a week as well as aspirin (4) Acute blood loss anemia: Plan: Hb was 13 on 12/21, down to 10.8 on 12/22 slowly drifted down to 8.1 today will give one unit PRBC type and cross, O positive H/H in the morning (5) CKD (chronic kidney disease), stage III: Plan: Patient with history of CKD III Cr was up to 2.1 and BUN up to 60 on 101, suspect slight bump in numbers due to anemia, soft BP making urine via zeng Cr down to 1.9 and BUN down to 43, encouraging sign that bleeding has stopped (6) Leukocytosis: Plan: Likely with secondary bacterial pneumonia as above WBC down to 9k 12/21, no fever finished Zosyn, 7 days (7) Diabetes mellitus: Plan: Glimepiride and Metformin currently on hold Developed hypoglycemia for couple of days and insulin doses were decreased Dexamethasone course is now complete some hyperglycemia the past two days, eating a little more increased Lantus to 12 qAM and tighten carb ratio to 12, better coverage the past day (8) Hypothyroidism: Plan: Chronic, TSH normal earlier in 2020 -Continue Synthroid 100mcg po daily (9) Dyslipidemia: Plan: Chronic -Continue Atorvastatin 40 mg po daily (10) Hyperuricemia: Plan: Chronic -Continue Allopurinol daily - decreased dose to 200mg po daily for renal function (11) Hypertension: Plan: Blood pressure low normal, low at times with bleeding - lisinopril on hold (12) Oral candidiasis: Plan: Started nystatin swish and swallow on 12/20 x 10-day course throat pain is a lot better last day would be 12/29 (13) Depressed affect: Plan: frustrated being here, feels like he is never getting home daily encouragement, speaking with him at the bedside, talking about things besides hospitalization encouraged him to take it one day at a time he is in much better mood today, starting to believe that he is going to get out of here Plan: DVT prophylaxis- stopped Lovenox due to GI bleeding SCD Disposition-continued stay on telemetry status, now with GI bleed, likely looking at next week for discharge, might need rehab as he is so weak Admission and Anticipated Discharge Date Admission Date: December 06, 2020 Subjective Hb dropped a little bit to 8.2, will give a unit of PRBC Cr is back down to 1.9 from 2.1, making urine he is feeling much better today, breathing easier, more energy no melena he wants to get OOB into the chair later today, get moving with therapy again Review of Systems Review of Systems: All systems reviewed & are unremarkable except as noted in Subjective Constitutional: + weakness; no fever and no fatigue Respiratory: + cough and + dyspnea on exertion; no dyspnea and no sputum production Cardiovascular: no chest pain and no edema Gastrointestinal: no abdominal pain, no nausea, no vomiting, no constipation and no diarrhea/loose stools Physical Exam Physical Exam: General: well developed, well nourished, no acute distress, fatigued, frail appearing, pale conjunctiva Neck: supple, trachea midline, normal thyroid Lungs: clear to auscultation bilaterally, normal effort, no accessory muscle use, no distress Heart: regular S1 and S2, no murmur, peripheral pulses normal, capillary refill normal, no edema Abdomen: soft, NT, ND, + BS, no hepatomegaly, normal to percussion Extremities: normal in appearance, no cyanosis, no petechiae, strength generally declined, very weak Neuro: awake, cooperative, moves all extremities, no focal motor deficits, CN II-XII intact, sensation in extremities intact, normal speech Skin: warm, dry, no rash, normal turgor Psych: Awake, alert oriented x 3, depressed affect, very down Results & Data Results & Data ([facility]) Vital Signs (Past 12 Hours) Vital Signs Temp Pulse Pulse Pulse Resp BP BP 12/26/20 08:43 36.8 C 79 18 130/61 12/26/20 08:24 36.4 C L 73 18 100/57 L 12/26/20 07:44 36.8 C 66 18 110/55 L 12/26/20 06:36 36.5 C 73 20 12/26/20 03:35 36.9 C 72 12 109/55 L 12/25/20 23:19 37.3 C 75 34 H 136/51 L BP Pulse Ox 12/26/20 08:43 93 12/26/20 08:24 94 12/26/20 07:44 96 12/26/20 06:36 119/74 93 12/26/20 03:35 94 12/25/20 23:19 96 Laboratory Results Laboratory Results - last 24 hr 12/24/20 12/25/20 12/25/20 11:54 12:07 13:30 Hgb 8.9 L Hct 26.7 L Sodium Potassium Chloride Carbon Dioxide Anion Gap BUN Creatinine Est Cr Clr Drug Dosing Est GFR ( Amer) Est GFR (Non-Af Amer) BUN/Creatinine Ratio Glucose POC Glucose 181 H Calcium Blood Type O Positive Antibody Screen NEGATIVE Crossmatch See Detail 12/25/20 12/25/20 12/26/20 16:54 20:33 06:11 Hgb 8.2 L Hct 25.2 L Sodium Potassium Chloride Carbon Dioxide Anion Gap BUN Creatinine Est Cr Clr Drug Dosing Est GFR ( Amer) Est GFR (Non-Af Amer) BUN/Creatinine Ratio Glucose POC Glucose 149 H 209 H Calcium Blood Type Antibody Screen Crossmatch 12/26/20 12/26/20 06:11 07:33 Hgb Hct Sodium 140 Potassium 3.7 Chloride 109 H Carbon Dioxide 25 Anion Gap 5.0 BUN 43 H Creatinine 1.91 H Est Cr Clr Drug Dosing 38.0 Est GFR ( Amer) 38.9 Est GFR (Non-Af Amer) 33.5 BUN/Creatinine Ratio 22.7 H Glucose 198 H POC Glucose 222 H Calcium 7.7 L Blood Type Antibody Screen Crossmatch Medications Administered Current Inpatient Medications Acetaminophen (Acetaminophen 325 Mg Tab) 650 mg PO Q4H PRN PRN Reason: pain or fever Stop: 01/05/21 11:23 Albuterol (Albuterol Hfa 8 Gm Inhaler) 2 puffs INH Q4R PRN PRN Reason: Shortness Of Breath Or Wheezing Stop: 01/05/21 11:23 Last Admin: 12/13/20 07:24 Dose: 2 puffs Documented by: Albuterol (Albut/Ipratrop 3mg/0.5mg Neb 3 Ml Vial) 3 ml NEB Q2R PRN PRN Reason: Shortness Of Breath Or Wheezing Stop: 01/16/21 08:11 Allopurinol (Allopurinol 100 Mg Tab) 200 mg PO DAILY [facility] Stop: 01/05/21 11:23 Last Admin: 12/26/20 08:32 Dose: 200 mg Documented by: Atorvastatin Calcium (Atorvastatin 40 Mg Tab) 40 mg PO DAILY [facility] Stop: 01/05/21 11:23 Last Admin: 12/26/20 08:33 Dose: 40 mg Documented by: Benzonatate (Benzonatate 100 Mg Capsule) 100 mg PO TID PRN PRN Reason: cough Stop: 01/06/21 13:59 Dextrose (Dextrose 50% 50 Ml Syringe) 25 - 50 ml IV UD PRN; Protocol PRN Reason: Hypoglycemia Protocol Stop: 01/05/21 11:23 Glucagon (Glucagon For Inj 1 Mg Vial) 1 mg SQ UD PRN; Protocol PRN Reason: Hypoglycemia Protocol Stop: 01/05/21 11:23 Glucose (Glucose 10 Tabs/Tube) 4 - 8 tabs PO UD PRN; Protocol PRN Reason: Hypoglycemia Protocol Stop: 01/05/21 11:23 Glucose (Glucose 40% Gel 15 Gm Tube) 15 - 30 gm PO UD PRN; Protocol PRN Reason: Hypoglycemia Protocol Stop: 01/05/21 11:23 Piperacillin Sod/Tazobactam (Sod 4.5 gm/ Dextrose) 120 mls @ 30 mls/hr IV Q8H [facility]; Protocol Stop: 12/26/20 15:59 Last Admin: 12/26/20 08:51 Dose: 30 mls/hr Documented by: Pantoprazole Sodium 40 mg/ (Syringe) 10 mls @ 5 mls/min IV BID [facility] Stop: 01/23/21 08:59 Last Admin: 12/26/20 08:37 Dose: 5 mls/min Documented by: Sodium Chloride (Nss) 250 mls @ 15 mls/hr IV .[id number] PRN PRN Reason: For Transfusion Stop: 12/26/20 17:49 Insulin Aspart (Insulin Aspart 100 Units/Ml 3 Ml Pen) 0 units SC ACHS [facility] Stop: 01/05/21 11:23 Last Admin: 12/26/20 08:36 Dose: 8 units Documented by: Insulin Glargine (Insulin Glargine Solostar 100 Units/Ml 3 Ml Pen) 12 units SC QAM [facility] Stop: 01/25/21 08:59 Last Admin: 12/26/20 08:35 Dose: 12 units Documented by: Levothyroxine Sodium (Levothyroxine Sodium 100 Mcg Tablet) 100 mcg PO DAILYBB [facility] Stop: 01/05/21 11:23 Last Admin: 12/26/20 06:29 Dose: 100 mcg Documented by: Miscellaneous (Carbohydrates For Hypoglycemia ) 15 - 30 gm PO UD PRN PRN Reason: Hypoglycemia Protocol Stop: 01/05/21 11:23 Last Admin: 12/17/20 16:45 Dose: 15 gm Documented by: Miscellaneous Information (Piperacill/Tazobac Consult Active) 1 ea N/A UD PRN PRN Reason: Consult Stop: 12/26/20 15:59 Nystatin (Nystatin Susp 500,000 U/5 Ml Udc) 5 ml PO QID [facility] Stop: 12/30/20 17:59 Last Admin: 12/26/20 08:37 Dose: 5 ml Documented by: Ondansetron HCl (Ondansetron Inj 2 Mg/Ml 2 Ml Vial) 4 mg IV Q6H PRN PRN Reason: Nausea Stop: 01/05/21 11:23 Oxymetazoline HCl (Oxymetazoline 0.05% 30 Ml Btl) 1 sprays NA Q12 PRN PRN Reason: nasal congestion Stop: 01/13/21 09:44 Last Admin: 12/19/20 09:28 Dose: 1 sprays Documented by: Sodium Chloride (Sodium Chloride 0.65% Na Soln 45 Ml ([place])) 2 sprays NA Q2HWA PRN PRN Reason: Congestion Stop: 01/15/21 16:47 Last Admin: 12/24/20 09:31 Dose: 2 sprays Documented by: Zinc Sulfate (Zinc Sulfate 220 Mg Capsule) 220 mg PO QAM [facility] Stop: 01/07/21 08:59 Last Admin: 12/26/20 08:33 Dose: 220 mg Documented by: PG Care Time/CCT Total # of Minutes Spent Total Time Spent with Patient: Total time spent is greater than 50% in coordination of care (as documented) at patient's floor/unit and/or counseling patient: Coding Level of Care Code 50460 Subseq Hosp Care Lvl 3 Diagnoses COVID-19 U07.1 Acute respiratory failure with hypoxia J96.01 GI bleed K92.2 Acute blood loss anemia D62 CKD (chronic kidney disease), stage III N18.3 Leukocytosis D72.829 Diabetes mellitus E11.9 Hypothyroidism E03.9 Dyslipidemia E78.5 Hyperuricemia E79.0 Hypertension I10 Oral candidiasis B37.0 Depressed affect R45.89
[2020-12-27] MEDS: LEVOTHYROXINE SODIUM 100 MCG TABLET PO SCH (05:44)
[2020-12-27 08:11] LABS: Hematocrit (blood only) 31.1 % (42-52); Hemoglobin 10.2 g/dL (14.0-18.0); Mean Corpuscular Hgb Conc 32.8 g/dL (32-36); Mean Corpuscular Volume 94.5 fL (80-100); Mean Platelet Volume 9.5 fL (7.4-10.4); Platelet Count 204 K/uL (130-400); RDW Coefficient of Variation 14.7 % (11.5-14.5); RDW Standard Deviation 50.3 fL (36.4-46.3); Red Blood Count 3.29 M/uL (4.7-6.1); White Blood Count 9.17 K/uL (4.8-10.8)
[2020-12-27] MEDS: INSULIN ASPART 100 UNITS/ML 3 ML PEN SC SCH ×4 (08:33→21:41)
[2020-12-27] MEDS: NYSTATIN SUSP 500,000 U/5 ML UDC PO SCH ×4 (08:34→21:41)
[2020-12-27] MEDS: ATORVASTATIN 40 MG TAB PO SCH (08:34)
[2020-12-27] MEDS: ZINC SULFATE 220 MG CAPSULE PO SCH (08:34)
[2020-12-27] MEDS: allopurinoL 100 MG TAB PO SCH (08:35)
[2020-12-27] MEDS: INSULIN GLARGINE SOLOSTAR 100 UNITS/ML 3 ML PEN SC SCH (08:35)
[2020-12-27] MEDS: PANTOprazole 40 MG in SYRINGE 0 ML IV SCH (08:36)
[2020-12-27 08:40] LABS: BUN Creatinine Ratio 16.1 (10-20); Calcium 8.3 mg/dl (8.5-10.1); Creatinine Clr Calc Pharmacy 41.2 ml/min; Est GFR (African American) 42.9 ml/min; Potassium 3.4 mmol/L (3.5-5.1)
--- NOTE | 2020-12-27 08:59 | Hospitalist Progress Note ---
Date of Service December 27, 2020 Assessment & Plan (1) COVID-19: Plan: 75yo male with history of DM, HTN, CKD-III presenting with Covid-19, hypoxia 88% on RA in ED. Patient is fully vaccinated against Covid (Pfizer-May) exposed to Covid-19 at a wedding 1 week [employer], Symptoms onset 12/02/11 Was not candidate for Tocilizumab (CRP downtrending and outside of window to give from symptoms onset) Completed 5 days Remdesivir on 12/12 Completed 10 days of dexamethasone Completed full course of empiric abx therapy (rocephin/azithromycin) earlier in the course of hospitalization Initially requiring 3L O2 [place] hospital day #2-3, needing 5L but was stable 12/12 (days #12 of viral course)--> Acute hypoxemic respiratory failure (sats 70-80's)-- needed 10L oxymask for sats to recover Was continuing to improve, and was weaned down to 7 L oxygen mask on 12/15, however on 12/16 he was having epistaxis which then caused difficulty breathing through his nose and had to be placed back on oxygen mask at 10 L to recover On 12/17 was requiring 15 L oxygen mask to keep pulse ox greater than 88% and was placed on high flow nasal cannula at 40 L and 85% FiO2 Chest x-ray on 12/17 with progressed bilateral infiltrates On 12/18, requiring 50L and 85-90% FiO2, however as long as he lies on his side, his POx is 95-97%. Sats drop immediately with sitting up or any movement. On 12/19, still requiring 50 L but weaned down to 75% FiO2, with suspected secondary bacterial pneumonia given continued productive sputum, elevated procalcitonin of 2.8, CRP continues to go up to 16, persistent leukocytosis. Is afebrile. On 12/20-was weaned down to 6 L nasal cannula earlier in the day, but had severe desaturation to the mid 70s with getting to bedside commode-placed back on high flow nasal cannula 12/21 - initially on 30L and 40% FiO2, got him down to 6L wall high flow in the afternoon/evening, no distress 12/22 and 12/23 - stable on 4-5L mask, OOB in the chair CXR 12/22 with improved aeration in bases, less infiltrates 12/24 through 12/27, breathing much better, stable on 2-3L mask - IV Zosyn, started 12/19, for coverage for gram-negative pneumonia, completed 7 days on 12/25 - CRP down to 9 on 12/21 - MRSA swab negative-no need for vancomycin likely over COVID, now need to focus on therapy, getting stronger, working out discharge plan PT/OT ordered, work towards likely rehab, hopefully by mid week he is off negative pressure isolation (2) Acute respiratory failure with hypoxia: Plan: marked improvement this week was on Vapotherm on 12/21, now down to 2-3L oxy mask the past three days and breathing much easier suspect he will need oxygen on discharge as well as pulmonary follow up CXR 12/23 with improved aeration, less infiltrates (3) GI bleed: Plan: dark stools began 12/23, had more melena, bloody BM night of 12/23 had some soft BP afternoon and evening, responded well to NSS bolus Hb drifted down slowly, was 8.1 on 12/26, transfused one unit, it is 10 today Lovenox and aspirin on hold since AM 12/24, can resume on 12/30 Protonix 40mg IV BID, change to PO tomorrow would continue BID x 4 weeks then daily appreciate GI consult, patient want to avoid EGD if possible no melena for over 72 hours, optimistic that it has stopped, BUN going down from 60 to 20, another good sign (4) Acute blood loss anemia: Plan: Hb was 13 on 12/21, down to 10.8 on 12/22 slowly drifted down to 8.1 on 12/26 transfused one unit PRBC, now up to 10 BP stable (5) CKD (chronic kidney disease), stage III: Plan: Patient with history of CKD III Cr was up to 2.1 and BUN up to 60 on 12/25, suspect slight bump in numbers due to anemia, soft BP making urine via zeng Cr down to 1.7 and BUN down to 20's, encouraging sign that bleeding has stopped pull zeng on 12/27 to make sure he can urinate (6) Leukocytosis: Plan: Likely with secondary bacterial pneumonia as above WBC down to 9k 12/21, no fever finished Zosyn, 7 days (7) Diabetes mellitus: Plan: Glimepiride and Metformin currently on hold Developed hypoglycemia for couple of days and insulin doses were decreased Dexamethasone course is now complete some hyperglycemia the past two days, eating a little more increased Lantus to 12 qAM and tighten carb ratio to 12, better coverage the past day (8) Hypothyroidism: Plan: Chronic, TSH normal earlier in 2020 -Continue Synthroid 100mcg po daily (9) Dyslipidemia: Plan: Chronic -Continue Atorvastatin 40 mg po daily (10) Hyperuricemia: Plan: Chronic -Continue Allopurinol daily - decreased dose to 200mg po daily for renal function (11) Hypertension: Plan: Blood pressure low normal, low at times with bleeding - lisinopril on hold (12) Oral candidiasis: Plan: Started nystatin swish and swallow on 12/20 x 10-day course throat pain is a lot better last day would be 12/29 (13) Depressed affect: Plan: frustrated being here, feels like he is never getting home daily encouragement, speaking with him at the bedside, talking about things besides hospitalization encouraged him to take it one day at a time he is in much better mood today, starting to believe that he is going to get out of here Plan: DVT prophylaxis- stopped Lovenox due to GI bleeding SCD Disposition-continued stay on telemetry status, COVID is resolved, GI bleed appears to be resolved PT/OT consults, try for rehab mid week Admission and Anticipated Discharge Date Admission Date: December 06, 2020 Subjective patient doing great, this is the best I have seen him look all week no melena or dark stools Hb up to 10, Cr down to 1.7, making urine, will pull zeng today breathing well on 2-3L via mask able to sit up on his own at the edge of the bed will get formal PT/OT, anticipate he may need rehab eating well, no nausea/vomiting, no fevers Review of Systems Review of Systems: All systems reviewed & are unremarkable except as noted in Subjective Constitutional: no fever, no fatigue and no weakness Respiratory: + dyspnea on exertion; no cough Physical Exam Physical Exam: General: well developed, well nourished, no acute distress, comfortable Neck: supple, trachea midline, normal thyroid Lungs: clear to auscultation bilaterally, normal effort, no accessory muscle use, no distress Heart: regular S1 and S2, no murmur, peripheral pulses normal, capillary refill normal, no edema Abdomen: soft, NT, ND, + BS, no hepatomegaly, normal to percussion Extremities: normal in appearance, no cyanosis, no petechiae, strength generally declined, very weak Neuro: awake, cooperative, moves all extremities, no focal motor deficits, CN II-XII intact, sensation in extremities intact, normal speech Skin: warm, dry, no rash, normal turgor Psych: Awake, alert oriented x 3, depressed affect, very down Results & Data Results & Data ([facility]) Vital Signs (Past 12 Hours) Vital Signs Temp Pulse Pulse Pulse Resp BP Pulse Ox 12/27/20 07:58 36.7 C 69 18 118/64 94 12/27/20 04:16 36.8 C 61 18 121/62 94 12/27/20 01:30 69 12/27/20 01:07 69 22 92 12/27/20 00:24 98 12/26/20 23:57 36.5 C 67 18 138/65 98 Laboratory Results Laboratory Results - last 24 hr 12/24/20 12/26/20 12/26/20 11:54 11:02 16:42 WBC RBC Hgb Hct MCV MCH MCHC RDW Std Deviation RDW Coeff of Donna Plt Count MPV Sodium Potassium Chloride Carbon Dioxide Anion Gap BUN Creatinine Est Cr Clr Drug Dosing Est GFR ( Amer) Est GFR (Non-Af Amer) BUN/Creatinine Ratio Glucose POC Glucose 241 H 175 H Calcium Stool Occult Bld Scrn Crossmatch See Detail 12/26/20 12/27/20 12/27/20 20:22 06:30 07:28 WBC RBC Hgb Hct MCV MCH MCHC RDW Std Deviation RDW Coeff of Donna Plt Count MPV Sodium Potassium Chloride Carbon Dioxide Anion Gap BUN Creatinine Est Cr Clr Drug Dosing Est GFR ( Amer) Est GFR (Non-Af Amer) BUN/Creatinine Ratio Glucose POC Glucose 184 H 221 H Calcium Stool Occult Bld Scrn Positive A Crossmatch 12/27/20 12/27/20 07:58 07:59 WBC 9.17 RBC 3.29 L Hgb 10.2 L Hct 31.1 L MCV 94.5 MCH 31.0 MCHC 32.8 RDW Std Deviation 50.3 H RDW Coeff of Donna 14.7 H Plt Count 204 MPV 9.5 Sodium 141 Potassium 3.4 L Chloride 106 Carbon Dioxide 26 Anion Gap 9.0 BUN 28 H Creatinine 1.76 H Est Cr Clr Drug Dosing 41.2 Est GFR ( Amer) 42.9 Est GFR (Non-Af Amer) 37.0 BUN/Creatinine Ratio 16.1 Glucose 244 H POC Glucose Calcium 8.3 L Stool Occult Bld Scrn Crossmatch Medications Administered Current Inpatient Medications Acetaminophen (Acetaminophen 325 Mg Tab) 650 mg PO Q4H PRN PRN Reason: pain or fever Stop: 01/05/21 11:23 Albuterol (Albuterol Hfa 8 Gm Inhaler) 2 puffs INH Q4R PRN PRN Reason: Shortness Of Breath Or Wheezing Stop: 01/05/21 11:23 Last Admin: 12/13/20 07:24 Dose: 2 puffs Documented by: Albuterol (Albut/Ipratrop 3mg/0.5mg Neb 3 Ml Vial) 3 ml NEB Q2R PRN PRN Reason: Shortness Of Breath Or Wheezing Stop: 01/16/21 08:11 Allopurinol (Allopurinol 100 Mg Tab) 200 mg PO DAILY [facility] Stop: 01/05/21 11:23 Last Admin: 12/27/20 08:35 Dose: 200 mg Documented by: Atorvastatin Calcium (Atorvastatin 40 Mg Tab) 40 mg PO DAILY [facility] Stop: 01/05/21 11:23 Last Admin: 12/27/20 08:34 Dose: 40 mg Documented by: Benzonatate (Benzonatate 100 Mg Capsule) 100 mg PO TID PRN PRN Reason: cough Stop: 01/06/21 13:59 Dextrose (Dextrose 50% 50 Ml Syringe) 25 - 50 ml IV UD PRN; Protocol PRN Reason: Hypoglycemia Protocol Stop: 01/05/21 11:23 Glucagon (Glucagon For Inj 1 Mg Vial) 1 mg SQ UD PRN; Protocol PRN Reason: Hypoglycemia Protocol Stop: 01/05/21 11:23 Glucose (Glucose 10 Tabs/Tube) 4 - 8 tabs PO UD PRN; Protocol PRN Reason: Hypoglycemia Protocol Stop: 01/05/21 11:23 Glucose (Glucose 40% Gel 15 Gm Tube) 15 - 30 gm PO UD PRN; Protocol PRN Reason: Hypoglycemia Protocol Stop: 01/05/21 11:23 Pantoprazole Sodium 40 mg/ (Syringe) 10 mls @ 5 mls/min IV BID [facility] Stop: 01/23/21 08:59 Last Admin: 12/27/20 08:36 Dose: 5 mls/min Documented by: Insulin Aspart (Insulin Aspart 100 Units/Ml 3 Ml Pen) 0 units SC ACHS [facility] Stop: 01/05/21 11:23 Last Admin: 12/27/20 08:33 Dose: 7 units Documented by: Insulin Glargine (Insulin Glargine Solostar 100 Units/Ml 3 Ml Pen) 12 units SC QAM [facility] Stop: 01/25/21 08:59 Last Admin: 12/27/20 08:35 Dose: 12 units Documented by: Levothyroxine Sodium (Levothyroxine Sodium 100 Mcg Tablet) 100 mcg PO DAILYBB [facility] Stop: 01/05/21 11:23 Last Admin: 12/27/20 05:44 Dose: 100 mcg Documented by: Miscellaneous (Carbohydrates For Hypoglycemia ) 15 - 30 gm PO UD PRN PRN Reason: Hypoglycemia Protocol Stop: 01/05/21 11:23 Last Admin: 12/17/20 16:45 Dose: 15 gm Documented by: Nystatin (Nystatin Susp 500,000 U/5 Ml Udc) 5 ml PO QID [facility] Stop: 12/30/20 17:59 Last Admin: 12/27/20 08:34 Dose: 5 ml Documented by: Ondansetron HCl (Ondansetron Inj 2 Mg/Ml 2 Ml Vial) 4 mg IV Q6H PRN PRN Reason: Nausea Stop: 01/05/21 11:23 Oxymetazoline HCl (Oxymetazoline 0.05% 30 Ml Btl) 1 sprays NA Q12 PRN PRN Reason: nasal congestion Stop: 01/13/21 09:44 Last Admin: 12/19/20 09:28 Dose: 1 sprays Documented by: Sodium Chloride (Sodium Chloride 0.65% Na Soln 45 Ml ([place])) 2 sprays NA Q2HWA PRN PRN Reason: Congestion Stop: 01/15/21 16:47 Last Admin: 12/24/20 09:31 Dose: 2 sprays Documented by: Zinc Sulfate (Zinc Sulfate 220 Mg Capsule) 220 mg PO QAM [facility] Stop: 01/07/21 08:59 Last Admin: 12/27/20 08:34 Dose: 220 mg Documented by: PG Care Time/CCT Total # of Minutes Spent Total Time Spent with Patient: Total time spent is greater than 50% in coordination of care (as documented) at patient's floor/unit and/or counseling patient: Coding Level of Care Code 92878 Subseq Hosp Care Lvl 3 Diagnoses COVID-19 U07.1 Acute respiratory failure with hypoxia J96.01 GI bleed K92.2 Acute blood loss anemia D62 CKD (chronic kidney disease), stage III N18.3 Leukocytosis D72.829 Diabetes mellitus E11.9 Hypothyroidism E03.9 Dyslipidemia E78.5 Hyperuricemia E79.0 Hypertension I10 Oral candidiasis B37.0 Depressed affect R45.89
[2020-12-28] MEDS: LEVOTHYROXINE SODIUM 100 MCG TABLET PO SCH (05:59)
[2020-12-28] MEDS: INSULIN ASPART 100 UNITS/ML 3 ML PEN SC SCH ×4 (08:31→21:28)
[2020-12-28] MEDS: PANTOprazole 40 MG TAB PO SCH ×2 (08:32→19:35)
[2020-12-28] MEDS: ATORVASTATIN 40 MG TAB PO SCH (08:33)
[2020-12-28] MEDS: allopurinoL 100 MG TAB PO SCH (08:33)
[2020-12-28] MEDS: ZINC SULFATE 220 MG CAPSULE PO SCH (08:33)
[2020-12-28] MEDS: INSULIN GLARGINE SOLOSTAR 100 UNITS/ML 3 ML PEN SC SCH (08:33)
[2020-12-28] MEDS: NYSTATIN SUSP 500,000 U/5 ML UDC PO SCH ×4 (08:34→21:28)
--- NOTE | 2020-12-28 22:03 | Hospitalist Progress Note ---
Date of Service December 28, 2020 Assessment & Plan (1) COVID-19: Plan: 75yo male with history of DM, HTN, CKD-III presenting with Covid-19, hypoxia 88% on RA in ED. 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 Was not candidate for Tocilizumab (CRP downtrending and outside of window to give from symptoms onset) Completed 5 days Remdesivir on 12/12 Completed 10 days of dexamethasone Completed full course of empiric abx therapy (rocephin/azithromycin) earlier in the course of hospitalization Initially requiring 3L O2 [place] hospital day #2-3, needing 5L but was stable 12/12 (days #12 of viral course)--> Acute hypoxemic respiratory failure (sats 70-80's)-- needed 10L oxymask for sats to recover Was continuing to improve, and was weaned down to 7 L oxygen mask on 12/15, however on 12/16 he was having epistaxis which then caused difficulty breathing through his nose and had to be placed back on oxygen mask at 10 L to recover On 12/17 was requiring 15 L oxygen mask to keep pulse ox greater than 88% and was placed on high flow nasal cannula at 40 L and 85% FiO2 Chest x-ray on 12/17 with progressed bilateral infiltrates On 12/18, requiring 50L and 85-90% FiO2, however as long as he lies on his side, his POx is 95-97%. Sats drop immediately with sitting up or any movement. On 12/19, still requiring 50 L but weaned down to 75% FiO2, with suspected secondary bacterial pneumonia given continued productive sputum, elevated procalcitonin of 2.8, CRP continues to go up to 16, persistent leukocytosis. Is afebrile. On 12/20-was weaned down to 6 L nasal cannula earlier in the day, but had severe desaturation to the mid 70s with getting to bedside commode-placed back on high flow nasal cannula 12/21 - initially on 30L and 40% FiO2, got him down to 6L wall high flow in the afternoon/evening, no distress 12/22 and 12/23 - stable on 4-5L mask, OOB in the chair CXR 12/22 with improved aeration in bases, less infiltrates 12/24 through 12/27, breathing much better, stable on 2-3L mask - IV Zosyn, started 12/19, for coverage for gram-negative pneumonia, completed 7 days on 12/25 - CRP down to 9 on 12/21 - MRSA swab negative-no need for vancomycin likely over COVID, now need to focus on therapy, getting stronger, working out discharge plan PT/OT ordered, work towards likely rehab, hopefully by mid week he is off negative pressure isolation Awaiting possibility of rehab (2) Acute respiratory failure with hypoxia: Plan: marked improvement this week was on Vapotherm on 12/21, now down to 2-3L oxy mask the past three days and breathing much easier suspect he will need oxygen on discharge as well as pulmonary follow up CXR 12/23 with improved aeration, less infiltrates (3) GI bleed: Plan: dark stools began 12/23, had more melena, bloody BM night of 12/23 had some soft BP afternoon and evening, responded well to NSS bolus Hb drifted down slowly, was 8.1 on 12/26, transfused one unit, it is 10 today Lovenox and aspirin on hold since AM 12/24, can resume on 12/30 Protonix 40mg IV BID, change to PO tomorrow would continue BID x 4 weeks then daily appreciate GI consult, patient want to avoid EGD if possible no melena for over 72 hours, optimistic that it has stopped, BUN going down from 60 to 20, another good sign (4) Acute blood loss anemia: Plan: Hb was 13 on 12/21, down to 10.8 on 12/22 slowly drifted down to 8.1 on 12/26 transfused one unit PRBC, now up to 10 BP stable (5) CKD (chronic kidney disease), stage III: Plan: Patient with history of CKD III Cr was up to 2.1 and BUN up to 60 on 12/25, suspect slight bump in numbers due to anemia, soft BP making urine via zeng Cr down to 1.7 and BUN down to 20's, encouraging sign that bleeding has stopped pull zeng on 12/27 to make sure he can urinate (6) Leukocytosis: Plan: Likely with secondary bacterial pneumonia as above WBC down to 9k 12/21, no fever finished Zosyn, 7 days (7) Diabetes mellitus: Plan: Glimepiride and Metformin currently on hold Developed hypoglycemia for couple of days and insulin doses were decreased Dexamethasone course is now complete some hyperglycemia the past two days, eating a little more increased Lantus to 12 qAM and tighten carb ratio to 12, better coverage the past day (8) Hypothyroidism: Plan: Chronic, TSH normal earlier in 2020 -Continue Synthroid 100mcg po daily (9) Dyslipidemia: Plan: Chronic -Continue Atorvastatin 40 mg po daily (10) Hyperuricemia: Plan: Chronic -Continue Allopurinol daily - decreased dose to 200mg po daily for renal function (11) Hypertension: Plan: Blood pressure low normal, low at times with bleeding - lisinopril on hold (12) Oral candidiasis: Plan: Started nystatin swish and swallow on 12/20 x 10-day course throat pain is a lot better last day would be 12/29 (13) Depressed affect: Plan: frustrated being here, feels like he is never getting home daily encouragement, speaking with him at the bedside, talking about things besides hospitalization encouraged him to take it one day at a time he is in much better mood today, starting to believe that he is going to get out of here Plan: DVT prophylaxis- stopped Lovenox due to GI bleeding SCD Disposition-continued stay on telemetry status, COVID is resolved, GI bleed appears to be resolved PT/OT consults, try for rehab mid week Admission and Anticipated Discharge Date Admission Date: December 06, 2020 Subjective Patient reports he is getting stronger. Review of Systems Review of Systems: All systems reviewed & are unremarkable except as noted in HPI & below Physical Exam Physical Exam: General: well developed, well nourished, no acute distress, comfortable Neck: supple, trachea midline, normal thyroid Lungs: clear to auscultation bilaterally, normal effort, no accessory muscle use, no distress Heart: regular S1 and S2, no murmur, peripheral pulses normal, capillary refill normal, no edema Abdomen: soft, NT, ND, + BS, no hepatomegaly, normal to percussion Extremities: normal in appearance, no cyanosis, no petechiae Neuro: awake, cooperative, moves all extremities, no focal motor deficits, CN II-XII intact, sensation in extremities intact, normal speech Skin: warm, dry, no rash, normal turgor Psych: Awake, alert oriented x 3, depressed affect, very down Results & Data Results & Data ([facility]) Vital Signs (Past 12 Hours) Vital Signs Temp Pulse Resp BP Pulse Ox Pulse Ox Pulse Ox 12/28/20 20:47 36.7 C 73 20 154/71 H 97 12/28/20 15:22 36.9 C 73 17 92/58 L 97 12/28/20 11:49 96 95 12/28/20 11:47 36.7 C 73 18 119/67 97 12/28/20 10:43 36.5 C 65 18 134/71 97 Pulse Ox Pulse Ox 12/28/20 20:47 12/28/20 15:22 12/28/20 11:49 92 85 L 12/28/20 11:47 12/28/20 10:43 PG Care Time/CCT Total # of Minutes Spent Total Time Spent with Patient: Total time spent is greater than 50% in coordination of care (as documented) at patient's floor/unit and/or counseling patient: Coding Level of Care Code 91842 Subseq Hosp Care Lvl 2 Diagnoses COVID-19 U07.1 Acute respiratory failure with hypoxia J96.01 GI bleed K92.2 Acute blood loss anemia D62 CKD (chronic kidney disease), stage III N18.3 Leukocytosis D72.829 Diabetes mellitus E11.9 Hypothyroidism E03.9 Dyslipidemia E78.5 Hyperuricemia E79.0 Hypertension I10 Oral candidiasis B37.0 Depressed affect R45.89 Time Spent (min) 25
[2020-12-29] MEDS: ALBUTEROL HFA 8 GM INHALER INH PRN (00:06)
[2020-12-29] MEDS: LEVOTHYROXINE SODIUM 100 MCG TABLET PO SCH (06:41)
[2020-12-29] MEDS: NYSTATIN SUSP 500,000 U/5 ML UDC PO SCH ×4 (08:04→21:21)
[2020-12-29] MEDS: allopurinoL 100 MG TAB PO SCH (08:04)
[2020-12-29] MEDS: ATORVASTATIN 40 MG TAB PO SCH (08:04)
[2020-12-29] MEDS: ZINC SULFATE 220 MG CAPSULE PO SCH (08:04)
[2020-12-29] MEDS: PANTOprazole 40 MG TAB PO SCH ×2 (08:05→21:21)
[2020-12-29] MEDS: INSULIN GLARGINE SOLOSTAR 100 UNITS/ML 3 ML PEN SC SCH (08:06)
[2020-12-29] MEDS: INSULIN ASPART 100 UNITS/ML 3 ML PEN SC SCH ×4 (08:07→21:28)
[2020-12-29] MEDS: SODIUM CHLORIDE 0.65% NA SOLN 45 ML (OCEAN) PRN (08:09)
--- NOTE | 2020-12-29 20:13 | Hospitalist Progress Note ---
Date of Service December 29, 2020 Assessment & Plan (1) COVID-19: Plan: 75yo male with history of DM, HTN, CKD-III presenting with Covid-19, hypoxia 88% on RA in ED. 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 Was not candidate for Tocilizumab (CRP downtrending and outside of window to give from symptoms onset) Completed 5 days Remdesivir on 12/12 Completed 10 days of dexamethasone Completed full course of empiric abx therapy (rocephin/azithromycin) earlier in the course of hospitalization Initially requiring 3L O2 [place] hospital day #2-3, needing 5L but was stable 12/12 (days #12 of viral course)--> Acute hypoxemic respiratory failure (sats 70-80's)-- needed 10L oxymask for sats to recover Was continuing to improve, and was weaned down to 7 L oxygen mask on 12/15, however on 12/16 he was having epistaxis which then caused difficulty breathing through his nose and had to be placed back on oxygen mask at 10 L to recover On 12/17 was requiring 15 L oxygen mask to keep pulse ox greater than 88% and was placed on high flow nasal cannula at 40 L and 85% FiO2 Chest x-ray on 12/17 with progressed bilateral infiltrates On 12/18, requiring 50L and 85-90% FiO2, however as long as he lies on his side, his POx is 95-97%. Sats drop immediately with sitting up or any movement. On 12/19, still requiring 50 L but weaned down to 75% FiO2, with suspected secondary bacterial pneumonia given continued productive sputum, elevated procalcitonin of 2.8, CRP continues to go up to 16, persistent leukocytosis. Is afebrile. On 12/20-was weaned down to 6 L nasal cannula earlier in the day, but had severe desaturation to the mid 70s with getting to bedside commode-placed back on high flow nasal cannula 12/21 - initially on 30L and 40% FiO2, got him down to 6L wall high flow in the afternoon/evening, no distress 12/22 and 12/23 - stable on 4-5L mask, OOB in the chair CXR 12/22 with improved aeration in bases, less infiltrates 12/24 through 12/27, breathing much better, stable on 2-3L mask - IV Zosyn, started 12/19, for coverage for gram-negative pneumonia, completed 7 days on 12/25 - CRP down to 9 on 12/21 - MRSA swab negative-no need for vancomycin likely over COVID, now need to focus on therapy, getting stronger, working out discharge plan PT/OT ordered, work towards likely rehab, hopefully by mid week he is off negative pressure isolation Patient is currently refusing rehab. CUrrently on 2 liter nasal cannula. will continue to monitor. (2) Acute respiratory failure with hypoxia: Plan: marked improvement this week was on Vapotherm on 12/21, now down to 2-3L oxy mask the past three days and breathing much easier suspect he will need oxygen on discharge as well as pulmonary follow up CXR 12/23 with improved aeration, less infiltrates (3) GI bleed: Plan: dark stools began 12/23, had more melena, bloody BM night of 12/23 had some soft BP afternoon and evening, responded well to NSS bolus Hb drifted down slowly, was 8.1 on 12/26, transfused one unit, it is 10 today Lovenox and aspirin on hold since AM 12/24, can resume on 12/30 Protonix 40mg IV BID, change to PO tomorrow would continue BID x 4 weeks then daily appreciate GI consult, patient want to avoid EGD if possible no melena for over 72 hours, optimistic that it has stopped, BUN going down from 60 to 20, another good sign (4) Acute blood loss anemia: Plan: Hb was 13 on 12/21, down to 10.8 on 12/22 slowly drifted down to 8.1 on 12/26 transfused one unit PRBC, now up to 10 BP stable (5) CKD (chronic kidney disease), stage III: Plan: Patient with history of CKD III Cr was up to 2.1 and BUN up to 60 on 12/25, suspect slight bump in numbers due to anemia, soft BP making urine via zeng Cr down to 1.7 and BUN down to 20's, encouraging sign that bleeding has stopped pull zeng on 12/27 to make sure he can urinate (6) Leukocytosis: Plan: Likely with secondary bacterial pneumonia as above WBC down to 9k 12/21, no fever finished Zosyn, 7 days (7) Diabetes mellitus: Plan: Glimepiride and Metformin currently on hold Developed hypoglycemia for couple of days and insulin doses were decreased Dexamethasone course is now complete some hyperglycemia the past two days, eating a little more increased Lantus to 12 qAM and tighten carb ratio to 12, better coverage the past day (8) Hypothyroidism: Plan: Chronic, TSH normal earlier in 2020 -Continue Synthroid 100mcg po daily (9) Dyslipidemia: Plan: Chronic -Continue Atorvastatin 40 mg po daily (10) Hyperuricemia: Plan: Chronic -Continue Allopurinol daily - decreased dose to 200mg po daily for renal function (11) Hypertension: Plan: Blood pressure low normal, low at times with bleeding - lisinopril on hold (12) Oral candidiasis: Plan: Started nystatin swish and swallow on 12/20 x 10-day course throat pain is a lot better last day would be 12/29 (13) Depressed affect: Plan: frustrated being here, feels like he is never getting home daily encouragement, speaking with him at the bedside, talking about things besides hospitalization encouraged him to take it one day at a time he is in much better mood today, starting to believe that he is going to get out of here Plan: DVT prophylaxis- stopped Lovenox due to GI bleeding SCD Disposition-continued stay on telemetry status, COVID is resolved, GI bleed appears to be resolved PT/OT consults, try for rehab mid week Admission and Anticipated Discharge Date Admission Date: December 06, 2020 Subjective Patient reports feeling well. He still reports hvaing some weakness when he ambulates. Review of Systems Review of Systems: All systems reviewed & are unremarkable except as noted in HPI & below Physical Exam Physical Exam: General: well developed, well nourished, no acute distress, comfortable Neck: supple, trachea midline, normal thyroid Lungs: clear to auscultation bilaterally, normal effort, no accessory muscle use, no distress Heart: regular S1 and S2, no murmur, peripheral pulses normal, capillary refill normal, no edema Abdomen: soft, NT, ND, + BS, no hepatomegaly, normal to percussion Extremities: normal in appearance, no cyanosis, no petechiae Neuro: awake, cooperative, moves all extremities, no focal motor deficits, CN II-XII intact, sensation in extremities intact, normal speech Skin: warm, dry, no rash, normal turgor Psych: Awake, alert oriented x 3 Results & Data Results & Data ([facility]) Vital Signs (Past 12 Hours) Vital Signs Temp Pulse Pulse Resp BP BP Pulse Ox 12/29/20 19:42 37.0 C 84 20 113/70 94 12/29/20 15:40 76 12/29/20 15:15 37.1 C 77 20 124/67 96 12/29/20 11:07 36.8 C 70 17 129/75 95 PG Care Time/CCT Total # of Minutes Spent Total Time Spent with Patient: Total time spent is greater than 50% in coordination of care (as documented) at patient's floor/unit and/or counseling patient: Coding Level of Care Code 46245 Subseq Hosp Care Lvl 2 Diagnoses COVID-19 U07.1 Acute respiratory failure with hypoxia J96.01 GI bleed K92.2 Acute blood loss anemia D62 CKD (chronic kidney disease), stage III N18.3 Leukocytosis D72.829 Diabetes mellitus E11.9 Hypothyroidism E03.9 Dyslipidemia E78.5 Hyperuricemia E79.0 Hypertension I10 Oral candidiasis B37.0 Depressed affect R45.89
[2020-12-30] MEDS: LEVOTHYROXINE SODIUM 100 MCG TABLET PO SCH (06:10)
[2020-12-30 06:25] LABS: Hematocrit (blood only) 28.8 % (42-52); Hemoglobin 9.6 g/dL (14.0-18.0); Mean Corpuscular Hemoglobin 31.4 pg (25-34); Mean Corpuscular Hgb Conc 33.3 g/dL (32-36); Mean Corpuscular Volume 94.1 fL (80-100); Mean Platelet Volume 9.3 fL (7.4-10.4); Platelet Count 290 K/uL (130-400); RDW Coefficient of Variation 15.5 % (11.5-14.5); RDW Standard Deviation 50.4 fL (36.4-46.3); Red Blood Count 3.06 M/uL (4.7-6.1); White Blood Count 5.47 K/uL (4.8-10.8)
[2020-12-30 06:56] LABS: BUN Creatinine Ratio 14.6 (10-20); Calcium 8.7 mg/dl (8.5-10.1); Creatinine Clr Calc Pharmacy 48.8 ml/min; Est GFR (African American) 51.6 ml/min; Est GFR (Non-African American) 44.5 ml/min; Potassium 3.9 mmol/L (3.5-5.1)
[2020-12-30] MEDS: NYSTATIN SUSP 500,000 U/5 ML UDC PO SCH ×3 (08:19→18:11)
[2020-12-30] MEDS: allopurinoL 100 MG TAB PO SCH (08:21)
[2020-12-30] MEDS: PANTOprazole 40 MG TAB PO SCH ×2 (08:21→20:43)
[2020-12-30] MEDS: ATORVASTATIN 40 MG TAB PO SCH (08:21)
[2020-12-30] MEDS: SODIUM CHLORIDE 0.65% NA SOLN 45 ML (OCEAN) PRN (08:22)
[2020-12-30] MEDS: INSULIN ASPART 100 UNITS/ML 3 ML PEN SC SCH ×4 (08:23→20:42)
[2020-12-30] MEDS: INSULIN GLARGINE SOLOSTAR 100 UNITS/ML 3 ML PEN SC SCH (08:24)
[2020-12-30] MEDS: ZINC SULFATE 220 MG CAPSULE PO SCH (09:47)
--- NOTE | 2020-12-30 20:53 | Hospitalist Progress Note ---
Date of Service December 30, 2020 Assessment & Plan (1) COVID-19: Plan: 75yo male with history of DM, HTN, CKD-III presenting with Covid-19, hypoxia 88% on RA in ED. 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 Was not candidate for Tocilizumab (CRP downtrending and outside of window to give from symptoms onset) Completed 5 days Remdesivir on 12/12 Completed 10 days of dexamethasone Completed full course of empiric abx therapy (rocephin/azithromycin) earlier in the course of hospitalization Initially requiring 3L O2 [place] hospital day #2-3, needing 5L but was stable 12/12 (days #12 of viral course)--> Acute hypoxemic respiratory failure (sats 70-80's)-- needed 10L oxymask for sats to recover Was continuing to improve, and was weaned down to 7 L oxygen mask on 12/15, however on 12/16 he was having epistaxis which then caused difficulty breathing through his nose and had to be placed back on oxygen mask at 10 L to recover On 12/17 was requiring 15 L oxygen mask to keep pulse ox greater than 88% and was placed on high flow nasal cannula at 40 L and 85% FiO2 Chest x-ray on 12/17 with progressed bilateral infiltrates On 12/18, requiring 50L and 85-90% FiO2, however as long as he lies on his side, his POx is 95-97%. Sats drop immediately with sitting up or any movement. On 12/19, still requiring 50 L but weaned down to 75% FiO2, with suspected secondary bacterial pneumonia given continued productive sputum, elevated procalcitonin of 2.8, CRP continues to go up to 16, persistent leukocytosis. Is afebrile. On 12/20-was weaned down to 6 L nasal cannula earlier in the day, but had severe desaturation to the mid 70s with getting to bedside commode-placed back on high flow nasal cannula 12/21 - initially on 30L and 40% FiO2, got him down to 6L wall high flow in the afternoon/evening, no distress 12/22 and 12/23 - stable on 4-5L mask, OOB in the chair CXR 12/22 with improved aeration in bases, less infiltrates 12/24 through 12/27, breathing much better, stable on 2-3L mask - IV Zosyn, started 12/19, for coverage for gram-negative pneumonia, completed 7 days on 12/25 - CRP down to 9 on 12/21 - MRSA swab negative-no need for vancomycin likely over COVID, now need to focus on therapy, getting stronger, working out discharge plan PT/OT ordered, work towards likely rehab, hopefully by mid week he is off negative pressure isolation Patient is currently refusing rehab. CUrrently on 2 liter nasal cannula. will do 2 step in AM. (2) Acute respiratory failure with hypoxia: Plan: marked improvement this week was on Vapotherm on 12/21, now down to 2-3L oxy mask the past three days and breathing much easier suspect he will need oxygen on discharge as well as pulmonary follow up CXR 12/23 with improved aeration, less infiltrates (3) GI bleed: Plan: dark stools began 12/23, had more melena, bloody BM night of 12/23 had some soft BP afternoon and evening, responded well to NSS bolus Hb drifted down slowly, was 8.1 on 12/26, transfused one unit, it is 10 today Lovenox and aspirin on hold since AM 12/24, can resume on 12/30 Protonix 40mg IV BID, change to PO tomorrow would continue BID x 4 weeks then daily appreciate GI consult, patient want to avoid EGD if possible no melena for over 72 hours, optimistic that it has stopped, BUN going down from 60 to 20, another good sign (4) Acute blood loss anemia: Plan: Hb was 13 on 12/21, down to 10.8 on 12/22 slowly drifted down to 8.1 on 12/26 transfused one unit PRBC, now up to 10 BP stable (5) CKD (chronic kidney disease), stage III: Plan: Patient with history of CKD III Cr was up to 2.1 and BUN up to 60 on 12/25, suspect slight bump in numbers due to anemia, soft BP making urine via zeng Cr down to 1.7 and BUN down to 20's, encouraging sign that bleeding has stopped pull zeng on 12/27 to make sure he can urinate (6) Leukocytosis: Plan: Likely with secondary bacterial pneumonia as above WBC down to 9k 12/21, no fever finished Zosyn, 7 days (7) Diabetes mellitus: Plan: Glimepiride and Metformin currently on hold Developed hypoglycemia for couple of days and insulin doses were decreased Dexamethasone course is now complete some hyperglycemia the past two days, eating a little more increased Lantus to 12 qAM and tighten carb ratio to 12, better coverage the past day (8) Hypothyroidism: Plan: Chronic, TSH normal earlier in 2020 -Continue Synthroid 100mcg po daily (9) Dyslipidemia: Plan: Chronic -Continue Atorvastatin 40 mg po daily (10) Hyperuricemia: Plan: Chronic -Continue Allopurinol daily - decreased dose to 200mg po daily for renal function (11) Hypertension: Plan: Blood pressure low normal, low at times with bleeding - lisinopril on hold (12) Oral candidiasis: Plan: Started nystatin swish and swallow on 12/20 x 10-day course throat pain is a lot better last day would be 12/29 (13) Depressed affect: Plan: frustrated being here, feels like he is never getting home daily encouragement, speaking with him at the bedside, talking about things besides hospitalization encouraged him to take it one day at a time he is in much better mood today, starting to believe that he is going to get out of here Plan: DVT prophylaxis- stopped Lovenox due to GI bleeding SCD Disposition-continued stay on telemetry status, COVID is resolved, GI bleed appears to be resolved PT/OT consults, try for rehab mid week Admission and Anticipated Discharge Date Admission Date: December 06, 2020 Subjective Patient feels like each day he has more strength. Review of Systems Review of Systems: All systems reviewed & are unremarkable except as noted in HPI & below Physical Exam Physical Exam: General: well developed, well nourished, no acute distress, comfortable Neck: supple, trachea midline, normal thyroid Lungs: clear to auscultation bilaterally, normal effort, no accessory muscle use, no distress Heart: regular S1 and S2, no murmur, peripheral pulses normal, capillary refill normal, no edema Abdomen: soft, NT, ND, + BS, no hepatomegaly, normal to percussion Extremities: normal in appearance, no cyanosis, no petechiae Neuro: awake, cooperative, moves all extremities, no focal motor deficits, CN II-XII intact, sensation in extremities intact, normal speech Skin: warm, dry, no rash, normal turgor Psych: Awake, alert oriented x 3 Results & Data Results & Data ([facility]) Vital Signs (Past 12 Hours) Vital Signs Temp Pulse Pulse Pulse Resp BP Pulse Ox 12/30/20 19:20 37.2 C 88 22 121/73 95 12/30/20 15:59 83 12/30/20 15:00 36.8 C 83 20 121/68 98 12/30/20 10:45 36.8 C 76 18 123/70 95 PG Care Time/CCT Total # of Minutes Spent Total Time Spent with Patient: Total time spent is greater than 50% in coordination of care (as documented) at patient's floor/unit and/or counseling patient: Coding Level of Care Code 90600 Subseq Hosp Care Lvl 2 Diagnoses COVID-19 U07.1 Acute respiratory failure with hypoxia J96.01 GI bleed K92.2 Acute blood loss anemia D62 CKD (chronic kidney disease), stage III N18.3 Leukocytosis D72.829 Diabetes mellitus E11.9 Hypothyroidism E03.9 Dyslipidemia E78.5 Hyperuricemia E79.0 Hypertension I10 Oral candidiasis B37.0 Depressed affect R45.89 Time Spent (min) 25
[2020-12-31] MEDS: LEVOTHYROXINE SODIUM 100 MCG TABLET PO SCH (06:16)
[2020-12-31] MEDS: PANTOprazole 40 MG TAB PO SCH ×2 (08:13→19:10)
[2020-12-31] MEDS: ATORVASTATIN 40 MG TAB PO SCH (08:13)
[2020-12-31] MEDS: allopurinoL 100 MG TAB PO SCH (08:14)
[2020-12-31] MEDS: ZINC SULFATE 220 MG CAPSULE PO SCH (08:14)
[2020-12-31] MEDS: INSULIN GLARGINE SOLOSTAR 100 UNITS/ML 3 ML PEN SC SCH (08:15)
[2020-12-31] MEDS: INSULIN ASPART 100 UNITS/ML 3 ML PEN SC SCH ×3 (08:15→17:38)
--- NOTE | 2021-01-03 07:28 | Discharge Summary ---
Date of Service December 31, 2020 Admission HPI Per Admitting Provider Reid Jaeger is a pleasant 75yo male with history of DM, HTN, CKD presenting with Covid-19 pneumonia, hypoxia. Patient received both doses of his Pfizer vaccine. He was exposed to Covid-19 appx 1 week ago at a wedding. He developed a sore throat, cough, fatigue, malaise, decreased appetite and SOB appx 4 days ago. The shortness of breath has been progressive. Patient had a Covid-19 test performed at [facility] which was POSITIVE. He started Azithromycin yesterday. Patient feels tightness in his chest and feeling to cough something up. No additional complaints at this time. He denies CP/palpitations/abdominal pain/nausea/vomiting/diarrhea or constipation. ER Course: NSS, Dexamethasone Principal Diagnosis COVID 19 Discharge Exam General: well developed, well nourished, no acute distress, comfortable Neck: supple, trachea midline, normal thyroid Lungs: clear to auscultation bilaterally, normal effort, no accessory muscle use, no distress Heart: regular S1 and S2, no murmur, peripheral pulses normal, capillary refill normal, no edema Abdomen: soft, NT, ND, + BS, no hepatomegaly, normal to percussion Extremities: normal in appearance, no cyanosis, no petechiae Neuro: awake, cooperative, moves all extremities, no focal motor deficits, CN II-XII intact, sensation in extremities intact, normal speech Skin: warm, dry, no rash, normal turgor Psych: Awake, alert oriented x 3 Discharge Data Allergies Allergy/AdvReac Type Severity Reaction Status Date / Time No Known Drug Allergies Allergy Verified 09/15/20 13:58 Consultations 12/06/20 05:29 ED Decision to Admit Stat 12/24/20 23:54 Consult Gastroenterology Routine Hospital Course (1) COVID-19: 75yo male with history of DM, HTN, CKD-III presenting with Covid-19, hypoxia 88% on RA in ED. Patient is fully vaccinated against Covid (Pfizer-May) exposed to Covid-19 at a wedding 1 week [employer], Symptoms onset 12/02/11 Was not candidate for Tocilizumab (CRP downtrending and outside of window to give from symptoms onset) Completed 5 days Remdesivir on 12/12 Completed 10 days of dexamethasone Completed full course of empiric abx therapy (rocephin/azithromycin) earlier in the course of hospitalization Initially requiring 3L O2 NM hospital day #2-3, needing 5L but was stable 12/12 (days #12 of viral course)--> Acute hypoxemic respiratory failure (sats 70-80's)-- needed 10L oxymask for sats to recover Was continuing to improve, and was weaned down to 7 L oxygen mask on 12/15, however on 12/16 he was having epistaxis which then caused difficulty breathing through his nose and had to be placed back on oxygen mask at 10 L to recover On 12/17 was requiring 15 L oxygen mask to keep pulse ox greater than 88% and was placed on high flow nasal cannula at 40 L and 85% FiO2 Chest x-ray on 12/17 with progressed bilateral infiltrates On 12/18, requiring 50L and 85-90% FiO2, however as long as he lies on his side, his POx is 95-97%. Sats drop immediately with sitting up or any movement. On 12/19, still requiring 50 L but weaned down to 75% FiO2, with suspected secondary bacterial pneumonia given continued productive sputum, elevated procalcitonin of 2.8, CRP continues to go up to 16, persistent leukocytosis. Is afebrile. On 12/20-was weaned down to 6 L nasal cannula earlier in the day, but had severe desaturation to the mid 70s with getting to bedside commode-placed back on high flow nasal cannula 12/21 - initially on 30L and 40% FiO2, got him down to 6L wall high flow in the afternoon/evening, no distress 12/22 and 12/23 - stable on 4-5L mask, OOB in the chair CXR 12/22 with improved aeration in bases, less infiltrates 12/24 through 12/27, breathing much better, stable on 2-3L mask - IV Zosyn, started 12/19, for coverage for gram-negative pneumonia, completed 7 days on 12/25 - CRP down to 9 on 12/21 - MRSA swab negative-no need for vancomycin likely over COVID, now need to focus on therapy, getting stronger, working out discharge plan PT/OT ordered, work towards likely rehab, hopefully by mid week he is off negative pressure isolation Patient is currently refusing rehab. CUrrently on 2 liter nasal cannula. 2 step determined that patient will require 2 L NC at home. Ok to discharge patient. (2) Acute respiratory failure with hypoxia: marked improvement this week was on Vapotherm on 12/21, now down to 2-3L oxy mask the past three days and breathing much easier suspect he will need oxygen on discharge as well as pulmonary follow up CXR 12/23 with improved aeration, less infiltrates (3) GI bleed: dark stools began 12/23, had more melena, bloody BM night of 12/23 had some soft BP afternoon and evening, responded well to NSS bolus Hb drifted down slowly, was 8.1 on 12/26, transfused one unit, it is 10 today Lovenox and aspirin on hold since AM 12/24, can resume on 12/30 Protonix 40mg IV BID, change to PO tomorrow would continue BID x 4 weeks then daily appreciate GI consult, patient want to avoid EGD if possible no melena for over 72 hours, optimistic that it has stopped, BUN going down from 60 to 20, another good sign (4) Acute blood loss anemia: Hb was 13 on 12/21, down to 10.8 on 12/22 slowly drifted down to 8.1 on 12/26 transfused one unit PRBC, now up to 10 BP stable (5) CKD (chronic kidney disease), stage III: Patient with history of CKD III Cr was up to 2.1 and BUN up to 60 on 12/25, suspect slight bump in numbers due to anemia, soft BP making urine via zeng Cr down to 1.7 and BUN down to 20's, encouraging sign that bleeding has stopped pull zeng on 12/27 to make sure he can urinate (6) Leukocytosis: Likely with secondary bacterial pneumonia as above WBC down to 9k 12/21, no fever finished Zosyn, 7 days (7) Diabetes mellitus: Glimepiride and Metformin currently on hold Developed hypoglycemia for couple of days and insulin doses were decreased Dexamethasone course is now complete some hyperglycemia the past two days, eating a little more increased Lantus to 12 qAM and tighten carb ratio to 12, better coverage the past day (8) Hypothyroidism: Chronic, TSH normal earlier in 2020 -Continue Synthroid 100mcg po daily (9) Dyslipidemia: Chronic -Continue Atorvastatin 40 mg po daily (10) Hyperuricemia: Chronic -Continue Allopurinol daily - decreased dose to 200mg po daily for renal function (11) Hypertension: Blood pressure low normal, low at times with bleeding - lisinopril on hold (12) Oral candidiasis: Started nystatin swish and swallow on 12/20 x 10-day course throat pain is a lot better last day would be 12/29 (13) Depressed affect: frustrated being here, feels like he is never getting home daily encouragement, speaking with him at the bedside, talking about things besides hospitalization encouraged him to take it one day at a time he is in much better mood today, starting to believe that he is going to get out of here DVT prophylaxis- stopped Lovenox due to GI bleeding SCD Disposition-continued stay on telemetry status, COVID is resolved, GI bleed appears to be resolved PT/OT consults, try for rehab mid week Total Time Total Time Spent Total Time Spent (In Minutes): 32 Discharge Plan Discharge Items Patient Disposition: Home - Self-Care Reason For Visit: COVID-19,HYPOXIA Discharge Diagnosis: COVID 19 Activity: Resume your previous activity Non-emergency contact: Primary Care Provider Call non-emergency contact if: you have any medication questions Follow-up/Referrals: Geovanny Avina MD [Primary Care Provider] - 01/13/21 2:45 pm Diet: Carb Consistent or DM2 Addtl Attending Provider Instructions: You were here for COVID 19. You were hospitalized for an extended stay. I am happy to see how far you came along as you required a large amount of oxygen during your stay here, where you peaked around 60 liters per minute. Now you are at a point where you can have oxygen supplementation at home. You can be on 2 liters nasal cannula at rest and ambulation. Recommend you continue with physical therapy to get your strength back up. Recommend followup with PCP in 1-2 weeks. I wish you the best of luck. Pending Studies at Discharge: No Stand-Alone Forms: My [employer], Smoking Cessation Medications and DC Order Prescriptions: New benzonatate [Tessalon Perles] 100 mg Capsule 100 mg PO TID PRN (Reason: cough) Qty: 20 RF: 0 pantoprazole 40 mg Tablet,Delayed Release (Dr/Ec) 40 mg PO BID Qty: 30 RF: 0 zinc sulfate [Orazinc] 50 mg zinc (220 mg) Capsule 220 mg PO QAM Qty: 30 RF: 0 Continued aspirin [Aspir-81] 81 mg tablet,delayed release (DR/EC) 81 mg PO DAILY Qty: 30 RF: 2 levothyroxine 100 mcg capsule 100 mcg PO DAILY Qty: 90 RF: 3 allopurinol 300 mg tablet 300 mg PO DAILY Qty: 90 RF: 3 tadalafil 20 mg tablet 20 mg PO DAILY PRN (Reason: sexual activity) Qty: 10 RF: 3 metformin 500 mg tablet 500 mg PO DAILY Qty: 90 RF: 3 atorvastatin 40 mg tablet 40 mg PO DAILY Qty: 90 RF: 3 glimepiride 4 mg tablet 2 mg PO QAM Qty: 90 RF: 3 Discontinued lisinopril 10 mg tablet 10 mg PO DAILY Qty: 90 RF: 3 azithromycin 250 mg tablet See Rx Instructions PO .COMPLEX Qty: 6 RF: 0 Discharge Orders: Discharge Order (Routine); Ordered 12/31/20 Ordered By: Michael Salas Admission Data Admit Date/Time: 12/06/20 06:35 Attending Provider: Michael Salas Admit Provider: Elissa Lay Primary Care Provider: Geovanny Avina Other Providers: Elissa Lay ; Estrada Wheeler Other Interventions: Discharge Summary Assessment (RN) Last Done: 12/31/20 14:49 Coding Level of Care Code D/C DAY MANAGEMENT >30 MINS Diagnoses COVID-19 U07.1 Acute respiratory failure with hypoxia J96.01 GI bleed K92.2 Acute blood loss anemia D62 CKD (chronic kidney disease), stage III N18.3 Leukocytosis D72.829 Diabetes mellitus E11.9 Hypothyroidism E03.9 Dyslipidemia E78.5 Hyperuricemia E79.0 Hypertension I10 Oral candidiasis B37.0 Depressed affect R45.89
--- NOTE | 2021-01-07 14:06 | Coding Query ---
CODING QUERY To promote full compliance with coding requirements relating to patient care, provider participation is requested in all cases of grocery packer uncertainty. Please assist us with the question(s) below: Coding Question(s): COVID Pneumonia is documented in chart but does not make discharge. Please clarify below: (x ) Patient with COVID Pneumonia ( ) COVID Pneumonia Ruled Out ( ) Other Please Explain: Thank you Jose Del Rosario Principal Diagnosis: "that condition established after study, to be chiefly responsible for occasioning the admission of the patient to the hospital for care." Co-Existing Principal Diagnosis: "when two or more diagnoses equally meet the criteria for principal diagnosis as determined by the circumstances of admission, diagnostic work up, and/or therapy provided, and the Alphabetic Index, Tabular List, or another coding guideline does not provide sequencing direction, any one of the diagnoses may be sequenced first." "When the physician has documented what appears to be a current diagnosis in the body of the record, but has not included the diagnosis in the final diagnostic statement, the physician should be asked whether the diagnosis should be added." (Source Coding Clinic 2 QTR90. p3-4) NALLELY
== END 2020-12-31 19:25 | disposition home or self-care (01) | DRG 177 ==
LOC: ED 03:16 → SUATTDRO 06:35 → 3W 06:35 → 2E 12-12 09:01 → 2S 12-26 06:44